=== PATIENT | male | born 1945 | race Caucasian/White ===

== ENCOUNTER 2019-10-19 19:20 | Inpatient (IN) | payer OTHER, MEDICARE, SELFPAY ==
--- NOTE | 2019-10-19 19:27 | ECG_ITS ---
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 Measurements Intervals [place] Rate: 77 P: DE: -1 QRS: -24 QRSD: 101 T: 31 QT: 309 QTc: 352 Interpretive Statements ATRIAL FIBRILLATION WITH ABERRANT CONDUCTION OR VENTRICULAR PREMATURE COMPLEXES BORDERLINE LEFT AXIS DEVIATION [QRS AXIS < -20] NONSPECIFIC ST & T-WAVE ABNORMALITY ABNORMAL RHYTHM ECG Compared to ECG 07/29/2018 02:25:55 T-wave abnormality now present Myocardial infarct finding no longer present Electronically Signed On 10-20-2019 19:16:35 CDT by Mainor Zhu M.D. [id number]
--- NOTE | 2019-10-19 20:13 | XR_ITS ---
WS: [id number] Portable AP upright chest, 10/19/2019 Clinical Data: SOB Comparison: Portable chest, 07/28/2018. Findings: The pulmonary vascularity is increased. No nodules, masses or effusions are seen. The heart is enlarged. The aortic arch and descending aorta show tortuosity. No pneumonia or pneumothorax is p resent. XR/XR chest 1V portable [id number] Impression: 1. Cardiomegaly and pulmonary vascular congestion. 2. Atherosclerosis.
--- NOTE | 2019-10-19 20:20 | ED_ITS ---
HPI - Weakness General: Stated complaint: WEAKNESS Time Seen by Provider: 10/19/19 19:40 History of Present Illness: HPI Narrative: This patient is a 73-year-old male presents today with weakness. He said he is so weak that he can even get up out of a chair. He normally is alert and active. His symptoms started a week ago after he traveled to his sister's house in [place]. He said at about a 600 mile trip and while he was there he was just tired and they did not really do much. After he got home though weakness and fatigue continued and he came in today for evaluation. He denies chest pain. He has had stents placed in the past and did not have chest pain associated with those episodes. He has had a relatively normal appetite. He denies shortness of breath or cough. He denies fevers chills or body aches. He denies urinary symptoms. He denies changes in bowel habits. He has no pain anywhere. He denies muscle aches. He denies headache or confusion. He is a diabetic and said his blood sugars been fairly well controlled around 120 or 130. He has not had episodes like this before. Complaint: generalized weakness Onset (ago): week(s) (1) Duration: constant Location: generalized Associated symptoms: Denies chest pain, chills, easy bruising, fever(s), headache(s), nausea, short of breath or vomiting Review of Systems General: Reports: 10 or more systems reviewed and unremarkable except in HPI and below Const: Reports: fatigue; Denies: fever(s), chills or malaise Eyes: Denies: change in vision ENMT: Denies: odynophagia Card: Denies: chest pain or swelling of feet/ankles Resp: Denies: dyspnea, productive cough or non-productive cough GI: Denies: abdominal pain, nausea or vomiting : Denies: flank pain Musc: Denies: neck pain or back pain Skin/Breast: Denies: rash Neuro: Reports: other (Generalized weakness); Denies: headache(s), numbness in extremities or weakness in extremities Darvin/Lymph: Denies: easy bruising or easy bleeding PFS ED PFSH: Medical History Atrial fibrillation CAD (coronary artery disease) CHF (congestive heart failure) CKD (chronic kidney disease) Diabetes Hyperlipidemia Hypertension Obesity Renal stones Surgical History History of hernia repair Family History Other CAD (coronary artery disease) Cancer Diabetes Social History Smoking and tobacco status: never smoked Alcohol intake: never Substance/Drug Use: never Lives independently: Yes Household members: other Details: child and grandchild. Housing: Other Current occupational status: retired Physical Exam Const: COMMON NORMALS: no acute distress, patient oriented x3, no limitations and alert GENERAL APPEARANCE: cooperative and comfortable HENMT: HEAD & SCALP: normal to inspection FACE & SINUS: normal facial exam Eye: GENERAL EYE: appearance normal, both eyes and all related structures Neck/C-Spine: COMMON NORMALS: supple, no meningeal signs and no JVD Chest: COMMONS NORMALS: normal inspection of the chest Resp: COMMON NORMALS: normal respiratory effort, No use of accessory muscles and clear to auscultation bilaterally AUSCULTATION: clear to auscultation bilaterally Cardio: COMMON NORMALS: no JVD, regular rate, regular rhythm and No murmurs present (Cardio) RATE: regular rate RHYTHM: regular rhythm GI: COMMON NORMALS: Normal to inspection, nondistended, normoactive bowel sounds present, Soft to palpation and non-tender INSPECTION: Yes normal to inspection AUSCULTATION: Yes normoactive bowel sounds PALPATION: Yes Soft to palpation Back/Pelvis: COMMON NORMALS: thoracic and lumbar spine normal to inspection Extremity: COMMON NORMALS: normal to inspection Neuro: COMMON NORMALS: patient oriented x3, moves all extremities, no focal motor deficits and no sensory deficits noted SENSORIUM/ORIENTATION: Yes alert MENINGEAL SIGNS: Yes no meningeal signs Psych: COMMON NORMALS: mental status grossly normal, cooperative and normal affect Skin: COMMON NORMALS: no rashes or lesions noted and turgor normal GENERAL SKIN EXAM: no rashes or lesions noted and turgor normal Course ED course: Patient continues to be awake and alert in the ED. He was comfortable. He complained of being thirsty. He continued to deny dyspnea although was clearly tachypneic and somewhat labored. Sats were in the low 90s on oxygen supplementation. He is agreeable to admission for further work-up. Discussed with Dr. Briones. Vital Signs: Vital signs: Vital Signs Temperature 98.5 F 10/21/19 02:44 Pulse Rate 68 10/21/19 02:44 Respiratory Rate 32 H 10/21/19 02:44 Blood Pressure 106/68 10/21/19 02:44 Pulse Oximetry 93 10/21/19 03:37 MDM - Weakness MDM Narrative: Medical decision making narrative: Generalized weakness with really no other focal symptoms. History of CHF. History of A. fib on amiodarone. History of travel with a 600 mile car trip. No known exposure to COVID but again, he has had recent travel. No fever cough. Requiring oxygen which is not his typical. His sats are 91% on 2 L. Question of CHF versus PE versus COVID. CT angiogram cannot be done due to his chronic renal failure. BNP is not significantly elevated but will treat with some Lasix. Amiodarone induced pulmonary fibrosis is also a concern. Admit for further work-up. Empiric treatment with Lovenox. COVID testing. Lab Data: Labs: Lab Results 10/19/19 10/19/19 10/19/19 Range/Units 19:55 19:55 19:55 WBC 8.5 (4.0-10.0) 10^3/ uL RBC 4.63 (4.1-5.3) 10^6/u L Hgb 14.2 (11.7-16.6) g/dL Hct 44.4 (42.0-52.0) % MCV 95.9 H (80-94) fL MCH 30.7 (28.0-34.0) pg MCHC 32.0 (30.0-36.0) g/dL RDW 12.3 (12.1-15.1) % Plt Count 164 (130-400) 10^3/c mm MPV 11.1 H (7.4-10.4) fL Neut % (Auto) 78.4 % Lymph % (Auto) 13.5 % Titus % (Auto) 7.8 % Eos % (Auto) 0.0 % Baso % (Auto) 0.1 % Neut # (Auto) 6.63 (1.8-7.7) 10^3/u L Lymph # (Auto) 1.1 (0.8-4.8) 10^3/u L Titus # (Auto) 0.7 (0.2-0.9) 10^3/u L Eos # (Auto) 0.0 (0.0-0.8) 10^3/u L Baso # (Auto) 0.0 (0.0-0.1) 10^3/u L Nucleated RBC % (a uto) 0 % Nucleated RBCs # 0.0 /100WBC ESR (0-10) mm/hr D-Dimer (0-0.59) ug/mIFE U Sodium 138 (136-145) mmol/L Potassium 3.8 (3.5-5.1) mmol/L Chloride 96 L (98-107) mmol/L Carbon Dioxide 29 (22-29) mmol/L Anion Gap 16.8 (5-19) BUN 26 H (8-23) mg/dL Creatinine 2.2 H (0.7-1.2) mg/dL Glucose 148 H (65-115) mg/dL Calculated Osmolal ity 286 (285-295) mOsm/k g Lactate (0.5-2.2) mmol/L Calcium 8.7 (8.5-10.5) mg/dL Magnesium 2.4 H (1.7-2.3) mg/dL Total Bilirubin 0.6 (0.15-1.2) mg/dL AST 58 H (0-40) U/L ALT 42 H (0-41) U/L Alkaline Phosphata se 47 (40-130) IU/L Creatine Kinase 478 H* (39-308) U/L Troponin T Baselin e 29 H (0-15) ng/L Troponin T 120 Min chicken ranch (0-15) ng/L Delta Troponin T (0-10) ABS# C-Reactive Protein (0.0-4.9) mg/L NT-Pro-B Natriuret Pep 786 H (0-125) pg/mL Total Protein 7.0 (6.6-8.7) g/dL Albumin 3.2 L (3.5-5.2) g/dL Globulin 3.8 (1.3-4.6) g/dL Procalcitonin (0-0.5) ng/mL TSH 0.80 (0.27-4.20) uIU/ mL Urine Color (Yellow) Urine Appearance (CLEAR) Urine pH (5-7) Ur Specific Gravit y (1.005-1.030) Urine Protein (Negative) Urine Glucose (UA) (Normal) Urine Ketones (Negative) Urine Blood (Negative) Urine Nitrate (Negative) Urine Bilirubin (NEGATIVE) Urine Urobilinogen (Negative) mg/dL Ur Leukocyte Oksana ase (Negative) Urine RBC (0-2) /hpf Urine WBC (0-5) /hpf Ur Squamous Epith Cells (0-5) Urine Bacteria (NONE) Hyaline Casts 10/19/19 10/19/19 10/19/19 Range/Units 19:55 19:55 19:55 WBC (4.0-10.0) 10^3/ uL RBC (4.1-5.3) 10^6/u L Hgb (11.7-16.6) g/dL Hct (42.0-52.0) % MCV (80-94) fL MCH (28.0-34.0) pg MCHC (30.0-36.0) g/dL RDW (12.1-15.1) % Plt Count (130-400) 10^3/c mm MPV (7.4-10.4) fL Neut % (Auto) % Lymph % (Auto) % Titus % (Auto) % Eos % (Auto) % Baso % (Auto) % Neut # (Auto) (1.8-7.7) 10^3/u L Lymph # (Auto) (0.8-4.8) 10^3/u L Titus # (Auto) (0.2-0.9) 10^3/u L Eos # (Auto) (0.0-0.8) 10^3/u L Baso # (Auto) (0.0-0.1) 10^3/u L Nucleated RBC % (a uto) % Nucleated RBCs # /100WBC ESR 80 H (0-10) mm/hr D-Dimer 0.80 H (0-0.59) ug/mIFE U Sodium (136-145) mmol/L Potassium (3.5-5.1) mmol/L Chloride (98-107) mmol/L Carbon Dioxide (22-29) mmol/L Anion Gap (5-19) BUN (8-23) mg/dL Creatinine (0.7-1.2) mg/dL Glucose (65-115) mg/dL Calculated Osmolal ity (285-295) mOsm/k g Lactate 1.5 (0.5-2.2) mmol/L Calcium (8.5-10.5) mg/dL Magnesium (1.7-2.3) mg/dL Total Bilirubin (0.15-1.2) mg/dL AST (0-40) U/L ALT (0-41) U/L Alkaline Phosphata se (40-130) IU/L Creatine Kinase (39-308) U/L Troponin T Baselin e (0-15) ng/L Troponin T 120 Min chicken ranch (0-15) ng/L Delta Troponin T (0-10) ABS# C-Reactive Protein (0.0-4.9) mg/L NT-Pro-B Natriuret Pep (0-125) pg/mL Total Protein (6.6-8.7) g/dL Albumin (3.5-5.2) g/dL Globulin (1.3-4.6) g/dL Procalcitonin (0-0.5) ng/mL TSH (0.27-4.20) uIU/ mL Urine Color (Yellow) Urine Appearance (CLEAR) Urine pH (5-7) Ur Specific Gravit y (1.005-1.030) Urine Protein (Negative) Urine Glucose (UA) (Normal) Urine Ketones (Negative) Urine Blood (Negative) Urine Nitrate (Negative) Urine Bilirubin (NEGATIVE) Urine Urobilinogen (Negative) mg/dL Ur Leukocyte Oksana ase (Negative) Urine RBC (0-2) /hpf Urine WBC (0-5) /hpf Ur Squamous Epith Cells (0-5) Urine Bacteria (NONE) Hyaline Casts 10/19/19 10/19/19 10/19/19 Range/Units 19:55 20:25 21:40 WBC (4.0-10.0) 10^3/ uL RBC (4.1-5.3) 10^6/u L Hgb (11.7-16.6) g/dL Hct (42.0-52.0) % MCV (80-94) fL MCH (28.0-34.0) pg MCHC (30.0-36.0) g/dL RDW (12.1-15.1) % Plt Count (130-400) 10^3/c mm MPV (7.4-10.4) fL Neut % (Auto) % Lymph % (Auto) % Titus % (Auto) % Eos % (Auto) % Baso % (Auto) % Neut # (Auto) (1.8-7.7) 10^3/u L Lymph # (Auto) (0.8-4.8) 10^3/u L Titus # (Auto) (0.2-0.9) 10^3/u L Eos # (Auto) (0.0-0.8) 10^3/u L Baso # (Auto) (0.0-0.1) 10^3/u L Nucleated RBC % (a uto) % Nucleated RBCs # /100WBC ESR (0-10) mm/hr D-Dimer (0-0.59) ug/mIFE U Sodium (136-145) mmol/L Potassium (3.5-5.1) mmol/L Chloride (98-107) mmol/L Carbon Dioxide (22-29) mmol/L Anion Gap (5-19) BUN (8-23) mg/dL Creatinine (0.7-1.2) mg/dL Glucose (65-115) mg/dL Calculated Osmolal ity (285-295) mOsm/k g Lactate (0.5-2.2) mmol/L Calcium (8.5-10.5) mg/dL Magnesium (1.7-2.3) mg/dL Total Bilirubin (0.15-1.2) mg/dL AST (0-40) U/L ALT (0-41) U/L Alkaline Phosphata se (40-130) IU/L Creatine Kinase (39-308) U/L Troponin T Baselin e (0-15) ng/L Troponin T 120 Min chicken ranch 29.51 H (0-15) ng/L Delta Troponin T 0.51 (0-10) ABS# C-Reactive Protein 159.4 H (0.0-4.9) mg/L NT-Pro-B Natriuret Pep (0-125) pg/mL Total Protein (6.6-8.7) g/dL Albumin (3.5-5.2) g/dL Globulin (1.3-4.6) g/dL Procalcitonin 0.29 (0-0.5) ng/mL TSH (0.27-4.20) uIU/ mL Urine Color Yellow (Yellow) Urine Appearance Clear (CLEAR) Urine pH 5 (5-7) Ur Specific Gravit y 1.015 (1.005-1.030) Urine Protein 1+ H (Negative) Urine Glucose (UA) Norm (Normal) Urine Ketones Negative (Negative) Urine Blood 2+ H (Negative) Urine Nitrate Negative (Negative) Urine Bilirubin Neg (NEGATIVE) Urine Urobilinogen Norm (Negative) mg/dL Ur Leukocyte Oksana ase Negative (Negative) Urine RBC 0-4 H (0-2) /hpf Urine WBC None (0-5) /hpf Ur Squamous Epith Cells None (0-5) Urine Bacteria Trace (NONE) Hyaline Casts 5-10 H EKG Data^: EKG 1: EKG interpretation date: 10/19/19 EKG interpretation time: 20:48 Interpretation: A. fib with a rate of 77. QRS duration is 101 ms. Some PVCs noted. T waves are flat with no noted elevation. Discharge Plan Discharge Admit Provider: Jose Eduardo Briones Discharge Date/Time: 10/20/19 01:28 Coding Level of Care Code ED Software Test Automation Engineer for Chg Fwd Exam Comprehensive
[2019-10-19 20:26] LABS: Basophils % 0.1 %; Hematocrit 44.4 % (42.0-52.0); Hemoglobin 14.2 g/dL (11.7-16.6); Lymphocytes # 1.1 10^3/uL (0.8-4.8); Lymphocytes % 13.5 %; Mean Corpuscular Hemoglobin 30.7 pg (28.0-34.0); Mean Corpuscular Volume 95.9 fL (80-94); Mean Platelet Volume 11.1 fL (7.4-10.4); Monocytes # 0.7 10^3/uL (0.2-0.9); Monocytes % 7.8 %; Neutrophils # 6.63 10^3/uL (1.8-7.7); Neutrophils % 78.4 %; Nucleated Red Blood Cells % 0 %; Platelet Count 164 10^3/cmm (130-400); Red Blood Count 4.63 10^6/uL (4.1-5.3); Red Cell Distribution Width 12.3 % (12.1-15.1); White Blood Count 8.5 10^3/uL (4.0-10.0)
[2019-10-19 20:53] LABS: Troponin(5th) Baseline 29 ng/L (0-15)
[2019-10-19 20:55] LABS: Alanine Aminotransferase 42 U/L (0-41); Albumin Level 3.2 g/dL (3.5-5.2); Alkaline Phosphatase 47 IU/L (40-130); Anion Gap 16.8 (5-19); Aspartate Amino Transferase 58 U/L (0-40); Blood Urea Nitrogen 26 mg/dL (8-23); Calcium 8.7 mg/dL (8.5-10.5); Carbon Dioxide 29 mmol/L (22-29); Chloride 96 mmol/L (98-107); Globulin 3.8 g/dL (1.3-4.6); Glucose 148 mg/dL (65-115); Magnesium 2.4 mg/dL (1.7-2.3); NT Pro B Type Natriuretic Pept 786 pg/mL (0-125); Osmolality Calculated 286 mOsm/kg (285-295); Potassium 3.8 mmol/L (3.5-5.1); Sodium 138 mmol/L (136-145); Total Bilirubin 0.6 mg/dL (0.15-1.2)
[2019-10-19 20:58] LABS: Bilirubin Urine Neg (NEGATIVE); Blood Urine 2+ (Negative); Glucose Urine UA Norm (Normal); Ketones Urine Negative (Negative); Leukocyte Esterase Urine Negative (Negative); Nitrate Urine Negative (Negative); Protein Urine 1+ (Negative); Specific Gravity, Urine 1.015 (1.005-1.030); Urine Appearance Clear (CLEAR); Urine Color Yellow (Yellow); Urobilinogen Urine Norm (Negative); pH Urine 5 (5-7)
[2019-10-19 21:02] LABS: RBC Urine 0-4 /hpf (0-2)
[2019-10-19 21:03] LABS: Add Urine Culture? No; Bacteria Urine TRACE
[2019-10-19 21:14] LABS: Creatine Phosphokinase 478 U/L (39-308)
--- NOTE | 2019-10-19 21:27 | ECG_ITS ---
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 Measurements Intervals [place] Rate: 77 P: UT: -1 QRS: -25 QRSD: 96 T: 13 QT: 395 QTc: 448 Interpretive Statements ATRIAL FIBRILLATION WITH ABERRANT CONDUCTION OR VENTRICULAR PREMATURE COMPLEXES BORDERLINE LEFT AXIS DEVIATION [QRS AXIS < -20] NONSPECIFIC ST & T-WAVE ABNORMALITY ABNORMAL RHYTHM ECG Compared to ECG 10/19/2019 19:44:24 No significant changes Electronically Signed On 10-20-2019 19:19:04 CDT by Mainor Zhu M.D. [email or web address]Legal Eggnoxubee general hospitalMovarispremier health mi[facility] [email or web address].VULCUN/store/[id number]
[2019-10-19 21:50] LABS: Lactate (Lactic Acid level) 1.5 mmol/L (0.5-2.2)
[2019-10-19 22:00] LABS: Procalcitonin 0.29 ng/mL (0-0.5)
[2019-10-19] MEDS: FUROsemide 10 mg/mL SDV 4mL 40 MG IVP (22:02)
[2019-10-19] MEDS: enoxaparin 100 mg/mL Syringe SUBCUT (22:03)
[2019-10-19 22:10] LABS: C Reactive Protein 159.4 mg/L (0.0-4.9)
[2019-10-19 22:15] LABS: Troponin 5 2HR 29.51 ng/L (0-15); Troponin 5 2HR Delta 0.51 ABS# (0-10)
[2019-10-19 22:25] LABS: ABG PCO2 38.3 mmHg (35-45); ABG PH Result 7.47 (7.35-7.45); Arterial Blood Gas Hematocrit 44.3 % (42-52); Base Excess ABG 4.3 mmol/L (-2.0-2.0); Blood Gas Allen Test Pos; Blood Gas Sample Site Brachial, right; Blood Gas Sample Type Arterial; HCO3 ABG 28.1 mmol/L (22-26); Oxygen Device NC
[2019-10-19 22:31] LABS: Erythrocyte Sedimentation Rate 80 mm/hr (0-10)
[2019-10-20] VITALS (39 sets, daily range): BP systolic 112–166; BP diastolic 67–93; PULSE 64–100; RESP 14–37; TEMP 36.7–38.3; O2SAT 85–96
--- NOTE | 2019-10-20 01:27 | ECG_ITS ---
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 Measurements Intervals [place] Rate: 79 P: ND: -1 QRS: -30 QRSD: 104 T: 31 QT: 308 QTc: 354 Interpretive Statements ATRIAL FIBRILLATION BORDERLINE LEFT AXIS DEVIATION [QRS AXIS < -20] NONSPECIFIC ST & T-WAVE ABNORMALITY ABNORMAL RHYTHM ECG Compared to ECG 10/19/2019 21:26:24 Ventricular premature complex(es) no longer present Aberrant conduction of supraventricular beat(s) no longer present T-wave abnormality still present Electronically Signed On 10-20-2019 19:19:31 CDT by Mainor Zhu M.D. [email or web address] [email or web address] regional health centerPopJamwilson [email or web address].[email or web address]/store/[id number]
[2019-10-20 02:11] LABS: Troponin 5 6HR 17.12 ng/L (0-15)
--- NOTE | 2019-10-20 02:24 | P.HP_ITS ---
Providers/Chief Complaint Admitting Physician: Jose Eduardo Briones Primary Care Provider: Nahum Mccarthy Chief Complaint: WEAKNESS History of Present Illness Vinh Potts is a pleasant 73 year old gentleman with past medical history of CAD, paroxysmal atrial fibrillation, chronic disease, DM 2, HLD, HTN, obesity reports about a 2-week history of progressive malaise, fatigue/generalized weakness. He reports that his symptoms originally started when he was out with his son-in-law driving to [place] for a visit where he stayed for about a week, with symptoms starting about 2 hours into the outbound trip. He states that he felt unwell through most of his stay in [place], except continued after coming back here about a week ago. He states he has been having fatigue, and some shortness of breath, but otherwise denies any chills, fever, muscle aches, headache, sore throat, runny nose or loss of sensation of smell. Here he was noted with hypoxia, requiring 2 L of nasal cannula oxygen initially, but subsequently up to 6 L. With noted fever 100.9. With noted diffuse infiltrates on chest x-ray, worse on the right. He denies any chest pain or cough. Denies any sputum production or hemoptysis. He takes Eliquis, although is not entirely sure what for, but appears likely for atrial fibrillation. He says he has not missed any doses. Review of Systems Const: Denies: fever(s), chills, body aches or malaise Eyes: Denies: change in vision or eye redness ENMT: Denies: throat pain, oral sores or ear or mastoid pain Card: Denies: chest pain, edema, pre-syncope or dyspnea on exertion Resp: Denies: dyspnea, productive cough, change in phlegm color or hemoptysis GI: Denies: abdominal pain, nausea, vomiting, diarrhea, constipation, hematochezia or melena : Denies: flank pain, difficulty urinating, urinary frequency or hematuria Musc: Denies: back pain, joint swelling or joint redness Skin/Breast: Denies: rash, sores or new lesions Neuro: Denies: headache(s), numbness in extremities, weakness in extremities, dizziness, confusion or seizure-like activity Endo: Denies: polyuria or polydipsia Darvin/Lymph: Denies: easy bleeding or purpura All/Imm: Denies: urticaria, throat swelling or tongue swelling Medications/Allergies Home Medications Medication Instructions Recorded Confirmed Last Taken Type amiodarone 200 mg tablet 200 mg PO DAILY 07/28/19 Unknown History apixaban 5 mg tablet 5 mg PO BID 07/28/19 Unknown History atorvastatin 80 mg tablet 80 mg PO DAILY 07/28/19 Unknown History calcitriol 0.25 mcg capsule 0.25 mcg PO DAILY 07/28/19 Unknown History carvedilol 12.5 mg tablet 12.5 mg PO BID 07/28/19 Unknown History cholecalciferol (vitamin D3) 50 50 mcg PO DAILY 07/28/19 Unknown History mcg (2,000 unit) capsule clopidogrel 75 mg tablet 75 mg PO DAILY 07/28/19 Unknown History doxazosin 4 mg tablet 4 mg PO DAILY 07/28/19 Unknown History furosemide 20 mg tablet 40 mg PO BID tab 07/28/19 Unknown History glipizide 5 mg tablet 2.5 mg PO BID tab 07/28/19 Unknown History insulin aspart U-100 100 unit/mL 18 unit SUBCUT DAILY ml 07/28/19 Unknown History (3 mL) subcutaneous pen insulin glargine 100 unit/mL 100 unit SUBCUT DAILY 07/28/19 Unknown History subcutaneous solution lisinopril 20 mg tablet 20 mg PO DAILY 07/28/19 Unknown History omega-3 fatty acids 1,000 mg 1,000 mg PO BID 07/28/19 Unknown History capsule potassium chloride 20 mEq 10 meq PO DAILY tab 07/28/19 Unknown History tablet,extended release(part/cryst) Allergies Allergy/AdvReac Type Severity Reaction Status Date / Time No Known Allergies Allergy Unverified 07/28/19 12:45 PFSH Acute PFSH: Medical History Atrial fibrillation CAD (coronary artery disease) CHF (congestive heart failure) CKD (chronic kidney disease) Diabetes Hyperlipidemia Hypertension Obesity Renal stones Surgical History History of hernia repair Family History Other CAD (coronary artery disease) Cancer Diabetes Social History Smoking and tobacco status: never smoked Alcohol intake: never Substance/Drug Use: never Lives independently: Yes Household members: other Details: child and grandchild. Housing: Other Current occupational status: retired Vitals/I&O/Wt Last Vital Signs Temp 100.9 F H 10/20/19 02:07 Pulse 96 10/20/19 02:07 Resp 36 H 10/20/19 02:07 BP 166/70 10/20/19 02:07 Pulse Ox 91 10/20/19 02:07 Physical Exam Const: COMMON NORMALS: no acute distress and patient oriented x3 HENMT: COMMON NORMALS: oropharynx normal Neck/C-Spine: COMMON NORMALS: no JVD Resp: COMMON NORMALS: normal respiratory effort AUSCULTATION: diminished lung sounds Cardio: COMMON NORMALS: no JVD, regular rhythm, S1 normal heart sound present, S2 normal heart sound present and No murmurs present (Cardio) RHYTHM: regular rhythm HEART SOUNDS: S1 normal heart sound present and S2 normal heart sound present GI: COMMON NORMALS: Normal to inspection, nondistended, normoactive bowel s ounds present, Soft to palpation and non-tender PALPATION: Yes Soft to palpation Extremity: COMMON NORMALS: no joint enlargement and no pedal edema Neuro: COMMON NORMALS: patient oriented x3 and moves all extremities Skin: COMMON NORMALS: no rashes or lesions noted GENERAL SKIN EXAM: no rashes or lesions noted Data : 10/19/19 19:55 10/19/19 19:55 A&P Assessment and plan (1) Acute respiratory failure with hypoxia: With fatigue/generalized weakness. Has been doing well on 2 L nasal cannula, however, is needing increase up to 6 L, saturating 92%. D-dimer was checked, and is high, initially there was consideration of possible PE given recent travel, however, he is on Eliquis, and states has not missed any doses. Received a dose of Lovenox in ER, however, may continue Eliquis. He has noted history of CHF, however, on review of last echocardiogram, this was done in 2017, with normal ejection fraction, but with pulmonary hypertension. He has no chest pain. Troponin minimally elevated. A. fib rhythm on EKG. Pneumonia, community-acquired, is considered given his fever, hypoxia. He does not have significant cough. There are diffuse opacities, worse on the right. He reportedly subjectively was not considerably short of breath. He does state that he has been social distancing, and wearing a mask while in public. He does live with his child and grandchild at home. Recently his travel to [place], although does state that symptoms were starting already on the way there. Will be assessed for COVID-19, requested also rapid flu. Request for sputum culture, bacterial antigens. For now empirically will cover with Levaquin. However, as discussed with him concern is higher for viral pneumonia. Maintain in isolation at this time. Prescription of goals of care and CODE STATUS with him, he states he would not want CPR in case of cardiopulmonary arrest, and giving it consideration, states would not want even temporary intubation in case of worsening respiratory status. He would be okay with receiving CPAP or BiPAP support if necessary. Status: Acute (2) Community acquired pneumonia: As above. Status: Acute (3) Acute kidney injury superimposed on CKD: Creatinine 2.2. Stage III chronic disease. Baseline creatinine appears around 2. Monitor renal function, urine output. Hold lisinopril for now. Status: Acute (4) Transaminitis: Mild transaminitis. Will hold statin for now. Recheck. Consider that he is also on amiodarone if there is no improvement. Status: Acute (5) Elevated erythrocyte sedimentation rate: Unclear reason obvious elevation at this time. Will request for CRP. Status: Acute (6) Elevated CK: Suspect may be mild rhabdomyolysis secondary to statin. Hold statin for now. Recheck. Monitor renal function. Status: Acute (7) Hypoglycemia: Hold lantus for now. Hold novolog when she takes 24 units of in the morning and afternoon. Blood glucose was as low as 60. Please reassess, resume insulin therapy when appropriate. Status: Acute Additional A&P Information History of CHF: Reported. He takes Lasix at home. Will transition to IV 40 mg twice a day. Avoid fluid overload. HTN HLD CAD Diabetes Other chronic problems Attestations Medical Necessity Statement*: Admission of over 2 midnights is going to needed for assessment of management of acute respiratory failure with hypoxia. 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
--- NOTE | 2019-10-20 02:38 | PC.NURSE ---
Pt arrived to floor from ER via stretcher. States that he is very weak and unable to stand. Pt is also dyspneic at rest and of course, extremely worse with very minimal activity. O2 at 4 L from ER and pulse ox 86-89%. Therefore, O2 increased to 6L. O2 improved to 90-91%. RR 30-40 bpm with accessory muscle use. Mild non productive cough. Denies home O2. Pt slid over with x3 assist to bed. Cleaned of incontinent urine and bowel episode. Repositioned in bed. No complaints of pain. Noted BLE edema +1. Dr. Paulino at bedside assessing patient. Pt instructed how to use call button and oriented to room. No further needs addressed at this time. Respiratory therapy notified of current respiratory status.
[2019-10-20] MEDS: levofloxacin-dextrose 5 % 750 MG/150 ML PREMIX 100 MG IV (04:00)
[2019-10-20] MEDS: sodium chloride 0.9% (100 ml) 100 ML 10 ML (04:30)
--- NOTE | 2019-10-20 04:32 | PC.NURSE ---
Pt resting in bed. Still dyspneic at rest with tachypnea. On high flow nasal cannula at 6L. Desat with minimal talking. No complaints of pain. Snack provided. Denies need to urinate. IV atb infusing per orders, SEE MAR. EKG performed. Labs obtained. No further needs at this time.
[2019-10-20 04:48] LABS: C Reactive Protein 154.1 mg/L (0.0-4.9)
[2019-10-20 05:10] LABS: Influenza A by IFA Negative (Negative); Influenza B by IFA Negative (Negative)
[2019-10-20 06:26] LABS: Glucose Point of Care 229 mg/dL (70-110)
--- NOTE | 2019-10-20 06:44 | PC.NURSE ---
Pt assisted with urinal. Becomes very dyspneic even with assist. O2 increased to 8L Nc due to O2 sat not improving with rest. 200ml urine output. Dr. Paulino notified and ordered davis cath to be placed. Attempted to place davis catheter but stock is out on all units at this time. Storeroom notified and asked to deliver davis catheter TG. Pt assisted to bedside commode with x1 assist. O2 decreased to 80%. Slow to return. Loose, watery, malodorous stool. Will notiy oncoming shift.
[2019-10-20] MEDS: albuterol 8 gm MDI 1 PUFF INHALATION ×3 (07:46→15:38)
--- NOTE | 2019-10-20 08:08 | USCV_ITS ---
Vinh Potts Age: 73 Gender: M : 1945 Exam Date: 10/20/2019 09:40 Ordering Phys: Hermes Tobar MD Technologist: Agnes Lou Exam Location: [facility] [place] Indication: sob BP: 120 / 72 HR: 76 Rhythm: Sinus Technical Quality: Fair MEASUREMENTS (Male / Female) Normal Values 2D ECHO LV Diastolic Diameter PLAX 3.6 cm 4.2 - 5.9 / 3.9 - 5.3 cm LV Systolic Diameter PLAX 2.4 cm IVS Diastolic Thickness 0.8 cm 0.6 - 1.0 / 0.6 - 0.9 cm IVS Systolic Thickness 1.8 cm LVPW Diastolic Thickness 1.0 cm 0.6 - 1.0 / 0.6 - 0.9 cm LVPW Systolic Thickness 1.2 cm LVOT Diameter 2.1 cm LV Ejection Fraction 2D Teich 65.2 % LV Ejection Fraction MOD 2C 56.1 % LV Ejection Fraction 2C AL 56.1 % LA Diameter 4.2 cm LA Width 4.0 cm LA Height 6.8 cm RA Width 3.5 cm RA Height 5.0 cm M-MODE LV Diastolic Diameter MM 3.7 cm 4.2 - 5.9 / 3.9 - 5.3 cm LV Systolic Diameter MM 1.8 cm LV Ejection Fraction MM Teich 83.7 % IVS Diastolic Thickness MM 1.7 cm 0.6 - 1.0 / 0.6 - 0.9 cm IVS Systolic Thickness MM 2.1 cm LVPW Diastolic Thickness MM 1.3 cm 0.6 - 1.0 / 0.6 - 0.9 cm LVPW Systolic Thickness MM 2.0 cm Aortic Annulus Diameter 3.3 cm LA Ao Ratio MM 1.3 MV E Point Septal Separation 0.6 cm DOPPLER AV Peak Velocity 134.0 cm/s LVOT Peak Velocity 80.0 cm/s AV Area Cont Eq vti 2.5 cm squared AV Area Cont Eq pk 2.0 cm squared MV Peak Velocity 115.0 cm/s MV Area PHT 3.1 cm squared Mitral E to A Ratio 4.6 MV E' Velocity 8.0 cm/s Mitral E to MV E' Ratio 11.9 Mitral E to LV E' Lateral Ratio 12.2 Mitral E to LV E' Septal Ratio 11.6 TR Peak Velocity 119.0 cm/s TR Peak Gradient 5.7 mmHg Right Atrial Pressure 3.0 mmHg Pulmonary Artery Systolic Pressu 8.7 mmHg PV Peak Velocity 90.0 cm/s RV Acceleration Time 0.1 s FINDINGS Left Ventricle Normal left ventricular size and systolic function with no regional wall motion abnormalities. Left ventricular ejection fraction is estimated at 63 %. Right Ventricle Normal right ventricular size and systolic function, RVSP 8.7 mmHg. Right Atrium Right atrium not well visualized. Normal right atrial size. Left Atrium Left atrium not well visualized. Mitral Valve Mitral valve not well visualized. Aortic Valve Structurally normal trileaflet aortic valve. No aortic valve stenosis. Tricuspid Valve Structurally normal tricuspid valve. Trace tricuspid valve regurgitation. Pulmonic Valve Pulmonic valve not well visualized. No pulmonary valve stenosis. Pericardium No pericardial effusion. Aorta Aorta not well visualized. CONCLUSIONS 1. This is a technically difficult study. 2. Normal left ventricular size and systolic function with no diagnostic regional wall motion abnormalities. Left ventricular ejection fraction is estimated at 63 %. 3. Normal right ventricular size and systolic function. 4. Normal pulmonary artery pressure. 5. No significant valvular abnormality. 6. When compared to previous echocardiogram dated 10/30/2016, there may not have been any significant change. Angélica Eden MD (Electronically Signed) Final Date: 20 October 2019 18:08 S
--- NOTE | 2019-10-20 08:08 | CT_ITS ---
WS: [id number] CT CHEST TECHNIQUE: Noncontrast CT of the chest with coronal and sagittal reformatted images. CLINICAL INFORMATION: sob COMPARISON: None. DLP: 645.[address] scans at [facility] use at least one of these dose optimization techniques: automat ed exposure control; mA and/or kV adjustment per patient size (includes targeted exams where dose is matched to clinical indication); or iterative reconstruction. FINDINGS: Moderate chronic emphysematous changes. Diffuse hazy groundglass infiltrates throughout both lungs. N o focal consolidation. Coronary calcification. No mediastinal or hilar lymphadenopathy. No axillary l ymphadenopathy. Partially visualized large gallstone. No significant pleural fluid. No pericardial fluid. Small cyst noted in the liver measuring 2.3 cm. Normal GE junction. Fatty atrophy of the pancreas. Adrenal gland s are normal. Hypertrophic changes thoracic spine. Notified Hermes Tobar MD at 10/20/2019 1:[address]/CT chest wo con [id number] IMPRESSION: 1. Diffuse hazy groundglass infiltrates throughout both lungs. Findings are no nspecific but can be seen with atypical pneumonia or viral pneumonias including Covid-19. 2. No significant pleural fluid. No focal consolidation. 3. No mediastinal or hilar lymphadenopathy. 4. Coronary calcification. 5. Prominent gallstone in the gallbladder. Gallbladder appears contracted. No visualized wall thickening or fluid.
[2019-10-20 08:47] LABS: NT Pro B Type Natriuretic Pept 650 pg/mL (0-125); Procalcitonin 0.31 ng/mL (0-0.5); Thyroid Stimulating Hormone 0.34 uIU/mL (0.27-4.20)
[2019-10-20] MEDS: apixaban 5 mg Tablet PO ×2 (08:51→18:22)
[2019-10-20] MEDS: carvedilol 6.25 mg Tablet PO ×2 (08:51→18:22)
[2019-10-20] MEDS: clopidogrel 75 mg Tablet PO (08:51)
[2019-10-20] MEDS: azithromycin 500 MG in sodium chloride 0.9% 250 ML 250 MG IV (08:51)
[2019-10-20] MEDS: amiodarone 200 mg Tablet PO (08:51)
[2019-10-20 10:45] LABS: Cortisol Random 24.14 ug/mL (2.47-19.5)
[2019-10-20] MEDS: piperacillin-tazobactam 3.375 GM in sodium chloride 0.9% (plus) 50 ML IV ×2 (10:59→19:03)
[2019-10-20] MEDS: FUROsemide 10 mg/mL SDV 4mL 40 MG IVP ×2 (11:00→19:02)
[2019-10-20 11:20] LABS: Glucose Point of Care 308 mg/dL (70-110)
--- NOTE | 2019-10-20 11:22 | PC.CHAP ---
Pastoral Care Encounter/Spiritual Assessment Type of Contact [] Declined head machine feeder visit [] Patient/Family/Request visit [] Outpatient visit [] Follow-up visit [] Physician referral [] Code/Alert [] Routine visit [] Staff referral [] Actively dying [] Patient sleeping [] Family support [] [] Out of room [] Palliative care [] [] Receiving care in room [] Pre-surgical visit [] Trauma [] Long length of stay [] ICU visit [x] Other: Covid 19 testing Relational/Emotional Strength [] Patient feels connected with others/family/visitors/staff [] Distress [] Loneliness/isolation [] Abandonment Spirituality of Patient [] Person of Tiff [] Attends Episcopal of their Tiff [] Believes in Prayer [] Reads Bible or Roman Catholic materials [] There are Spiritual issues to be addressed Screener And Blender Interventions [] Prayer [] Active listening [] Non-anxious presence [] Spiritual/emotional support [] Crisis/trauma care [] Spiritual counseling [] Bereavement support [] Provided bereavement packet [] Provided Bible/devotional materials [] Provided toy/stuffed animal, coloring book to patient or family member [] Provided Communion [] Anointing/Fleming [] Salvation [] Completed spiritual assessment [] Other: Impact on Illness or Injury [] Angry [] Fearful [] Anxious [] Often cries [] Exhaustion [] Unable to work [] Unable to attend judaism [] Unable to walk/stand [] Unable to read [] Unable to drive [] Unable to eat/drink [] Unable to sleep [] Unable to be with family [] Patient intubated [] Other: Summary Other: Covid 19 testing Time spent with patient 5 mins
--- NOTE | 2019-10-20 14:00 | PC.NURSE ---
Order to transfer patient to ICU on hold per Dr. Tobar pending the covid test results. Dr. Tobar states the CT results are highly suggestive of positive covid results and if davin swab comes back positive patient will transfer to VICU instead.
--- NOTE | 2019-10-20 14:10 | PM.PN ---
Subjective Subjective: Interval history: This morning patient had evidence of acute respiratory distress, acute hypoxic respiratory failure requiring up to 7 L nasal cannula, I saw patient in the room this morning, mild nasal flaring, mild retractions, minimal wheezing, decreased breath sounds bilaterally, alert oriented x3, answering all questions appropriate, patient is adamant that he wants to remain DNR/DNI, okay with ICU admission, does not want heroic interventions -Patient states that he was down in [place] to see his sister, was pretty isolated with his sister, did do a couple stops on the way there on the way back, has been Ary, around his son, no sick contacts, -Continues to have shortness of breath fatigue, malaise, subjective fevers -I spoke to patient's daughter, advised her of his critical status, states that she has a daughter at home, and she is worried about exposure, she only, if it is absolutely necessary, she would like to be there for him but she is worried about her familys exposure Vitals/I&O/Wt Last Vital Signs Temp 98.5 F 10/20/19 10:42 Pulse 92 10/20/19 11:45 Resp 24 H 10/20/19 11:45 BP 131/79 10/20/19 10:42 Pulse Ox 94 10/20/19 11:45 10/19/19 10/20/19 10/20/19 22:59 06:59 14:59 Intake Total 600 / 600 Output Total 200 / 200 450 / 450 Balance -200 / -200 150 / 150 Weight last 48 hrs Weight 107.048 kg Weight 107.048 kg Physical Exam Const: COMMON NORMALS: no acute distress and patient oriented x3 GENERAL APPEARANCE: cooperative and ill appearing HENMT: COMMON NORMALS: normocephalic HEAD & SCALP: normocephalic Neck/C-Spine: COMMON NORMALS: no JVD OTHER: Large neck circumference Lymph: LYMPHATIC: no lymphadenopathy noted Chest: OTHER: Obese abdomen Resp: COMMON NORMALS: normal respiratory effort EFFORT & INSPECTION: Yes able to speak in complete sentences, Yes tachypneic and Yes retractions AUSCULTATION: wheezes and breath sounds absent Cardio: COMMON NORMALS: no JVD, regular rate, regular rhythm, S1 normal heart sound present and S2 normal heart sound present RATE: regular rate RHYTHM: regular rhythm HEART SOUNDS: S1 normal heart sound present and S2 normal heart sound present GI: COMMON NORMALS: Normal to inspection, nondistended, normoactive bowel sounds present, Soft to palpation, non-tender, No hepatosplenomegaly present, no masses and no bruits PALPATION: Yes Soft to palpation and Yes No hepatosplenomegaly present Extremity: COMMON NORMALS: capillary refill normal, no clubbing, cyanosis or edema, no calf tenderness and no pedal edema Neuro: COMMON NORMALS: patient oriented x3 Psych: COMMON NORMALS: mental status grossly normal Urinary Catheter Management^: Blandon: Cath Placed During This Visit: yes Reason for Continuing Indwelling Catheter: Accurate Measurement of Urinary Output in Critically Ill Patients Urinary Catheter Date of Insertion: 10/20/19 Urinary Catheter Time of Insertion: 10:45 Data : 10/19/19 19:55 10/19/19 19:55 Micro: Microbiology 10/20/19 06:15 Legionella Urinary Antigen - Final Urine,Voided A&P Assessment and plan (1) Acute respiratory failure with hypoxia: -Likely secondary to COVID-19 and or bilateral pneumonias and/or acute respiratory distress syndrome -Patient is DNR/DNI, does not want heroic interventions -I am waiting on COVID-19 testing, will be back later on today, even if negative will do repeat testing -His CT of the chest does show diffuse hazy groundglass infiltrates throughout both lungs, elevated d-dimer, elevated CRP, liver function, elevated ESR -Has risk factors of CAD, CHF, CKD -Has exposure history -Patient deteriorated this morning requiring up to 7 L, intermittent episodes of shortness of breath and respiratory distress -At that point I decided to place patient on broad-spectrum antibiotics vancomycin Zosyn, azithromycin for concerns for bilateral pneumonia and acute respiratory distress syndrome -Lasix 40 mg twice daily, although no signs of overt fluid overload, will try to keep the patient as dry as possible -Blandon catheter in place -[address] -Once COVID testing comes back we will place patient by ICU, will consider consulting pulmonary -Start Decadron 6 mg once daily - hold off on remdesvir until test comes back -Okay with BiPAP as needed -Continue low-dose sliding scale With fatigue/generalized weakness. Has been doing well on 2 L nasal cannula, however, is needing increase up to 6 L, saturating 92%. D-dimer was checked, and is high, initially there was consideration of possible PE given recent travel, however, he is on Eliquis, and states has not missed any doses. Received a dose of Lovenox in ER, however, may continue Eliquis. He has noted history of CHF, however, on review of last echocardiogram, this was done in 2017, with normal ejection fraction, but with pulmonary hypertension. He has no chest pain. Troponin minimally elevated. A. fib rhythm on EKG. Pneumonia, community-acquired, is considered given his fever, hypoxia. He does not have significant cough. There are diffuse opacities, worse on the right. He reportedly subjectively was not considerably short of breath. He does state that he has been social distancing, and wearing a mask while in public. He does live with his child and grandchild at home. Recently his travel to [place], although does state that symptoms were starting already on the way there. Will be assessed for COVID-19, requested also rapid flu. Request for sputum culture, bacterial antigens. For now empirically will cover with Levaquin. However, as discussed with him concern is higher for viral pneumonia. Maintain in isolation at this time. Prescription of goals of care and CODE STATUS with him, he states he would not want CPR in case of cardiopulmonary arrest, and giving it consideration, states would not want even temporary intubation in case of worsening respiratory status. He would be okay with receiving CPAP or BiPAP support if necessary. Status: Acute (2) Community acquired pneumonia: As above. Status: Acute (3) Acute kidney injury superimposed on CKD: Creatinine 2.2. Stage III chronic disease. Baseline creatinine appears around 2. Monitor renal function, urine output. Hold lisinopril for now. Status: Acute (4) Transaminitis: Mild transaminitis. Will hold statin for now. Recheck. Consider that he is also on amiodarone if there is no improvement. Status: Acute (5) Elevated erythrocyte sedimentation rate: Unclear reason obvious elevation at this time. Will request for CRP. Status: Acute (6) Elevated CK: Suspect may be mild rhabdomyolysis secondary to statin. Hold statin for now. Recheck. Monitor renal function. Status: Acute (7) Hypoglycemia: Hold lantus for now. Hold novolog when she takes 24 units of in the morning and afternoon. Blood glucose was as low as 60. Please reassess, resume insulin therapy when appropriate. Status: Acute Additional A&P Information History of CHF: Reported. He takes Lasix at home. Will transition to IV 40 mg twice a day. Avoid fluid overload. HTN HLD CAD Diabetes Other chronic problems Attestations Medical Necessity Statement*: Patient requires continued hospitalization due to acute respiratory failure with hypoxia, secondary to COVID-19, bilateral pneumonias, acute respiratory distress Coding Level of Care Code Acute General Internist for [facility] Fwd Diagnoses Acute respiratory failure with hypoxia J96.01 Community acquired pneumonia J18.9 Acute kidney injury superimposed on CKD N17.9; N18.9 Transaminitis R74.0 Elevated erythrocyte sedimentation rate R70.0 Elevated CK R74.8 Hypoglycemia E16.2
[2019-10-20] MEDS: dexamethasone 4 mg/mL INJ 6 MG IVP (15:33)
[2019-10-20] MEDS: acetaminophen 325 mg Tablet 650 MG PO (15:33)
[2019-10-20] MEDS: albuterol 8 gm MDI 4 PUFF INHALATION (15:39)
[2019-10-20 16:08] LABS: Glucose Point of Care 119 mg/dL (70-110)
[2019-10-20] MEDS: potassium chloride ER 10 mEq Tablet 40 MEQ PO (19:02)
--- NOTE | 2019-10-20 21:35 | PC.NURSE ---
Pt transferred from CSU to VICU after receiving positive COVID19 test. Transferred to new room via bed. Mask and gowns in place. Placed in negative pressure room. Pt remains on 10L O2, tachypnea present but improving. Lungs diminshed and tight, expiraotry wheezes present in right upper lobe, and fine crackles heard in lower bases. Afib present on the monitor with controlled rate. No fever at this time. Pt has a slight cough, but not productive. Blandon catheter in place. Denies any pain at this time. Per pt's request notified daughter of patient needing a kitchenwhere maker and some other items he wishes to have from home. Also updated on current status and different room number. All questions answered. Dtr to bring POA paperwork tomorrow along with belongings for patient. Notified from pharmacy that medications due at will be brought as soon as possible, but due to other circumstances the medications will not be brought to the unit for awhile. Verbalized understanding and will administer once received.
[2019-10-20] MEDS: atorvastatin 40 mg Tablet 80 MG PO (22:13)
[2019-10-20] MEDS: pantoprazole 40 mg SDV IVP (22:13)
[2019-10-21] VITALS (50 sets, daily range): BP systolic 94–133; BP diastolic 52–81; PULSE 60–81; RESP 17–32; TEMP 36.6–37.4; O2SAT 89–96
--- NOTE | 2019-10-21 02:45 | PC.NURSE ---
spoke with Dr. Briones via telephone regarding pt. Stated to place pt in prone position and to place on high flow at 40 L 60% per Pulomonogy recommendations. No changes in patient's condition during this shift. Placing on high flow just because of recommendations. At 0200, RT at bedside and patient assisted into prone position with minimal assist. Pt tolerated well. Lung sounds with fine crackles with better aeration to BLL. No wheezes heard at this time time on posterior chest. Pulse ox remained 89-94% on 12L nasal cannula. Pt assisted back to semi fowlers. No complaints of pain. RR increased with activity. Pt with dry cough. Room change at this time due to lack of O2 equipment for high flow. RT placing patient on 40L 60% at this time per physician orders. pulse ox at 96%. No further needs at this time.
[2019-10-21] MEDS: FUROsemide 10 mg/mL SDV 4mL 40 MG IVP (03:37)
[2019-10-21 06:36] LABS: Hematocrit 42.9 % (42.0-52.0); Hemoglobin 13.6 g/dL (11.7-16.6); Lymphocytes # 0.8 10^3/uL (0.8-4.8); Lymphocytes % 8.7 %; Mean Corpuscular HGB Conc 31.7 g/dL (30.0-36.0); Mean Corpuscular Hemoglobin 30.1 pg (28.0-34.0); Mean Corpuscular Volume 94.9 fL (80-94); Mean Platelet Volume 10.6 fL (7.4-10.4); Monocytes # 0.5 10^3/uL (0.2-0.9); Monocytes % 5.2 %; Neutrophils # 7.37 10^3/uL (1.8-7.7); Neutrophils % 85.6 %; Nucleated Red Blood Cells % 0 %; Platelet Count 172 10^3/cmm (130-400); Red Blood Count 4.52 10^6/uL (4.1-5.3); Red Cell Distribution Width 12.5 % (12.1-15.1); White Blood Count 8.6 10^3/uL (4.0-10.0)
[2019-10-21 06:48] LABS: INR 1.87 (0.8-1.2)
[2019-10-21 06:49] LABS: Fibrinogen 832 mg/dL (184-529)
[2019-10-21 06:51] LABS: D Dimer 0.62 ug/mIFEU (0-0.59)
[2019-10-21 06:57] LABS: C Reactive Protein 180.4 mg/L (0.0-4.9); Magnesium 2.3 mg/dL (1.7-2.3); Phosphorus 3.5 mg/dL (2.5-4.5)
[2019-10-21 06:58] LABS: Lactic Sepsis W/Reflex 2.2 mmol/L (0.5-2.2)
[2019-10-21 06:59] LABS: Alanine Aminotransferase 35 U/L (0-41); Albumin Level 2.7 g/dL (3.5-5.2); Alkaline Phosphatase 48 IU/L (40-130); Anion Gap 16.5 (5-19); Aspartate Amino Transferase 55 U/L (0-40); Blood Urea Nitrogen 36 mg/dL (8-23); Calcium 8.3 mg/dL (8.5-10.5); Carbon Dioxide 26 mmol/L (22-29); Chloride 99 mmol/L (98-107); Globulin 3.3 g/dL (1.3-4.6); Glucose 366 mg/dL (65-115); Osmolality Calculated 296 mOsm/kg (285-295); Potassium 4.5 mmol/L (3.5-5.1); Sodium 137 mmol/L (136-145); Total Bilirubin 0.7 mg/dL (0.15-1.2)
[2019-10-21 07:00] LABS: Troponin T (5th) Once 24 ng/L (0-15)
--- NOTE | 2019-10-21 07:00 | XRR_ITS ---
PROCEDURE INFORMATION: Exam: XR Chest, 1 View Exam date and time: 10/21/2019 7:44 AM Age: 73 years old Clinical indication: Shortness of breath; Additional info: SOB, covid-19 TECHNIQUE: Imaging protocol: XR of the chest Views: 1 view. COMPARISON: CR XR chest 1V portable [id number] 10/19/2019 8:15 PM FINDINGS: Lungs: Patchy interstitial and alveolar airspace disease most pronounced within the right upper lobe and right mid lung and to a lesser degree on the left. Findings consistent with an infectious process and consistent with the given history. Pleural space: Unremarkable. No pleural effusion. No pneumothorax. Heart/Mediastinum: Unremarkable. No cardiomegaly. Bones/joints: Unremarkable. XR/XR chest 1V portable [id number] IMPRESSION: Patchy interstitial and alveolar airspace disease most pronounced within the right upper lobe and right mid lung and to a lesser degree on the left. Findings consistent with an infectious process and consistent with the given history.
[2019-10-21 07:08] LABS: NT Pro B Type Natriuretic Pept 743 pg/mL (0-125); Procalcitonin 0.32 ng/mL (0-0.5)
[2019-10-21 07:19] LABS: Lactate Dehydrogenase 467 U/L (135-225)
[2019-10-21 07:21] LABS: Creatine Phosphokinase 712 U/L (39-308)
[2019-10-21 07:43] LABS: Ferritin 1280 ng/mL (30-400)
[2019-10-21 08:15] LABS: Reflex Lactate Order REFLEX LACTIC ORDERD
[2019-10-21] MEDS: apixaban 5 mg Tablet PO ×2 (09:23→17:35)
[2019-10-21] MEDS: amiodarone 200 mg Tablet PO (09:23)
[2019-10-21] MEDS: azithromycin 500 MG in sodium chloride 0.9% 250 ML 250 MG IV (09:24)
[2019-10-21] MEDS: carvedilol 6.25 mg Tablet PO (09:24)
[2019-10-21] MEDS: atorvastatin 40 mg Tablet 80 MG PO (09:24)
[2019-10-21] MEDS: dexamethasone 4 mg/mL INJ 6 MG IVP (09:24)
[2019-10-21] MEDS: potassium chloride ER 10 mEq Tablet 40 MEQ PO (09:24)
[2019-10-21] MEDS: pantoprazole 40 mg SDV IVP (09:24)
[2019-10-21] MEDS: lisinopril 20 mg Tablet PO (09:24)
[2019-10-21] MEDS: clopidogrel 75 mg Tablet PO (10:07)
[2019-10-21 10:25] LABS: ABG PH Result 7.42 (7.35-7.45); Alveolar-Arterial Oxygen Gradi 301.2 mmHg (5-10); Arterial Blood Gas Hematocrit 42.3 % (42-52); Base Excess ABG 0.2 mmol/L (-2.0-2.0); Blood Gas Allen Test Pos; Blood Gas Operator Identificat glc; Blood Gas Sample Site Radial, left; Blood Gas Sample Type Arterial; Carboxyhemoglobin 0.5 %THgb (0.4-20.1); HCO3 ABG 24.6 mmol/L (22-26); HGB O2 Sat 93.3 % (95-100); Ionized Calcium Level - ABG 1.1 mmol/L (1.1-1.4); Methemoglobin 0.9 % (0.4-1.5); Oxygen Device VENTURI; Oxygen Saturation ABG 94.5; PO2 ABG 70.1 mmHg (80.0-100.0); Potassium Level - ABG 4.2 mmol/L (3.5-5.0); Total Hemoglobin 13.8 g/dL (14-18)
[2019-10-21 12:04] LABS: Lactic Acid level (Lactate) 2.6 mmol/L (0.5-2.2)
[2019-10-21] MEDS: piperacillin-tazobactam 3.375 GM in sodium chloride 0.9% (plus) 50 ML IV ×2 (12:27→18:14)
[2019-10-21] MEDS: insulin glargine 100 units/1 mL 40 UNIT SUBCUT ×2 (12:28→17:36)
--- NOTE | 2019-10-21 14:21 | P.PN_ITS ---
Subjective Subjective: Interval history: No acute events overnight. In last 24 hours patient was moved to the MICU after COVID-19 came back positive. Patient was seen multiple times today both through tele-visit and personally. 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 He sat in chair for around 1 hour after which he became tired and he desaturated to around 86% and his FiO2 had to be bumped up to 70%. Patient spoke to me for around 5 minutes in full sentence without getting out of breath, with occasional cough. Denies of having any chest pain, nausea, vomiting, headache, dizziness, palpitations. He has had around 3-4 episodes of diarrhea which have been nonbloody as per the RN taking care of the patient. Given his severity of COVID-19 possible treatment plans were discussed with the patient including Remdesevir and convalescent plasma. It is also told to the patient for now we have 1 day dose of Remedesevir and we are trying to get more. Potential transfer was discussed with the patient to a higher center in view of unavailability of the medications. Patient stated he would not want to be transferred. Given discussed that without medication he might . Patient states he would want to think about it. Patient remains a DNR/DNI. Patient's plan of care and condition was updated to the patient's D POA his daughter Ms. Lance. All the questions were answered. As per her patient and family including Ms. Lance her daughter and were last in close contact on October 17 when they were traveling back from [place] in the same car. For now the family is doing fine. I have advised them that as per the CDC guidelines this should self quarantine themselves and avoid any large gatherings and to be tested if they have any fevers. I also explained to them that somebody from health department should be getting in touch with them soon. Vitals/I&O/Wt Last Vital Signs Temp 99.3 F 10/21/19 13:01 Pulse 68 10/21/19 13:00 Resp 23 H 10/21/19 13:00 BP 104/52 10/21/19 13:00 Pulse Ox 96 10/21/19 13:00 10/20/19 10/21/19 10/21/19 22:59 06:59 14:59 Intake Total 150 / 1300 390 / 1690 840 / 840 Output Total 1180 / 1630 1400 / 3030 750 / 750 Balance -1030 / -330 -1010 / -1340 90 / 90 Weight last 48 hrs Weight 104.598 kg Weight 107.048 kg Weight 107.048 kg Physical Exam Narrative: EXAM NARRATIVE: General: No acute distress, AO x3, mildly tachypneic, looking tired HEENT: PERRLA, pupils bilaterally equal and reactive Chest: Bronchial breath sounds on most of the lung castro anterior more than posterior, coarse crackles present in right upper and middle zone, equal air entry bilaterally, poor inspiration effort. CVS: S1-S2 regular, no murmurs, tachycardia, no gallops, no rubs Abdomen: Soft, nontender, no organomegaly, bowel sounds present Neuro: No focal deficits, no facial deformity, AO x3, power 5/5 in all limbs Urinary Catheter Management^: Blandon: Cath Placed During This Visit: yes Reason for Continuing Indwelling Catheter: Accurate Measurement of Urinary Output in Critically Ill Patients Urinary Catheter Date of Insertion: 10/20/19 Urinary Catheter Time of Insertion: 10:45 Data : 10/21/19 06:15 10/21/19 06:15 Micro: Microbiology 10/21/19 12:45 Blood Culture - Preliminary Blood SPECIMEN COLLECTED 10/21/19 12:30 Blood Culture - Preliminary Blood SPECIMEN COLLECTED A&P Assessment and plan (1) COVID-19: Status: Acute (2) ARDS (adult respiratory distress syndrome): Status: Acute (3) Acute respiratory failure with hypoxia: Status: Acute (4) Pulmonary hypertension: Status: Acute (5) Community acquired pneumonia: As above. Status: Acute (6) Atrial fibrillation: Status: Acute Qualifiers: Atrial fibrillation type: longstanding persistent Qualified Code(s): I48.11 - Longstanding persistent atrial fibrillation (7) Acute kidney injury superimposed on CKD: Stage III chronic disease. Baseline creatinine appears around 2. Monitor renal function, urine output. Hold lisinopril for now. 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 transplanted heart: [place] heart Qualified Code(s): I25.10 - Atherosclerotic heart disease of [place] coronary artery without angina pectoris (10) Hypertension: Status: Acute Qualifiers: Hypertension type: essential hypertension Qualified Code(s): I10 - Essential (primary) hypertension (11) Hyperlipidemia: Status: Acute Qualifiers: Hyperlipidemia type: mixed hyperlipidemia Qualified Code(s): E78.2 - Mixed hyperlipidemia (12) CHF (congestive heart failure): Status: Acute Qualifiers: Heart failure chronicity: chronic Heart failure type: diastolic Qualified Code(s): I50.32 - Chronic diastolic (congestive) heart failure (13) Elevated erythrocyte sedimentation rate: Unclear reason obvious elevation at this time. Will request for CRP. Status: Acute (14) Elevated CK: Suspect may be mild rhabdomyolysis secondary to statin. Hold statin for now. Recheck. Monitor renal function. Status: Acute (15) Transaminitis: Mild transaminitis. Will hold statin for now. Recheck. Consider that he is also on amiodarone if there is no improvement. Status: Acute Additional A&P Information ARDS: COVID-19: Acute hypoxic respiratory failure: Continue with contact and droplet precautions. Patient got first dose of Remdesevir yesterday. Day 2 of dose today. Will most likely try to continue for 5 to 7 days. We will confirm with pharmacy if more medication could be made available. Continue to follow inflammatory markers including ESR, CRP, ferritin, LDH, d- dimer daily. Daily ABGs to monitor for ARDS along with daily chest x-rays. Spiriva, Advair. Tessalon Perles as needed. Continue with guidelines guided Decadron 6 mg IV daily. For possible superimposed bacterial infection we will continue with vancomycin and Zosyn. Check MRSA swab, sputum culture, bacterial antigen. Day 3/7 of treatment. Patient is DNR/DNI. Discussed as above regarding potential transfer to higher center if patient have denied at present. Will discuss again if not able to get the medication. Hypertension: Patient is on lisinopril, Coreg, amlodipine-. Goal blood pressure less than 140/90 mmHg. Keep mean arterial pressure over 65 mmHg. For now we will hold off on lisinopril. We will switch Coreg to IV Lopressor as needed to avoid hypotension. Continue amlodipine at current dose. History of CAD: No chest pain at present. Continue with home dose of Plavix and statin. Atrial fibrillation: Rate controlled at present. Continue with Eliquis at current dose. It would also help with potential thromboembolic/thrombophilic response of COVID-19. Change Coreg to Lopressor as discussed above. History of CHF: Repeat echocardiogram results appreciated. Normal EF with mild grade 1 diastolic dysfunction and no pulmonary hypertension. At home patient takes Lasix 40 mg twice daily. Currently patient is on 40 mg IV twice daily. Stop IV Lasix at present and switch over to oral Lasix. Diabetes mellitus: Difficult to control blood sugars at present because of IV Decadron. Blood work not consistent with DKA. At home patient takes Levemir 72 units at bedtime. Switch to 40 units twice daily. Switch to high-dose protocol. Start patient on consistent cardiac diet. Eliquis will help with DVT prophylaxis as well. 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 transplanted heart: [place] heart Hypertension I10 Hypertension type: essential hypertension Hyperlipidemia E78.2 Hyperlipidemia type: mixed hyperlipidemia CHF (congestive heart failure) I50.32 Heart failure chronicity: chronic Heart failure type: diastolic Elevated erythrocyte sedimentation rate R70.0 Elevated CK R74.8 Transaminitis R74.0
[2019-10-21] MEDS: FUROsemide 40 mg Tablet PO (17:35)
[2019-10-21 19:40] LABS: Glucose Point of Care 380 mg/dL (70-110)
[2019-10-21 19:40] LABS: Glucose Point of Care 453 mg/dL (70-110)
[2019-10-21 19:40] LABS: Glucose Point of Care 536 mg/dL (70-110)
[2019-10-21 19:40] LABS: Glucose Point of Care 148 mg/dL (70-110)
[2019-10-22] VITALS (28 sets, daily range): BP systolic 103–132; BP diastolic 59–87; PULSE 57–85; RESP 15–35; TEMP 36.4–36.7; O2SAT 89–96; BMI 34.0
[2019-10-22] MEDS: piperacillin-tazobactam 3.375 GM in sodium chloride 0.9% (plus) 50 ML IV ×3 (01:59→16:55)
[2019-10-22 05:18] LABS: Basophils % 0.1 %; Hemoglobin 13.3 g/dL (11.7-16.6); Lymphocytes # 0.8 10^3/uL (0.8-4.8); Lymphocytes % 6.3 %; Mean Corpuscular HGB Conc 32.4 g/dL (30.0-36.0); Mean Corpuscular Hemoglobin 30.6 pg (28.0-34.0); Mean Corpuscular Volume 94.3 fL (80-94); Mean Platelet Volume 10.9 fL (7.4-10.4); Monocytes # 0.7 10^3/uL (0.2-0.9); Monocytes % 5.9 %; Neutrophils # 10.72 10^3/uL (1.8-7.7); Neutrophils % 87.1 %; Nucleated Red Blood Cells % 0 %; Platelet Count 201 10^3/cmm (130-400); Red Blood Count 4.35 10^6/uL (4.1-5.3); Red Cell Distribution Width 12.6 % (12.1-15.1); White Blood Count 12.3 10^3/uL (4.0-10.0)
[2019-10-22 05:40] LABS: C Reactive Protein 124.6 mg/L (0.0-4.9)
[2019-10-22 05:41] LABS: Alanine Aminotransferase 38 U/L (0-41); Albumin Level 2.6 g/dL (3.5-5.2); Alkaline Phosphatase 50 IU/L (40-130); Anion Gap 15.2 (5-19); Aspartate Amino Transferase 52 U/L (0-40); Blood Urea Nitrogen 40 mg/dL (8-23); Calcium 8.2 mg/dL (8.5-10.5); Carbon Dioxide 26 mmol/L (22-29); Chloride 100 mmol/L (98-107); Globulin 3.5 g/dL (1.3-4.6); Glucose 384 mg/dL (65-115); Osmolality Calculated 298 mOsm/kg (285-295); Potassium 4.2 mmol/L (3.5-5.1); Sodium 137 mmol/L (136-145); Total Bilirubin 0.6 mg/dL (0.15-1.2); Total Protein 6.1 g/dL (6.6-8.7)
[2019-10-22 05:44] LABS: NT Pro B Type Natriuretic Pept 468 pg/mL (0-125); Procalcitonin 0.29 ng/mL (0-0.5)
[2019-10-22 05:47] LABS: ABG PCO2 41.2 mmHg (35-45); ABG PH Result 7.43 (7.35-7.45); Arterial Blood Gas Hematocrit 42.8 % (42-52); Base Excess ABG 2.4 mmol/L (-2.0-2.0); Blood Gas Allen Test Pos; Blood Gas Sample Site Radial, right; Blood Gas Sample Type Arterial; Fractionated Inspired Oxygen 0.7 %; Oxygen Device HAG
[2019-10-22 05:55] LABS: Lactate Dehydrogenase 457 U/L (135-225)
--- NOTE | 2019-10-22 06:00 | XR_ITS ---
WS: [id number] CHEST XRAY TECHNIQUE: Portable chest. CLINICAL INFORMATION: covid 19 COMPARISON: None. FINDINGS: Heart: Normal cardiac silhouette. Lungs: Bilateral patchy pulmonary infiltrates improved since October 21, 20192017. No focal pneumonia. No consolidation. Bones: Normal visualized bony structures. XR/XR chest 1V portable [id number] IMPRESSION: Bilateral patchy diffuse pulmonary infiltrates improved since October 21, 2019
[2019-10-22 06:07] LABS: D Dimer 0.51 ug/mIFEU (0-0.59)
[2019-10-22 06:30] LABS: Ferritin 1475 ng/mL (30-400)
[2019-10-22 07:37] LABS: Magnesium 2.6 mg/dL (1.7-2.3); Phosphorus 3.1 mg/dL (2.5-4.5)
[2019-10-22 07:39] LABS: Creatine Phosphokinase 711 U/L (39-308)
[2019-10-22 07:46] LABS: Glucose Point of Care 501 mg/dL (70-110)
[2019-10-22 08:13] LABS: Glucose Point of Care 398 mg/dL (70-110)
[2019-10-22] MEDS: FUROsemide 40 mg Tablet PO ×2 (08:27→16:26)
[2019-10-22] MEDS: amiodarone 200 mg Tablet PO (08:28)
[2019-10-22] MEDS: apixaban 5 mg Tablet PO ×2 (08:28→16:27)
[2019-10-22] MEDS: atorvastatin 40 mg Tablet 80 MG PO (08:29)
[2019-10-22] MEDS: carvedilol 6.25 mg Tablet PO ×2 (08:29→16:27)
[2019-10-22] MEDS: dexamethasone 4 mg/mL INJ 6 MG IVP (08:30)
[2019-10-22] MEDS: clopidogrel 75 mg Tablet PO (08:30)
[2019-10-22] MEDS: pantoprazole 40 mg SDV IVP (08:31)
[2019-10-22] MEDS: insulin glargine 100 units/1 mL 40 UNIT SUBCUT (08:31)
[2019-10-22] MEDS: azithromycin 500 MG in sodium chloride 0.9% 250 ML 250 MG IV (09:00)
--- NOTE | 2019-10-22 09:19 | P.PN_ITS ---
Subjective Subjective: Interval history: No acute events overnight. Patient was seen multiple times in the day both through tele-visit and in person. During the day patient was weaned down from high flow lower to 42% 35 L while he was saturating up to 90%. He sat for around 3 to 4 hours in chair today. Patient states he feels more strength in his legs when he standing up. By the end of sitting for so long he got tired and at that time we had to bump up his oxygen supplementation to 60% 40 L. Patient states he is feeling a lot more energetic. Denies of having any nausea, vomiting, headache, dizziness, palpitations. He has had overall 3 episodes of loose bowel movements during the day. Vitals and labs noted. Ins and out noted. Vitals/I&O/Wt Last Vital Signs Temp 98.0 F 10/21/19 15:00 Pulse 64 10/22/19 04:00 Resp 21 H 10/22/19 04:00 BP 120/72 10/22/19 04:00 Pulse Ox 92 10/22/19 04:00 10/21/19 10/22/19 10/22/19 22:59 06:59 14:59 Intake Total 920 / 2260 50 / 2310 Output Total 1600 / 2350 800 / 3150 Balance -680 / -90 -750 / -840 Weight last 48 hrs Weight 104.598 kg Weight 104.598 kg Physical Exam Narrative: EXAM NARRATIVE: General: No acute distress, AO x3, mildly tachypneic, looking tired but better than yesterday. HEENT: PERRLA, pupils bilaterally equal and reactive Chest: Bronchial breath sounds on most of the lung castro anterior more than posterior, coarse crackles present in right upper and middle zone, equal air entry bilaterally, poor inspiration effort. CVS: S1-S2 regular, no murmurs, tachycardia, no gallops, no rubs Abdomen: Soft, nontender, no organomegaly, bowel sounds present Neuro: No focal deficits, no facial deformity, AO x3, power 5/5 in all limbs Urinary Catheter Management^: Blandon: Cath Placed During This Visit: yes Reason for Continuing Indwelling Catheter: Accurate Measurement of Urinary Output in Critically Ill Patients Urinary Catheter Date of Insertion: 10/20/19 Urinary Catheter Time of Insertion: 10:45 Data : 10/22/19 05:01 10/22/19 05:01 Micro: Microbiology 10/21/19 12:35 Bacterial Antigens - Final Urine Suprapubic 10/21/19 12:45 Blood Culture - Preliminary Blood SPECIMEN COLLECTED 10/21/19 12:30 Blood Culture - Preliminary Blood SPECIMEN COLLECTED A&P Assessment and plan (1) COVID-19: Status: Acute (2) ARDS (adult respiratory distress syndrome): Status: Acute (3) Acute respiratory failure with hypoxia: Status: Acute (4) Pulmonary hypertension: Status: Acute (5) Community acquired pneumonia: As above. Status: Acute (6) Atrial fibrillation: Status: Acute Qualifiers: Atrial fibrillation type: longstanding persistent Qualified Code(s): I48.11 - Longstanding persistent atrial fibrillation (7) Acute kidney injury superimposed on CKD: Stage III chronic disease. Baseline creatinine appears around 2. Monitor renal function, urine output. Hold lisinopril for now. 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 transplanted heart: [place] heart Associated angina: without angina Qualified Code(s): I25.10 - Atherosclerotic heart disease of [place] coronary artery without angina pectoris (10) Hypertension: Status: Acute Qualifiers: Hypertension type: essential hypertension Qualified Code(s): I10 - Essential (primary) hypertension (11) Hyperlipidemia: Status: Acute Qualifiers: Hyperlipidemia type: mixed hyperlipidemia Qualified Code(s): E78.2 - Mixed hyperlipidemia (12) CHF (congestive heart failure): Status: Acute Qualifiers: Heart failure type: diastolic Heart failure chronicity: chronic Qualified Code(s): I50.32 - Chronic diastolic (congestive) heart failure (13) Elevated erythrocyte sedimentation rate: Unclear reason obvious elevation at this time. Will request for CRP. Status: Acute (14) Elevated CK: Suspect may be mild rhabdomyolysis secondary to statin. Hold statin for now. Recheck. Monitor renal function. Status: Acute (15) Transaminitis: Mild transaminitis. Will hold statin for now. Recheck. Consider that he is also on amiodarone if there is no improvement. Status: Acute Additional A&P Information ARDS: COVID-19: Acute hypoxic respiratory failure: Continue with contact and droplet precautions. Patient got first dose of Remdesevir yesterday. Day 3 of dose today. Will most likely try to continue for 5 to 7 days. We will confirm with pharmacy if more medication could be made available. Continue to follow inflammatory markers including ESR, CRP, ferritin, LDH, d- dimer daily. D-dimer is down to normal today, LDH is stable and ferritin is mildly elevated to 1475. Daily ABGs to monitor for ARDS along with daily chest x-rays. Spiriva, Advair. Tessalon Perles as needed. Continue with guidelines guided Decadron 6 mg IV daily. For possible superimposed bacterial infection we will continue with vancomycin and Zosyn. Check MRSA swab, sputum culture, bacterial antigen. Day 4/7 of treatment. Patient is DNR/DNI. Discussed as above regarding potential transfer to higher center if patient have denied at present. Will discuss again if not able to get the medication. Hypertension: Patient is on lisinopril, Coreg, amlodipine. Goal blood pressure less than 140/90 mmHg. Keep mean arterial pressure over 65 mmHg. Blood pressures better today. We will continue to hold off on amlodipine and lisinopril. Continue with home dose of Coreg. History of CAD: No chest pain at present. Continue with home dose of Plavix and statin. CKD: Baseline creatinine around 2. Creatinine better today. 1.9 today. Electrolytes stable. No sign of metabolic acidosis. Atrial fibrillation: Rate controlled at present. Continue with Eliquis at current dose. It would also help with potential thromboembolic/thrombophilic response of COVID-19. Continue with home dose of Coreg. History of CHF: Repeat echocardiogram results appreciated. Normal EF with mild grade 1 diastolic dysfunction and no pulmonary hypertension. Continue with home dose of Lasix 40 mg twice daily. Patient is overall 2 L negative. Diabetes mellitus: Difficult to control blood sugars at present because of IV Decadron. Blood work not consistent with DKA. At home patient takes Levemir 72 units at bedtime. Blood sugar still little elevated. Increase Levemir to 60 units twice daily. Continue with insulin sliding scale at high-dose protocol. Continue with carb consistent cardiac diet. Eliquis will help with DVT prophylaxis as well. DNR/DNI Attestations Medical Necessity Statement*: ARDS, COVID-19 Critical Care Time: ARDS, management of high flow, insulin. 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 Diagnoses COVID-19 U07.1 ARDS (adult respiratory distress syndrome) J80 Acute respiratory failure with hypoxia J96.01 Pulmonary hypertension I27.20 Community acquired pneumonia J18.9 Atrial fibrillation I48.11 Atrial fibrillation type: longstanding persistent Acute kidney injury superimposed on CKD N17.9; N18.9 Diabetes E11.65; Z79.4 Diabetes mellitus type: type 2 Diabetes mellitus hims clerk insulin use: with group home use Diabetes mellitus complication status: with hyperglycemia CAD (coronary artery disease) I25.10 Coronary Disease-Associated Artery/Lesion type: [place] artery [place] vs. transplanted heart: [place] heart Associated angina: without angina Hypertension I10 Hypertension type: essential hypertension Hyperlipidemia E78.2 Hyperlipidemia type: mixed hyperlipidemia CHF (congestive heart failure) I50.32 Heart failure type: diastolic Heart failure chronicity: chronic Elevated erythrocyte sedimentation rate R70.0 Elevated CK R74.8 Transaminitis R74.0
--- NOTE | 2019-10-22 09:35 | PC.SOCIAL ---
Pg 2 IMM Explained to pt Pg 2 IMM, via phone. Pt verbally understands. No questions voiced. Copy provided to nurse to give to pt. Signed, dated & timed a copy to be placed in chart.
[2019-10-22 11:35] LABS: Glucose Point of Care 472 mg/dL (70-110)
[2019-10-22] MEDS: benzonatate 100 mg Capsule PO (11:57)
--- NOTE | 2019-10-22 13:50 | PC.NURSE ---
PATIENT IS ALERT AND ORIENTATED, SLIGHT KNIK. AUDIBLE WHEEZES CAN BE HEARD FROM BEDSIDE. BLOOD SUGARS ARE HIGH AND HAVE REQUIRED HIGH DOSES, DR MASSEY ADJUSTED HIS LANTUS. HE WAS ABLE TO PRODUCE A SPUTUM SAMPLE. HE HAS HAD 3 LOOSE STOOLS SINCE 0700. HE EATS OVER 50 % OF HIS MEALS. HE HAS BEEN UP IN THE CHAIR SINCE 0830 AND USING HIS IS. SPIRIVA AND ADVAIR ARE IN THE ROOM AND WERE ADMINISTERED BUT I SEE NO PLACE FOR THEM ON THE MAR TO CHART AGAINST. DR MASSEY SPECIFICALLY WANTED THEM DOSED SO I WILL MAKE SURE THEY ARE ON THE MAR. PATIENT SHAVED A BIT AND BRUSHED HIS TEETH . HIS LEFT IV SITE WAS LEAKING A LITTE BLOOD AT THE INSERTION POINT SO A NEW SITE WAS PLACED IN THE RIGHT AC.
[2019-10-22 16:24] LABS: Glucose Point of Care 395 mg/dL (70-110)
[2019-10-22] MEDS: insulin glargine 100 units/1 mL 60 UNIT SUBCUT (16:30)
[2019-10-22] MEDS: insulin glargine 100 units/1 mL 20 UNIT SUBCUT (16:40)
--- NOTE | 2019-10-22 22:02 | P.CONIM_ITS ---
Providers/Reason For Consult Consulting Physican/Specialty*: Cachorro Mcgill MD/Critical Care consult Reason for Consult*: Acute respiratory failure secondary to COVID Pneumonia Attending Physician: George Dobson MD Primary Care Provider: Nahum Mccarthy History of Present Illness History of Present Illness Vinh Potts is a 73 year old gentleman with past medical history of CAD, paroxysmal atrial fibrillation, chronic disease, DM 2, HLD, HTN, obesity reports about a 2-week history of progressive malaise, fatigue/generalized weakness being managed in VICU for acute hypoxemic respiratory failure secondary to COVID Pneumonia. Review of Systems Narrative: Normal except as mentioned in HPI Const: Denies: fever(s), body aches or malaise Eyes: Denies: change in vision or eye redness ENMT: Denies: throat pain, oral sores or ear or mastoid pain Card: Denies: chest pain, edema, pre-syncope or dyspnea on exertion Resp: Denies: dyspnea, productive cough, change in phlegm color or hemoptysis GI: Denies: abdominal pain, nausea, vomiting, diarrhea, constipation, hematochezia or melena : Denies: flank pain, difficulty urinating, urinary frequency or hematuria Musc: Denies: back pain, joint swelling or joint redness Skin/Breast: Denies: rash, sores or new lesions Neuro: Denies: headache(s), numbness in extremities, weakness in extremities, dizziness, confusion or seizure-like activity Endo: Denies: polyuria or polydipsia Darvin/Lymph: Denies: easy bleeding or purpura All/Imm: Denies: urticaria, throat swelling or tongue swelling Meds/Allergies Home Medications and Allergies Home Medications Medication Instructions Recorded Confirmed Last Taken Type amiodarone 200 mg tablet 200 mg PO DAILY 07/28/19 10/20/19 10/19/19 History apixaban 5 mg tablet 5 mg PO BID 07/28/19 10/20/19 10/19/19 History atorvastatin 80 mg tablet 80 mg PO DAILY 07/28/19 10/20/19 10/19/19 History calcitriol 0.25 mcg capsule 0.25 mcg PO DAILY 07/28/19 10/20/19 10/19/19 History carvedilol 12.5 mg tablet 12.5 mg PO BID 04/10/20/19 10/19/19 History cholecalciferol (vitamin D3) 50 50 mcg PO DAILY 07/28/19 10/20/19 10/19/19 History mcg (2,000 unit) capsule clopidogrel 75 mg tablet 75 mg PO DAILY 07/28/19 10/20/19 10/19/19 History doxazosin 4 mg tablet 4 mg PO DAILY 07/28/19 10/20/19 10/19/19 History furosemide 20 mg tablet 40 mg PO BID tab 07/28/19 10/20/19 10/19/19 History glipizide 5 mg tablet 2.5 mg PO BID tab 07/28/19 10/20/19 10/19/19 History insulin aspart U-100 100 unit/mL 24 unit SUBCUT DAILY ml 07/28/19 10/20/19 10/19/19 History (3 mL) subcutaneous pen insulin glargine 100 unit/mL 72 unit SUBCUT DAILY 07/28/19 10/20/19 10/19/19 History subcutaneous solution lisinopril 20 mg tablet 20 mg PO DAILY 07/28/19 10/20/19 10/19/19 History omega-3 fatty acids 1,000 mg 1,000 mg PO BID 07/28/19 10/20/19 10/19/19 History capsule potassium chloride 20 mEq 10 meq PO DAILY tab 07/28/19 10/20/19 10/19/19 History tablet,extended release(part/cryst) Allergies Allergy/AdvReac Type Severity Reaction Status Date / Time No Known Allergies Allergy Unverified 07/28/19 12:45 Current Medications Current Medications Generic Name Dose Route Start Last Admin Trade Name Freq PRN Reason Stop Dose Admin Acetaminophen 650 mg 10/20/19 02:52 10/20/19 15:33 Tylenol PO 650 mg Q6H PRN Administration Mild/Mod Pain Or Temp >/= 101 Albuterol Sulfate 4 puff 10/20/19 02:36 10/20/19 15:39 Ventolin INHALATION 4 puff Q4H.RESPIRATORY PRN Administration SHORTNESS OF BREATH Amiodarone HCl 200 mg 10/20/19 09:00 10/22/19 08:28 Cordarone PO 200 mg DAILY DELILAH Administration Apixaban 5 mg 10/20/19 09:00 10/22/19 16:27 Eliquis PO 5 mg BID DELILAH Administration Atorvastatin Calcium 80 mg 10/20/19 20:18 10/22/19 08:29 Lipitor PO 80 mg DAILY DELILAH Administration Benzonatate 100 mg 10/21/19 11:34 10/22/19 11:57 Tessalon Pearls PO 100 mg TID PRN Administration COUGH Carvedilol 6.25 mg 10/20/19 09:00 10/22/19 16:27 Coreg PO 6.25 mg BID DELILAH Administration Clopidogrel Bisulfate 75 mg 10/20/19 09:00 10/22/19 08:30 Plavix PO 75 mg DAILY DELILAH Administration Dexamethasone 6 mg 10/20/19 14:30 10/22/19 08:30 Decadron IVP 6 mg DAILY DELILAH Administration Furosemide 40 mg 10/21/19 16:00 10/22/19 16:26 Lasix PO 40 mg BID@08,16 DELILAH Administration Azithromycin 500 mg/ Sodium 250 mls @ 250 mls/hr 10/20/19 09:00 10/22/19 10:10 Chloride IV Infused Q24H DELILAH Infusion Protocol Vancomycin HCl 1,250 mg/ 250 mls @ 166.667 mls/hr 10/20/19 10:00 10/22/19 12:35 Sodium Chloride IV Infused Q24H DELILAH Infusion Protocol Piperacillin Sod/Tazobactam 50 mls @ 12.5 mls/hr 10/20/19 11:30 10/22/19 16:55 Sod 3.375 gm/ Sodium Chloride IV 12.5 mls/hr Q8H DELILAH Administration Protocol remdesivir (EUA) 100 mg/ 100 mls @ 100 mls/hr 10/21/19 20:30 10/22/19 21:26 Sodium Chloride IV 10/24/19 21:29 100 mls/hr Q24H DELILAH Administration Insulin Aspart 0 unit 10/20/19 08:00 10/22/19 16:28 Novolog SUBCUT 16 unit TIDWM DELILAH Administration Protocol Insulin Glargine 60 unit 10/22/19 18:00 10/22/19 16:30 Lantus SUBCUT 60 unit BID DELILAH Administration Lisinopril 20 mg 10/21/19 09:00 10/21/19 09:24 Prinivil PO 20 mg DAILY DELILAH Administration Pantoprazole Sodium 40 mg 10/20/19 20:18 10/22/19 08:31 Protonix IVP 40 mg DAILY DELILAH Administration PFSH Acute PFSH: Medical History (Updated 10/21/19 @ 14:24 by George Dobson MD) Atrial fibrillation CAD (coronary artery disease) CHF (congestive heart failure) With preserved ejection fraction- 60% on ECHO 10/2019 CKD (chronic kidney disease) Diabetes Hyperlipidemia Hypertension Obesity Renal stones Surgical History History of hernia repair Family History Other CAD (coronary artery disease) Cancer Diabetes Social History Smoking and tobacco status: never smoked Alcohol intake: never Substance/Drug Use: never Lives independently: Yes Household members: other Details: child and grandchild. Housing: Other Current occupational status: retired Vitals/I&O/Wt Last Vital Signs Temp 97.6 F 10/22/19 20:00 Pulse 65 10/22/19 20:00 Resp 20 H 10/22/19 20:00 BP 121/68 10/22/19 20:00 Pulse Ox 93 10/22/19 20:00 10/22/19 10/22/19 10/22/19 06:59 14:59 22:59 Intake Total 50 / 2310 1190 / 1190 500 / 1690 Output Total 800 / 3150 1750 / 1750 Balance -750 / -840 1190 / 1190 -1250 / -60 Weight last 48 hrs Weight 230 lb 9.6 oz Weight 230 lb 9.6 oz Physical Exam Narrative: EXAM NARRATIVE: General: No acute distress, AO x3, mildly tachypneic, HEENT: PERRLA, pupils bilaterally equal and reactive Chest: coarse crackles R>L CVS: S1-S2 regular, no murmurs, tachycardia, no gallops, no rubs Abdomen: Soft, nontender, no organomegaly, bowel sounds present Neuro: No focal deficits, no facial deformity, AO x3, power 5/5 in all limbs Urinary Catheter Management^: Blandon: Cath Placed During This Visit: yes Reason for Continuing Indwelling Catheter: Accurate Measurement of Urinary Output in Critically Ill Patients Urinary Catheter Date of Insertion: 10/20/19 Urinary Catheter Time of Insertion: 10:45 Data Labs: Other Labs: Laboratory Results WBC 12.3 10^3/uL (4.0 -10.0) H 10/22/19 05:01 RBC 4.35 10^6/uL (4.1 -5.3) 10/22/19 05:01 Hgb 13.3 g/dL (11.7-1 6.6) 10/22/19 05:01 Hct 41.0 % (42.0-52.0 ) L 10/22/19 05:01 MCV 94.3 fL (80-94) H 10/22/19 05:01 MCH 30.6 pg (28.0-34. 0) 10/22/19 05:01 MCHC 32.4 g/dL (30.0-3 6.0) 10/22/19 05:01 RDW 12.6 % (12.1-15.1 ) 10/22/19 05:01 Plt Count 201 10^3/cmm (130 -400) 10/22/19 05:01 MPV 10.9 fL (7.4-10.4 ) H 10/22/19 05:01 Neut % (Auto) 87.1 % 10/22/19 05:01 Lymph % (Auto) 6.3 % 10/22/19 05:01 Hardin % (Auto) 5.9 % 10/22/19 05:01 Eos % (Auto) 0.0 % 10/22/19 05:01 Baso % (Auto) 0.1 % 10/22/19 05:01 Neut # (Auto) 10.72 10^3/uL (1. 8-7.7) H 10/22/19 05:01 Lymph # (Auto) 0.8 10^3/uL (0.8- 4.8) 10/22/19 05:01 Hardin # (Auto) 0.7 10^3/uL (0.2- 0.9) 10/22/19 05:01 Eos # (Auto) 0.0 10^3/uL (0.0- 0.8) 10/22/19 05:01 Baso # (Auto) 0.0 10^3/uL (0.0- 0.1) 10/22/19 05:01 Nucleated RBC % (a uto) 0 % 10/22/19 05:01 Nucleated RBCs # 0.0 /100WBC 10/22/19 05:01 ESR 80 mm/hr (0-10) H 10/19/19 19:55 PT 22.20 SECONDS (10 .5-13.3) H 10/21/19 06:15 INR 1.87 (0.8-1.2) H 10/21/19 06:15 Fibrinogen 832 mg/dL (184-52 9) H 10/21/19 06:15 D-Dimer 0.51 ug/mIFEU (0- 0.59) 10/22/19 05:01 Specimen Type Arterial 10/22/19 05:35 Sample Site Radial, right 10/22/19 05:35 ABG pH 7.43 (7.35-7.45) 10/22/19 05:35 ABG pCO2 41.2 mmHg (35-45) 10/22/19 05:35 ABG pO2 62.0 mmHg (80.0-1 00.0) L 10/22/19 05:35 ABG HCO3 27.0 mmol/L (22-2 6) H 10/22/19 05:35 ABG O2 Saturation 94.5 10/21/19 10:15 ABG Base Excess 2.4 mmol/L (-2.0- 2.0) H 10/22/19 05:35 Scooter Test Pos 10/22/19 05:35 A-a O2 Gradient 301.2 mmHg (5-10) H 10/21/19 10:15 Hematocrit 42.8 % (42-52) 10/22/19 05:35 Hgb O2 Saturation 93.3 % (95-100) L 10/21/19 10:15 Carboxyhemoglobin 0.5 %THgb (0.4-20 .1) 10/21/19 10:15 Methemoglobin 0.9 % (0.4-1.5) 10/21/19 10:15 Total Hemoglobin 13.8 g/dL (14-18) L 10/21/19 10:15 Sodium 135.0 mmol/L (131 -143) 10/21/19 10:15 Potassium 4.2 mmol/L (3.5-5 .0) 10/21/19 10:15 Glucose 452.0 mg/dL (70-1 15) H 10/21/19 10:15 Ionized Calcium 1.1 mmol/L (1.1-1 .4) 10/21/19 10:15 O2 Delivery Device Hag 10/22/19 05:35 O2 Liters/Min 35.0 % 10/22/19 05:35 FiO2 0.7 % 10/22/19 05:35 Distribution Associate ID [email or web address] 10/22/19 05:35 Sodium 137 mmol/L (136-1 45) 10/22/19 05:01 Potassium 4.2 mmol/L (3.5-5 .1) 10/22/19 05:01 Chloride 100 mmol/L (98-10 7) 10/22/19 05:01 Carbon Dioxide 26 mmol/L (22-29) 10/22/19 05:01 Anion Gap 15.2 (5-19) 10/22/19 05:01 BUN 40 mg/dL (8-23) H 10/22/19 05:01 Creatinine 1.9 mg/dL (0.7-1. 2) H 10/22/19 05:01 Glucose 384 mg/dL (65-115 ) H 10/22/19 05:01 POC Glucose 395 mg/dL (70-110 ) 10/22/19 16:16 Calculated Osmolal ity 298 mOsm/kg (285- 295) H 10/22/19 05:01 Lactic Acid 2.2 mmol/L (0.5-2 .2) 10/21/19 06:15 Lactic Acid (Sepsi s) 2.6 mmol/L (0.5-2 .2) H 10/21/19 11:25 Lactate 1.5 mmol/L (0.5-2 .2) 10/19/19 19:55 Calcium 8.2 mg/dL (8.5-10 .5) L 10/22/19 05:01 Phosphorus 3.1 mg/dL (2.5-4. 5) 10/22/19 05:01 Magnesium 2.6 mg/dL (1.7-2. 3) H 10/22/19 05:01 Ferritin 1475 ng/mL (30-40 0) H 10/22/19 05:01 Total Bilirubin 0.6 mg/dL (0.15-1 .2) 10/22/19 05:01 AST 52 U/L (0-40) H 10/22/19 05:01 ALT 38 U/L (0-41) 10/22/19 05:01 Alkaline Phosphata se 50 IU/L (40-130) 10/22/19 05:01 Lactate Dehydrogen ase 457 U/L (135-225) H 10/22/19 05:01 Creatine Kinase 711 U/L (39-308) H* 10/22/19 05:01 Troponin T Gen 5 n g/L 24 ng/L (0-15) H 10/21/19 06:15 Troponin T Baselin e 29 ng/L (0-15) H 10/19/19 19:55 Troponin T 120 Min maxwell 29.51 ng/L (0-15) H 10/19/19 21:40 Delta Troponin T 0.51 ABS# (0-10) 10/19/19 21:40 Troponin T Hi Sens 6Hr 17.12 ng/L (0-15) H 10/20/19 01:28 Troponin T Hi Sens 6Hr Delta -11.88 ng/L (0-12 ) L 10/20/19 01:28 C-Reactive Protein 124.6 mg/L (0.0-4 .9) H 10/22/19 05:01 NT-Pro-B Natriuret Pep 468 pg/mL (0-125) H 10/22/19 05:01 Total Protein 6.1 g/dL (6.6-8.7 ) L 10/22/19 05:01 Albumin 2.6 g/dL (3.5-5.2 ) L 10/22/19 05:01 Globulin 3.5 g/dL (1.3-4.6 ) 10/22/19 05:01 Procalcitonin 0.29 ng/mL (0-0.5 ) 10/22/19 05:01 TSH 0.34 uIU/mL (0.27 -4.20) 10/20/19 04:12 Random Cortisol 24.14 ug/mL (2.47 -19.5) H 10/20/19 09:15 Urine Color Yellow (Yellow) 10/19/19 20:25 Urine Appearance Clear (CLEAR) 10/19/19 20:25 Urine pH 5 (5-7) 10/19/19 20:25 Ur Specific Gravit y 1.015 (1.005-1.0 30) 10/19/19 20:25 Urine Protein 1+ (Negative) H 10/19/19 20:25 Urine Glucose (UA) Norm (Normal) 10/19/19 20:25 Urine Ketones Negative (Negati ve) 10/19/19 20:25 Urine Blood 2+ (Negative) H 10/19/19 20:25 Urine Nitrate Negative (Negati ve) 10/19/19 20:25 Urine Bilirubin Neg (NEGATIVE) 10/19/19 20:25 Urine Urobilinogen Norm mg/dL (Negat farzana) 10/19/19 20:25 Ur Leukocyte Oksana ase Negative (Negati ve) 10/19/19 20:25 Urine RBC 0-4 /hpf (0-2) H 10/19/19 20:25 Urine WBC None /hpf (0-5) 10/19/19 20:25 Ur Squamous Epith Cells None (0-5) 10/19/19 20:25 Urine Bacteria Trace (NONE) 10/19/19 20:25 Hyaline Casts 5-10 H 10/19/19 20:25 Nasal/Oral COVID-1 9 PCR Positive see repo rt H 10/19/19 23:02 Influenza Type A A g Negative (Negati ve) 10/20/19 04:30 Influenza Type B A g Negative (Negati ve) 10/20/19 04:[address] 10/20/19 08:08 IMPRESSION: 1. Diffuse hazy groundglass infiltrates throughout both lungs. Findings are nonspecific but can be seen with atypical pneumonia or viral pneumonias including Covid-19. 2. No significant pleural fluid. No focal consolidation. 3. No mediastinal or hilar lymphadenopathy. 4. Coronary calcification. 5. Prominent gallstone in the gallbladder. Gallbladder appears contracted. No visualized wall thickening or fluid. Chest X-Ray 10/22/19 06:00 IMPRESSION: Bilateral patchy diffuse pulmonary infiltrates improved since October 21, 2019 10/19/19 10/21/19 10/22/19 22:20 10:15 05:35 ABG pH 7.47 H 7.42 7.43 ABG pCO2 38.3 38.0 41.2 ABG pO2 58.0 L 70.1 L 62.0 L ABG HCO3 28.1 H 24.6 27.0 H ABG O2 Saturation 94.5 ABG Base Excess 4.3 H 0.2 2.4 H Micro: Micro: Microbiology 10/22/19 11:00 Gram Stain - Final Sputum - Expector ated Sputum 10/21/19 12:45 Blood Culture - Pr eliminary Blood NEGATIVE TO MARY E 10/21/19 12:30 Blood Culture - Pr eliminary Blood NEGATIVE TO MARY E 10/21/19 12:35 MRSA Culture - Fin al Nose A&P Assessment and plan (1) ARDS (adult respiratory distress syndrome): Status: Acute (2) COVID-19: Status: Acute (3) Acute kidney injury superimposed on CKD: Status: Acute (4) CHF (congestive heart failure): Status: Acute Qualifiers: Heart failure type: diastolic Heart failure chronicity: chronic Qualified Code(s): I50.32 - Chronic diastolic (congestive) heart failure (5) Atrial fibrillation: Status: Acute Qualifiers: Atrial fibrillation type: longstanding persistent Qualified Code(s): I48.11 - Longstanding persistent atrial fibrillation (6) Diabetes: Status: Acute Qualifiers: Diabetes mellitus type: type 2 Diabetes mellitus fci insulin use: with fci use Diabetes mellitus complication status: with hyperglycemia Qualified Code(s): E11.65 - Type 2 diabetes mellitus with hyperglycemia; Z79.4 - alf (current) use of insulin (7) Hypertension: Status: Acute Qualifiers: Hypertension type: essential hypertension Qualified Code(s): I10 - Essential (primary) hypertension (8) Hyperlipidemia: Status: Acute Qualifiers: Hyperlipidemia type: mixed hyperlipidemia Qualified Code(s): E78.2 - Mixed hyperlipidemia (9) Elevated CK: Status: Acute 73 year old gentleman with past medical history of CAD, paroxysmal atrial fibrillation, chronic disease, DM 2, HLD, HTN, obesity reports about a 2-week history of progressive malaise, fatigue/generalized weakness being managed in VICU for acute hypoxemic respiratory failure secondary to COVID Pneumonia. PRE BILLING SPECIALIST: No acute issues Pulm: Acute hypoxemic respiratory failure/ARDS - Secondary to COVID pneumonIA/CAP - Currently on 40L 60% Saturating 94% on RA breathing comfortably - MRSA Nares negative; Flu negative, Urine Legionella negative - Recommended to discontinue vancomycin and continue rest of the antibx until final culture results and - Currently on Dexamethasone & remdesivir - Continue nebs as pt is airborne isolation - Low threshold for intubation but currently pt. is DNI - daily ABG and monitor saturation - CXR every other day or as needed/if clinically warrants to minimize exposure. - Monitor CRP, D-Dimer, LDH, Ferritin - every other day CVS: A fib - rate controlled - Hemodynmically stable - Carvedilol, Amiodarone, eliquis 5 mg po bid - Renal: Acute kidney injury superimposed on CKD: Monitor renal function, urine output. Hold lisinopril for now. monitor input/output - keep negative/even monitor electrolytes and supplement Lasix 40 mg PO BID GI: Mild transaminitis & Elevated CK: hold statin for now. Monitor LFTS; DC Amiodarone if worsens. Nutrition: Diabetic diet regular Endo: Diabetes - sugars uncontrolled - likely due to dexamethasone - Currently on Lantus 60 BID - Monitor sugars and adjust insulin accordingly recommended insulin gtt for better control Heme: No acute issues DVT ppx: currently on Eliquis for afib ID: refer to pulm section Plan discussed & conveyed to Dr. Dobson (Primary attending) Plan of care and management discussed with the Patient and he verbalized understanding and agreed with the plan. Consult Attestations Medical Necessity Statement: COVID 19 PNEUMONIA - ACUTE HYPOXEMIC RESPIRATORY FAILURE Time Spent in Patient Care: Greater than 35 minutes Critical Care Time: Critical Care Time (min): 45 Coding Level of Care Code New Pt Acute Animal Cruelty Investigation Supervisor for Chg Fwd Patient Type New History Detailed Exam Comprehensive Medical Decision Making High Complexity Diagnoses ARDS (adult respiratory distress syndrome) J80 COVID-19 U07.1 Acute kidney injury superimposed on CKD N17.9; N18.9 CHF (congestive heart failure) I50.32 Heart failure type: diastolic Heart failure chronicity: chronic Atrial fibrillation I48.11 Atrial fibrillation type: longstanding persistent Diabetes E11.65; Z79.4 Diabetes mellitus type: type 2 Diabetes mellitus fci insulin use: with moth exterminator use Diabetes mellitus complication status: with hyperglycemia Hypertension I10 Hypertension type: essential hypertension Hyperlipidemia E78.2 Hyperlipidemia type: mixed hyperlipidemia Elevated CK R74.8
[2019-10-23] VITALS (25 sets, daily range): BP systolic 107–162; BP diastolic 66–98; PULSE 55–82; RESP 12–31; TEMP 36.5–36.7; O2SAT 82–97; BMI 34.0
[2019-10-23] MEDS: piperacillin-tazobactam 3.375 GM in sodium chloride 0.9% (plus) 50 ML IV ×3 (02:07→17:44)
[2019-10-23 05:55] LABS: Basophils % 0.1 %; Hematocrit 40.3 % (42.0-52.0); Hemoglobin 13.2 g/dL (11.7-16.6); Lymphocytes # 0.8 10^3/uL (0.8-4.8); Lymphocytes % 6.7 %; Mean Corpuscular HGB Conc 32.8 g/dL (30.0-36.0); Mean Corpuscular Hemoglobin 30.8 pg (28.0-34.0); Mean Corpuscular Volume 94.2 fL (80-94); Mean Platelet Volume 11.1 fL (7.4-10.4); Monocytes # 0.9 10^3/uL (0.2-0.9); Monocytes % 7.5 %; Neutrophils # 10.64 10^3/uL (1.8-7.7); Nucleated Red Blood Cells % 0 %; Platelet Count 212 10^3/cmm (130-400); Red Blood Count 4.28 10^6/uL (4.1-5.3); Red Cell Distribution Width 12.6 % (12.1-15.1); White Blood Count 12.5 10^3/uL (4.0-10.0)
--- NOTE | 2019-10-23 06:00 | XRR_ITS ---
PROCEDURE INFORMATION: Exam: XR Chest, 1 View Exam date and time: 10/23/2019 7:19 AM Age: 73 years old Clinical indication: Pain; Other: Malaise, weakness; Patient HX: Acute respiratory failure secondary to covid pneumonia. Malaise, fatigue/generalized weakness; Additional info: Covid 19 TECHNIQUE: Imaging protocol: XR of the chest Views: 1 view. COMPARISON: CR XR chest 1V portable [id number] 10/22/2019 6:57 AM FINDINGS: Lungs: There is bilateral airspace disease with a peripheral prominence compatible with the history of COVID-19 pneumonia. This has worsened in the interval. Pleural space: No pleural effusion or pneumothorax. Heart/Mediastinum: The cardiac silhouette is not enlarged. The mediastinal contours are normal. Bones/joints: There are multilevel bridging osteophytes in the spine. XR/XR chest 1V portable [id number] IMPRESSION: Worsening of bilateral pneumonia.
[2019-10-23 06:23] LABS: ABG PCO2 39.1 mmHg (35-45); ABG PH Result 7.46 (7.35-7.45); Arterial Blood Gas Hematocrit 43.2 % (42-52); Base Excess ABG 3.7 mmol/L (-2.0-2.0); Blood Gas Allen Test Pos; Blood Gas Sample Site Radial, right; Blood Gas Sample Type Arterial; HCO3 ABG 27.7 mmol/L (22-26); Oxygen Device HAG; PO2 ABG 61.5 mmHg (80.0-100.0)
[2019-10-23 07:09] LABS: Fibrinogen 632 mg/dL (184-529)
[2019-10-23 07:18] LABS: C Reactive Protein 69.3 mg/L (0.0-4.9); Magnesium 2.6 mg/dL (1.7-2.3); Phosphorus 3.4 mg/dL (2.5-4.5)
[2019-10-23 07:19] LABS: Alanine Aminotransferase 44 U/L (0-41); Albumin Level 2.6 g/dL (3.5-5.2); Alkaline Phosphatase 54 IU/L (40-130); Anion Gap 15.2 (5-19); Aspartate Amino Transferase 61 U/L (0-40); Blood Urea Nitrogen 43 mg/dL (8-23); Calcium 8.3 mg/dL (8.5-10.5); Carbon Dioxide 26 mmol/L (22-29); Chloride 102 mmol/L (98-107); Globulin 3.5 g/dL (1.3-4.6); Glucose 314 mg/dL (65-115); Osmolality Calculated 298 mOsm/kg (285-295); Potassium 4.2 mmol/L (3.5-5.1); Sodium 139 mmol/L (136-145); Total Bilirubin 0.5 mg/dL (0.15-1.2); Total Protein 6.1 g/dL (6.6-8.7)
[2019-10-23] MEDS: FUROsemide 40 mg Tablet PO (07:23)
[2019-10-23 07:45] LABS: Glucose Point of Care 311 mg/dL (70-110)
[2019-10-23 07:50] LABS: Slide Review Slide Review Perform
[2019-10-23 08:02] LABS: Erythrocyte Sedimentation Rate 54 mm/hr (0-10)
[2019-10-23] MEDS: apixaban 5 mg Tablet PO ×2 (08:41→17:20)
[2019-10-23] MEDS: amiodarone 200 mg Tablet PO (08:41)
[2019-10-23] MEDS: ascorbic acid 500 mg Tablet PO (08:41)
[2019-10-23] MEDS: dexamethasone 4 mg/mL INJ 6 MG IVP (08:42)
[2019-10-23] MEDS: carvedilol 6.25 mg Tablet PO ×2 (08:42→17:20)
[2019-10-23] MEDS: clopidogrel 75 mg Tablet PO (08:42)
[2019-10-23] MEDS: thiamine 100 mg Tablet PO ×2 (08:43→17:20)
[2019-10-23] MEDS: pantoprazole 40 mg SDV IVP (08:43)
[2019-10-23] MEDS: insulin glargine 100 units/1 mL 60 UNIT SUBCUT ×2 (08:43→17:43)
[2019-10-23 09:18] LABS: Ferritin 929 ng/mL (30-400); Lactate Dehydrogenase 479 U/L (135-225); NT Pro B Type Natriuretic Pept 543 pg/mL (0-125)
[2019-10-23 09:22] LABS: Creatine Phosphokinase 868 U/L (39-308)
[2019-10-23 09:45] LABS: CKMB 5.5 ng/mL (0-10.4)
--- NOTE | 2019-10-23 10:16 | PM.PN ---
Subjective Subjective: Interval history: No acute events overnight. Patient was seen multiple times in the day both through tele-visit and in person. During the day patient was not able to be weaned down to 30 L 40% maintaining around 90% both on rest and exertion. Patient sat in chair for around 4 to 5 hours. He states he is feeling a lot more cheerful and has more strength today. During talking to me patient is able to talk in complete sentences, does not have any cough but does feel and look at her tachypneic after on 5 minutes. Patient has her own 2 episodes of bowel movement since today morning both well formed. Hemodynamics, labs and vitals have been noted. Vitals/I&O/Wt Last Vital Signs Temp 97.6 F 10/22/19 20:00 Pulse 62 10/23/19 04:00 Resp 23 H 10/23/19 04:00 BP 135/84 10/23/19 04:00 Pulse Ox 93 10/23/19 04:00 10/22/19 10/23/19 10/23/19 22:59 06:59 14:59 Intake Total 550 / 1740 500 / 500 Output Total 1750 / 1750 600 / 2350 Balance -1200 / -10 -600 / -610 500 / 500 Weight last 48 hrs Weight 104.598 kg Weight 104.598 kg Physical Exam Narrative: EXAM NARRATIVE: General: No acute distress, AO x3, mildly tachypneic, looking tired but better than yesterday. HEENT: PERRLA, pupils bilaterally equal and reactive Chest: Bronchial breath sounds on most of the lung castro anterior more than posterior, coarse crackles present in right upper and middle zone, equal air entry bilaterally, poor inspiration effort. CVS: S1-S2 regular, no murmurs, tachycardia, no gallops, no rubs Abdomen: Soft, nontender, no organomegaly, bowel sounds present Neuro: No focal deficits, no facial deformity, AO x3, power 5/5 in all limbs Urinary Catheter Management^: Blandon: Cath Placed During This Visit: yes Reason for Continuing Indwelling Catheter: Accurate Measurement of Urinary Output in Critically Ill Patients Urinary Catheter Date of Insertion: 10/20/19 Urinary Catheter Time of Insertion: 10:45 Data : 10/23/19 04:45 10/23/19 04:45 Micro: Microbiology 10/22/19 11:00 Gram Stain - Final Sputum - Expectorated Sputum 10/21/19 12:45 Blood Culture - Preliminary Blood NEGATIVE TO DATE 10/21/19 12:30 Blood Culture - Preliminary Blood NEGATIVE TO DATE 10/21/19 12:35 MRSA Culture - Final Nose A&P Assessment and plan (1) COVID-19: Status: Acute (2) ARDS (adult respiratory distress syndrome): Status: Acute (3) Acute respiratory failure with hypoxia: Status: Acute (4) Pulmonary hypertension: Status: Acute (5) Community acquired pneumonia: As above. Status: Acute (6) Atrial fibrillation: Status: Acute Qualifiers: Atrial fibrillation type: longstanding persistent Qualified Code(s): I48.11 - Longstanding persistent atrial fibrillation (7) Acute kidney injury superimposed on CKD: Stage III chronic disease. Baseline creatinine appears around 2. Monitor renal function, urine output. Hold lisinopril for now. 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 transplanted heart: [place] heart Qualified Code(s): I25.10 - Atherosclerotic heart disease of [place] coronary artery without angina pectoris (10) Hypertension: Status: Acute Qualifiers: Hypertension type: essential hypertension Qualified Code(s): I10 - Essential (primary) hypertension (11) Hyperlipidemia: Status: Acute Qualifiers: Hyperlipidemia type: mixed hyperlipidemia Qualified Code(s): E78.2 - Mixed hyperlipidemia (12) CHF (congestive heart failure): Status: Acute Qualifiers: Heart failure chronicity: chronic Heart failure type: diastolic Qualified Code(s): I50.32 - Chronic diastolic (congestive) heart failure (13) Elevated erythrocyte sedimentation rate: Unclear reason obvious elevation at this time. Will request for CRP. Status: Acute (14) Elevated CK: Suspect may be mild rhabdomyolysis secondary to statin. Hold statin for now. Recheck. Monitor renal function. Status: Acute (15) Transaminitis: Mild transaminitis. Will hold statin for now. Recheck. Consider that he is also on amiodarone if there is no improvement. Status: Acute Additional A&P Information ARDS: COVID-19: Acute hypoxic respiratory failure: Continue with contact and droplet precautions. Patient got first dose of Remdesevir yesterday. Day 4 of dose today. Will most likely try to continue for 5 to 7 days. We will confirm with pharmacy if more medication could be made available. Continue to follow inflammatory markers including ESR, CRP, ferritin, LDH, d-dimer every other day. Spiriva, Advair. Incentive spirometry. Tessalon Perles as needed. Continue with guidelines guided Decadron 6 mg IV daily. We will start patient on thiamine 100 mg oral twice daily, ascorbic acid 500 mg daily because of poor renal functions, zinc daily. For possible superimposed bacterial infection we will continue with vancomycin and Zosyn. Check MRSA swab, sputum culture, bacterial antigen. Day 5/7 of treatment. Patient is DNR/DNI. Discussed as above regarding potential transfer to higher center if patient have denied at present. Will discuss again if not able to get the medication. Hypertension: Patient is on lisinopril, Coreg, amlodipine. Goal blood pressure less than 140/90 mmHg. Keep mean arterial pressure over 65 mmHg. Blood pressures better today. We will continue to hold off on amlodipine and lisinopril. Continue with home dose of Coreg. Rhabdomyolysis: Most likely because of increased work of breathing. We will have to keep her manager testing because of ARDS. We will decrease the dose of Lasix from twice daily to daily. History of CAD: No chest pain at present. Continue with home dose of Plavix and statin. CKD: Baseline creatinine around 2. Creatinine better today. Electrolytes stable. No sign of metabolic acidosis. Atrial fibrillation: Rate controlled at present. Continue with Eliquis at current dose. It would also help with potential thromboembolic/thrombophilic response of COVID-19. Continue with home dose of Coreg. History of CHF: Repeat echocardiogram results appreciated. Normal EF with mild grade 1 diastolic dysfunction and no pulmonary hypertension. Continue with home dose of Lasix 40 mg daily. Patient is overall 2.6 L negative. Diabetes mellitus: Difficult to control blood sugars at present because of IV Decadron. Blood work not consistent with DKA. At home patient takes Levemir 72 units at bedtime. Admitted to Levemir 18 units twice daily. Blood sugars to be checked every 4 hours. If sugars continue to remain high will most likely have to transition him over to insulin drip tomorrow morning. Continue with carb consistent cardiac diet. Konrad will help with DVT prophylaxis as well. DNR/DNI Severely Gaurded prognosis Attestations Medical Necessity Statement*: ARDS because of COVID-19 pneumonia, severely uncontrolled diabetes mellitus. 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 [facility] Diagnoses COVID-19 U07.1 ARDS (adult respiratory distress syndrome) J80 Acute respiratory failure with hypoxia J96.01 Pulmonary hypertension I27.20 Community acquired pneumonia J18.9 Atrial fibrillation I48.11 Atrial fibrillation type: longstanding persistent Acute kidney injury superimposed on CKD N17.9; N18.9 Diabetes E11.65; Z79.4 Diabetes mellitus complication status: with hyperglycemia Diabetes mellitus residential insulin use: with residential use Diabetes mellitus type: type 2 CAD (coronary artery disease) I25.10 Associated angina: without angina Coronary Disease-Associated Artery/Lesion type: [place] artery [place] vs. transplanted heart: [place] heart Hypertension I10 Hypertension type: essential hypertension Hyperlipidemia E78.2 Hyperlipidemia type: mixed hyperlipidemia CHF (congestive heart failure) I50.32 Heart failure chronicity: chronic Heart failure type: diastolic Elevated erythrocyte sedimentation rate R70.0 Elevated CK R74.8 Transaminitis R74.0
[2019-10-23 11:05] LABS: Vancomycin Trough 12.7 ug/mL (10-15)
[2019-10-23 13:42] LABS: Glucose Point of Care 297 mg/dL (70-110)
[2019-10-23 14:32] LABS: Glucose Point of Care 350 mg/dL (70-110)
[2019-10-23] MEDS: insulin glargine 100 units/1 mL 20 UNIT SUBCUT (18:21)
[2019-10-23 18:37] LABS: Glucose Point of Care 317 mg/dL (70-110)
[2019-10-23 22:14] LABS: Glucose Point of Care 257 mg/dL (70-110)
[2019-10-24] VITALS (24 sets, daily range): BP systolic 133–164; BP diastolic 66–99; PULSE 47–81; RESP 14–39; TEMP 36.5; O2SAT 88–96; BMI 34.0
[2019-10-24] MEDS: piperacillin-tazobactam 3.375 GM in sodium chloride 0.9% (plus) 50 ML IV ×3 (03:53→16:55)
[2019-10-24 04:03] LABS: Glucose Point of Care 131 mg/dL (70-110)
[2019-10-24 06:27] LABS: Glucose Point of Care 111 mg/dL (70-110)
[2019-10-24 06:53] LABS: Ferritin 453 ng/mL (30-400)
[2019-10-24 06:56] LABS: D Dimer 0.64 ug/mIFEU (0-0.59)
[2019-10-24] MEDS: apixaban 5 mg Tablet PO ×2 (08:13→16:51)
[2019-10-24] MEDS: amiodarone 200 mg Tablet PO (08:13)
[2019-10-24] MEDS: ascorbic acid 500 mg Tablet PO (08:14)
[2019-10-24] MEDS: clopidogrel 75 mg Tablet PO (08:14)
[2019-10-24] MEDS: carvedilol 6.25 mg Tablet PO ×2 (08:14→16:53)
[2019-10-24] MEDS: dexamethasone 4 mg/mL INJ 6 MG IVP (08:14)
[2019-10-24] MEDS: insulin glargine 100 units/1 mL 80 UNIT SUBCUT ×2 (08:14→22:22)
[2019-10-24] MEDS: thiamine 100 mg Tablet PO ×2 (08:15→16:56)
[2019-10-24] MEDS: pantoprazole 40 mg SDV IVP (08:15)
[2019-10-24] MEDS: benzonatate 100 mg Capsule PO (08:18)
--- NOTE | 2019-10-24 09:33 | PC.NURSE ---
PATIENT HAS BEEN BATHED AND SHAVED. ORAL CARE PERFORMED AND RESPITORY MEDICATIONS TAKEN IE SPIRIVA AND ADVAIR. DURING THE BATH HIS MIX HAD TO BE 40/60 ON THE OXIMIZER TO KEEP HIS SATS ABOVE 90. ONCE THE ACTIVITY WAS OVER I ATTEMPTED TO WEAN HIM. UNFORTUNATELY AT A SETTING OF 30/50 HE DROPPED TO 72 WHEN HE DRIFTED TO SLEEP, AWAKE HE WAS 88% SO HIS CURRENT WEAN IS 35/55 TO KEEP HIM AT 90 OR BETTER. HIS NOSE LIP AREA IS GETTING SORE SO WE STARTED ALOE VESTA BARRIER CREAM. HE ATE WELL OVER 80% OF HIS MEAL. BLOOD SUGARS ARE IMPROVING. HE IS A DEAR MAN.
[2019-10-24 10:02] LABS: Glucose Point of Care 189 mg/dL (70-110)
--- NOTE | 2019-10-24 10:06 | P.PN_ITS ---
Subjective Subjective: Interval history: Patient doing a lot better. No acute events. Seen multiple multiple times today both via telehealth and and personally. During the whole day patient has been on 40 L 40% FiO2 saturating around 90-93. Patient had a bath today and after which he desaturated for some time. He sat in the bed for some time. He is cheerful. States his energy levels are good. Denies of having any chest pain, nausea, vomiting, headache, dizziness. Vitals/I&O/Wt Last Vital Signs Temp 97.7 F 10/24/19 08:00 Pulse 78 10/24/19 08:00 Resp 18 10/24/19 08:00 BP 138/70 10/24/19 08:00 Pulse Ox 90 10/24/19 08:00 10/23/19 10/24/19 10/24/19 22:59 06:59 14:59 Intake Total 550 / 1350 590 / 590 Output Total 1250 / 2050 575 / 2625 Balance -700 / -700 -575 / -1275 590 / 590 Weight last 48 hrs Weight 104.598 kg Weight 104.598 kg Physical Exam Narrative: EXAM NARRATIVE: General: No acute distress, AO x3, mildly tachypneic, looking tired but better than yesterday. HEENT: PERRLA, pupils bilaterally equal and reactive Chest: Bronchial breath sounds on most of the lung castro anterior more than posterior, coarse crackles present in right upper and middle zone, equal air entry bilaterally, poor inspiration effort. CVS: S1-S2 regular, no murmurs, tachycardia, no gallops, no rubs Abdomen: Soft, nontender, no organomegaly, bowel sounds present Neuro: No focal deficits, no facial deformity, AO x3, power 5/5 in all limbs Urinary Catheter Management^: Blandon: Cath Placed During This Visit: yes Reason for Continuing Indwelling Catheter: Accurate Measurement of Urinary Output in Critically Ill Patients Urinary Catheter Date of Insertion: 10/20/19 Urinary Catheter Time of Insertion: 10:45 Data : 10/24/19 10:35 10/24/19 10:35 Micro: Microbiology 10/22/19 03:00 Stool Lactoferrin - Final Stool Enteric Pathogens (PCR) - Final Parasite Antigen Panel - Final C.difficile Toxin B Gene (PCR) - Final Occult Blood (FIT) - Final 10/22/19 11:00 Gram Stain - Final Sputum - Expectorated Sputum Sputum Culture - Preliminary A&P Assessment and plan (1) COVID-19: Status: Acute (2) ARDS (adult respiratory distress syndrome): Status: Acute (3) Acute respiratory failure with hypoxia: Status: Acute (4) Pulmonary hypertension: Status: Acute (5) Community acquired pneumonia: As above. Status: Acute (6) Atrial fibrillation: Status: Acute Qualifiers: Atrial fibrillation type: longstanding persistent Qualified Code(s): I48.11 - Longstanding persistent atrial fibrillation (7) Acute kidney injury superimposed on CKD: Stage III chronic disease. Baseline creatinine appears around 2. Monitor renal function, urine output. Hold lisinopril for now. 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 transplanted heart: [place] heart Qualified Code(s): I25.10 - Atherosclerotic heart disease of [place] coronary artery without angina pectoris (10) Hypertension: Status: Acute Qualifiers: Hypertension type: essential hypertension Qualified Code(s): I10 - Essential (primary) hypertension (11) Hyperlipidemia: Status: Acute Qualifiers: Hyperlipidemia type: mixed hyperlipidemia Qualified Code(s): E78.2 - Mixed hyperlipidemia (12) CHF (congestive heart failure): Status: Acute Qualifiers: Heart failure chronicity: chronic Heart failure type: diastolic Qualified Code(s): I50.32 - Chronic diastolic (congestive) heart failure (13) Elevated erythrocyte sedimentation rate: Unclear reason obvious elevation at this time. Will request for CRP. Status: Acute (14) Elevated CK: Suspect may be mild rhabdomyolysis secondary to statin. Hold statin for now. Recheck. Monitor renal function. Status: Acute (15) Transaminitis: Mild transaminitis. Will hold statin for now. Recheck. Consider that he is also on amiodarone if there is no improvement. Status: Acute Additional A&P Information ARDS: COVID-19: Acute hypoxic respiratory failure: Continue with contact and droplet precautions. Patient got first dose of Remdesevir yesterday. Day 5 of dose today. Will most likely try to continue for 7 days. We will confirm with pharmacy if more medication could be made available. Continue to follow inflammatory markers including ESR, CRP, ferritin, LDH, d- dimer every other day. Labs will be checked tomorrow. Spiriva, Advair. Incentive spirometry. Tessalon Perles as needed. Continue with guidelines guided Decadron 6 mg IV daily. Will decrease to 3 mg IV from tomorrow as patient is on fifth day of Decadron today. We will start patient on thiamine 100 mg oral twice daily, ascorbic acid 500 mg daily because of poor renal functions, zinc daily. For possible superimposed bacterial infection we will continue with vancomycin and Zosyn. Check MRSA swab, sputum culture, bacterial antigen. Day 6/7 of treatment. If patient continues to do well can plan to discontinue antibiotics tomorrow and monitor. Patient is DNR/DNI. Discussed as above regarding potential transfer to higher center if patient have denied at present. Will discuss again if not able to get the medication. Hypertension: Patient is on lisinopril, Coreg, amlodipine. Goal blood pressure less than 140/90 mmHg. Keep mean arterial pressure over 65 mmHg. Blood pressures getting better now. We will continue to hold off on amlodipine and lisinopril. Continue with home dose of Coreg. Rhabdomyolysis: Most likely because of increased work of breathing. We will have to keep her stretcher and drier because of ARDS. We will decrease the dose of Lasix from twice daily to daily. History of CAD: No chest pain at present. Continue with home dose of Plavix and statin. CKD: Baseline creatinine around 2. Creatinine better today. Electrolytes stable. No sign of metabolic acidosis. Atrial fibrillation: Rate controlled at present. Continue with Eliquis at current dose. It would also help with potential thromboembolic/thrombophilic response of COVID-19. Continue with home dose of Coreg. History of CHF: Repeat echocardiogram results appreciated. Normal EF with mild grade 1 diastolic dysfunction and no pulmonary hypertension. Continue with home dose of Lasix 40 mg daily. Patient is overall 2.6 L negative. Diabetes mellitus: Difficult to control blood sugars at present because of IV Decadron. Blood work not consistent with DKA.At home patient takes Levemir 72 units at bedtime. Sugars better today Continue Levemir 80 units twice daily along with insulin at high-dose protocol every 4 hours. Continue with carb consistent cardiac diet. Eliquis will help with DVT prophylaxis as well. DNR/DNI Severely Gaurded prognosis Attestations Medical Necessity Statement*: COVID-19 pneumonia, ARDS, uncontrolled blood sugars Time Spent in Patient Care: Greater than 35 minutes (>than 50% of time spent in counselling and/or direct pt care on unit) . Coding Level of Care Code Acute Rate Inserter for g Fwd Diagnoses COVID-19 U07.1 ARDS (adult respiratory distress syndrome) J80 Acute respiratory failure with hypoxia J96.01 Pulmonary hypertension I27.20 Community acquired pneumonia J18.9 Atrial fibrillation I48.11 Atrial fibrillation type: longstanding persistent Acute kidney injury superimposed on CKD N17.9; N18.9 Diabetes E11.65; Z79.4 Diabetes mellitus complication status: with hyperglycemia Diabetes mellitus exterminator termite insulin use: with fci use Diabetes mellitus type: type 2 CAD (coronary artery disease) I25.10 Associated angina: without angina Coronary Disease-Associated Artery/Lesion type: [place] artery [place] vs. transplanted heart: [place] heart Hypertension I10 Hypertension type: essential hypertension Hyperlipidemia E78.2 Hyperlipidemia type: mixed hyperlipidemia CHF (congestive heart failure) I50.32 Heart failure chronicity: chronic Heart failure type: diastolic Elevated erythrocyte sedimentation rate R70.0 Elevated CK R74.8 Transaminitis R74.0
[2019-10-24 10:17] LABS: Creatine Phosphokinase 553 U/L (39-308)
[2019-10-24 11:27] LABS: Basophils % 0.1 %; Eosinophils % 0.1 %; Hematocrit 41.6 % (42.0-52.0); Hemoglobin 13.5 g/dL (11.7-16.6); Lymphocytes # 0.7 10^3/uL (0.8-4.8); Lymphocytes % 5.3 %; Mean Corpuscular HGB Conc 32.5 g/dL (30.0-36.0); Mean Corpuscular Hemoglobin 30.8 pg (28.0-34.0); Mean Corpuscular Volume 94.8 fL (80-94); Mean Platelet Volume 10.8 fL (7.4-10.4); Monocytes # 0.8 10^3/uL (0.2-0.9); Monocytes % 6.1 %; Neutrophils # 11.87 10^3/uL (1.8-7.7); Neutrophils % 87.7 %; Nucleated Red Blood Cells % 0 %; Platelet Count 248 10^3/cmm (130-400); Red Blood Count 4.39 10^6/uL (4.1-5.3); Red Cell Distribution Width 12.4 % (12.1-15.1); White Blood Count 13.5 10^3/uL (4.0-10.0)
[2019-10-24 11:44] LABS: Alanine Aminotransferase 55 U/L (0-41); Albumin Level 2.4 g/dL (3.5-5.2); Alkaline Phosphatase 57 IU/L (40-130); Aspartate Amino Transferase 78 U/L (0-40); Blood Urea Nitrogen 46 mg/dL (8-23); Calcium 8.7 mg/dL (8.5-10.5); Carbon Dioxide 25 mmol/L (22-29); Chloride 105 mmol/L (98-107); Globulin 3.9 g/dL (1.3-4.6); Glucose 193 mg/dL (65-115); Osmolality Calculated 293 mOsm/kg (285-295); Sodium 140 mmol/L (136-145); Total Bilirubin 0.7 mg/dL (0.15-1.2); Total Protein 6.3 g/dL (6.6-8.7)
--- NOTE | 2019-10-24 12:29 | PC.SOCIAL ---
IMM* Patient received a copy, original initialled in the chart.
[2019-10-24 13:47] LABS: Glucose Point of Care 186 mg/dL (70-110)
[2019-10-24 17:13] LABS: Glucose Point of Care 200 mg/dL (70-110)
[2019-10-24 21:57] LABS: Glucose Point of Care 256 mg/dL (70-110)
[2019-10-24 22:02] LABS: Coronavirus Lab Test PTC SEE COMMENTS
[2019-10-25] VITALS (30 sets, daily range): BP systolic 125–175; BP diastolic 65–98; PULSE 51–81; RESP 5–35; TEMP 36.6–36.8; O2SAT 74–95
[2019-10-25] MEDS: piperacillin-tazobactam 3.375 GM in sodium chloride 0.9% (plus) 50 ML IV ×3 (02:13→17:08)
[2019-10-25 02:15] LABS: Glucose Point of Care 189 mg/dL (70-110)
--- NOTE | 2019-10-25 06:00 | XRR_ITS ---
PROCEDURE INFORMATION: Exam: XR Chest, 1 View Exam date and time: 10/24/2019 11:59 PM Age: 73 years old Clinical indication: Dyspnea; Additional info: [place] TECHNIQUE: Imaging protocol: XR of the chest Views: 1 view. COMPARISON: CR XR chest 1V portable [id number] 10/23/2019 7:16 AM FINDINGS: Lungs: There is bilateral airspace disease with a peripheral predominance. This has worsened in the interval. Prior history included COVID-19 pneumonia and this pattern would be consistent with this. Pleural space: No pleural effusion or pneumothorax. Heart/Mediastinum: The cardiac silhouette is not enlarged. The mediastinal contours are normal. Bones/joints: No acute osseous abnormality. XR/XR chest 1V portable [id number] IMPRESSION: Worsening pneumonia.
[2019-10-25 06:01] LABS: Glucose Point of Care 103 mg/dL (70-110)
[2019-10-25 06:50] LABS: Basophils % 0.1 %; Eosinophils % 0.1 %; Hematocrit 40.1 % (42.0-52.0); Hemoglobin 13.2 g/dL (11.7-16.6); Lymphocytes # 0.8 10^3/uL (0.8-4.8); Lymphocytes % 6.1 %; Mean Corpuscular HGB Conc 32.9 g/dL (30.0-36.0); Mean Corpuscular Volume 94.1 fL (80-94); Mean Platelet Volume 10.8 fL (7.4-10.4); Monocytes # 0.9 10^3/uL (0.2-0.9); Monocytes % 7.3 %; Neutrophils # 10.58 10^3/uL (1.8-7.7); Neutrophils % 85.6 %; Nucleated Red Blood Cells % 0 %; Platelet Count 238 10^3/cmm (130-400); Red Blood Count 4.26 10^6/uL (4.1-5.3); Red Cell Distribution Width 12.5 % (12.1-15.1); White Blood Count 12.4 10^3/uL (4.0-10.0)
[2019-10-25 06:52] LABS: Fibrinogen 673 mg/dL (184-529)
[2019-10-25 07:00] LABS: Creatine Phosphokinase 217 U/L (39-308); Lactate Dehydrogenase 483 U/L (135-225)
[2019-10-25 07:01] LABS: Alanine Aminotransferase 45 U/L (0-41); Albumin Level 2.5 g/dL (3.5-5.2); Alkaline Phosphatase 53 IU/L (40-130); Aspartate Amino Transferase 51 U/L (0-40); Blood Urea Nitrogen 41 mg/dL (8-23); Calcium 8.8 mg/dL (8.5-10.5); Carbon Dioxide 27 mmol/L (22-29); Chloride 110 mmol/L (98-107); Globulin 3.1 g/dL (1.3-4.6); Glucose 112 mg/dL (65-115); Osmolality Calculated 296 mOsm/kg (285-295); Sodium 144 mmol/L (136-145); Total Bilirubin 0.5 mg/dL (0.15-1.2); Total Protein 5.6 g/dL (6.6-8.7)
[2019-10-25 07:38] LABS: Erythrocyte Sedimentation Rate 48 mm/hr (0-10)
[2019-10-25] MEDS: dexamethasone 4 mg/mL INJ 3 MG IVP (07:54)
[2019-10-25] MEDS: pantoprazole 40 mg SDV IVP (07:55)
[2019-10-25] MEDS: clopidogrel 75 mg Tablet PO (08:18)
[2019-10-25] MEDS: carvedilol 6.25 mg Tablet PO (08:18)
[2019-10-25] MEDS: insulin glargine 100 units/1 mL 80 UNIT SUBCUT ×2 (08:18→20:43)
[2019-10-25] MEDS: apixaban 5 mg Tablet PO ×2 (08:18→17:07)
[2019-10-25] MEDS: amiodarone 200 mg Tablet PO (08:18)
[2019-10-25] MEDS: ascorbic acid 500 mg Tablet PO (08:18)
[2019-10-25] MEDS: thiamine 100 mg Tablet PO ×2 (08:19→17:08)
[2019-10-25] MEDS: benzonatate 100 mg Capsule PO (08:45)
[2019-10-25] MEDS: albuterol 8 gm MDI 4 PUFF INHALATION ×2 (09:32→20:11)
--- NOTE | 2019-10-25 09:36 | ECG_ITS ---
[facility] ED Test Date: 2019-10-25 Pat Name: Vinh Potts Department: Room: ICU19 Gender: Male Internal Sales: : 1945 Requested By: George Dobson Order Number: [id number] Mekhi MD: Mainor Zhu M.D. Measurements Intervals Reserve Rate: 62 P: OK: -1 QRS: -24 QRSD: 93 T: 14 QT: 380 QTc: 387 Interpretive Statements ATRIAL FIBRILLATION LOW QRS VOLTAGE IN PRECORDIAL LEADS [QRS DEFLECTION < 1.0 mV IN CHEST LEADS] Compared to ECG 10/20/2019 04:09:28 Low QRS voltage now present T-wave abnormality no longer present Electronically Signed On 10-25-2019 22:03:20 CDT by Mainor Zhu M.D. [id number] yecenia
[2019-10-25 10:23] LABS: ABG PCO2 35.1 mmHg (35-45); ABG PH Result 7.46 (7.35-7.45); Base Excess ABG 1.7 mmol/L (-2.0-2.0); Blood Gas Allen Test Pos; Blood Gas Sample Site Radial, right; Blood Gas Sample Type Arterial; Carboxyhemoglobin 0.3 %THgb (0.4-20.1); HCO3 ABG 25.1 mmol/L (22-26); HGB O2 Sat 91.7 % (95-100); Ionized Calcium Level - ABG 1.2 mmol/L (1.1-1.4); Methemoglobin 0.4 % (0.4-1.5); Oxygen Saturation ABG 92.4; PO2 ABG 59.9 mmHg (80.0-100.0); Potassium Level - ABG 3.8 mmol/L (3.5-5.0); Total Hemoglobin 14.7 g/dL (14-18)
[2019-10-25 10:35] LABS: Glucose Point of Care 79 mg/dL (70-110)
[2019-10-25 16:51] LABS: Glucose Point of Care 234 mg/dL (70-110)
--- NOTE | 2019-10-25 18:34 | PC.NURSE ---
Today pt has done well, he has sat up in the chair from breakfast to dinner, he has had two BM marisabel loose. He has gotten up to the BSC with very little assistance, his output was 1,000. His pulse has dropped down to the upper 40's a few times today, Dr Hinds was notified, the rest of his VS have all been WNL. his oxygen has been 90-94 on 30L at 47.5%
--- NOTE | 2019-10-25 19:15 | P.PN_ITS ---
Subjective Subjective: Interval history: Seen multiple times today both [facility] and personally. Patient doing better. No acute events overnight other than few episodes of bradycardia when his heart rate went down into the low 50s. Patient was asymptomatic. Today patient is on 30 L 50% FiO2 for most of the day. He is been saturating more than 92%. He is comfortable. He states his energy levels are good. Denies having nausea, vomiting, headache, dizziness. His cough is getting bet ter as well. Vitals/I&O/Wt Last Vital Signs Temp 98.2 F 10/25/19 16:00 Pulse 59 L 10/25/19 16:00 Resp 18 10/25/19 16:00 BP 167/89 10/25/19 16:00 Pulse Ox 92 10/25/19 16:00 10/25/19 10/25/19 10/25/19 06:59 14:59 22:59 Intake Total 50 / 1390 770 / 770 300 / 1070 Output Total 300 / 1300 1000 / 1000 Balance -250 / 90 770 / 770 -700 / 70 Weight last 48 hrs Weight 104.598 kg Physical Exam Narrative: EXAM NARRATIVE: General: No acute distress, AO x3, mildly tachypneic, looking tired but better than yesterday. HEENT: PERRLA, pupils bilaterally equal and reactive Chest: Bronchial breath sounds on most of the lung castro anterior more than posterior, coarse crackles present in right upper and middle zone, equal air entry bilaterally, poor inspiration effort. CVS: S1-S2 regular, no murmurs, tachycardia, no gallops, no rubs Abdomen: Soft, nontender, no organomegaly, bowel sounds present Neuro: No focal deficits, no facial deformity, AO x3, power 5/5 in all limbs Urinary Catheter Management^: Blandon: Cath Placed During This Visit: yes Reason for Continuing Indwelling Catheter: Accurate Measurement of Urinary Output in Critically Ill Patients Urinary Catheter Date of Insertion: 10/20/19 Urinary Catheter Time of Insertion: 10:45 Data : 10/25/19 05:42 10/25/19 05:42 A&P Assessment and plan (1) COVID-19: Status: Acute (2) ARDS (adult respiratory distress syndrome): Status: Acute (3) Acute respiratory failure with hypoxia: Status: Acute (4) Pulmonary hypertension: Status: Acute (5) Community acquired pneumonia: As above. Status: Acute (6) Atrial fibrillation: Status: Acute Qualifiers: Atrial fibrillation type: longstanding persistent Qualified Code(s): I48.11 - Longstanding persistent atrial fibrillation (7) Acute kidney injury superimposed on CKD: Stage III chronic disease. Baseline creatinine appears around 2. Monitor renal function, urine output. Hold lisinopril for now. Status: Acute (8) Diabetes: Status: Acute Qualifiers: Diabetes mellitus type: type 2 Diabetes mellitus care home insulin use: with termite renewal inspector use Diabetes mellitus complication status: with hyperglycemia Qualified Code(s): E11.65 - Type 2 diabetes mellitus with hyperglycemia; Z79.4 - care home (current) use of insulin (9) CAD (coronary artery disease): Status: Acute Qualifiers: Coronary Disease-Associated Artery/Lesion type: [place] artery [place] s. transplanted heart: [place] heart Associated angina: without angina Qualified Code(s): I25.10 - Atherosclerotic heart disease of [place] coronary artery without angina pectoris (10) Hypertension: Status: Acute Qualifiers: Hypertension type: essential hypertension Qualified Code(s): I10 - Essential (primary) hypertension (11) Hyperlipidemia: Status: Acute Qualifiers: Hyperlipidemia type: mixed hyperlipidemia Qualified Code(s): E78.2 - Mixed hyperlipidemia (12) CHF (congestive heart failure): Status: Acute Qualifiers: Heart failure type: diastolic Heart failure chronicity: chronic Qualified Code(s): I50.32 - Chronic diastolic (congestive) heart failure (13) Elevated erythrocyte sedimentation rate: Unclear reason obvious elevation at this time. Will request for CRP. Status: Acute (14) Elevated CK: Suspect may be mild rhabdomyolysis secondary to statin. Hold statin for now. Recheck. Monitor renal function. Status: Acute (15) Transaminitis: Mild transaminitis. Will hold statin for now. Recheck. Consider that he is also on amiodarone if there is no improvement. Status: Acute Additional A&P Information ARDS: COVID-19: Acute hypoxic respiratory failure: Continue with contact and droplet precautions. Patient got first dose of Remdesevir yesterday. Day 5 of dose today. Will most likely try to continue for 7 days. We will confirm with pharmacy if more medication could be made available. Continue to follow inflammatory markers including ESR, CRP, ferritin, LDH, d- dimer every other day. ESR trending down, fibrinogen stable, ferritin trending down, CPK normalized, LDH stable. Spiriva, Advair. Incentive spirometry. Tessalon Perles as needed. Patient has finished 5 days of Decadron. Decrease Decadron to 3 mg IV daily. If patient's oxygen requirement increasing can increase the dose to 6 mg again. We will start patient on thiamine 100 mg oral twice daily, ascorbic acid 500 mg daily because of poor renal functions, zinc daily. We will start patient on chest vest, incentive spirometry, Acapella. Given ARDS would like to keep patient on negative side. Patient is overall 4 L negative since admission. For possible superimposed bacterial infection we will continue with vancomycin and Zosyn. Check MRSA swab, sputum culture, bacterial antigen. Day 6/7 of treatment. If patient continues to do well can plan to discontinue antibiotics tomorrow and monitor. Patient is DNR/DNI. Discussed as above regarding potential transfer to higher center if patient have denied at present. Will discuss again if not able to get the medication. Hypertension: Patient is on lisinopril, Coreg, amlodipine. Goal blood pressure less than 140/90 mmHg. Keep mean arterial pressure over 65 mmHg. Blood pressures on the higher side now. We will start patient on home dose of amlodipine. We will continue to hold her lisinopril. Decreasing dose of Coreg because of episodes of bradycardia. Rhabdomyolysis: Resolved. Most likely because of increased work of breathing. We will have to keep her flat drier because of ARDS. Continue lower dose of Lasix. History of CAD: No chest pain at present. Continue with home dose of Plavix and statin. CKD: Baseline creatinine around 2. Creatinine better today. Electrolytes stable. No sign of metabolic acidosis. Atrial fibrillation: Rate controlled at present. Continue with Eliquis at current dose. It would also help with potential thromboembolic/thrombophilic response of COVID-19. Coreg dose to be decreased 3.125 mg BID. History of CHF: Repeat echocardiogram results appreciated. Normal EF with mild grade 1 diastolic dysfunction and no pulmonary hypertension. Continue with home dose of Lasix 40 mg daily. Patient is overall 4 L negative. Diabetes mellitus: Difficult to control blood sugars at present because of IV Decadron. Blood work not consistent with DKA.At home patient takes Levemir 72 units at bedtime. Sugars better today with decreased dose of Decadron Continue Levemir 80 units twice daily along with insulin at high-dose before meals and at bedtime. Continue with carb consistent cardiac diet. Eliquis will help with DVT prophylaxis as well. DNR/DNI Severely Gaurded prognosis Attestations Medical Necessity Statement*: ARDS, COVID-19 pneumonia Time Spent in Patient Care: Greater than 35 minutes (>than 50% of time spent in counselling and/or direct pt care on unit) . Coding Level of Care Code Acute Basket Patcher for [facility] Diagnoses COVID-19 U07.1 ARDS (adult respiratory distress syndrome) J80 Acute respiratory failure with hypoxia J96.01 Pulmonary hypertension I27.20 Community acquired pneumonia J18.9 Atrial fibrillation I48.11 Atrial fibrillation type: longstanding persistent Acute kidney injury superimposed on CKD N17.9; N18.9 Diabetes E11.65; Z79.4 Diabetes mellitus type: type 2 Diabetes mellitus termite renewal inspector insulin use: with termite renewal inspector use Diabetes mellitus complication status: with hyperglycemia CAD (coronary artery disease) I25.10 Coronary Disease-Associated Artery/Lesion type: [place] artery [place] vs. transplanted heart: [place] heart Associated angina: without angina Hypertension I10 Hypertension type: essential hypertension Hyperlipidemia E78.2 Hyperlipidemia type: mixed hyperlipidemia CHF (congestive heart failure) I50.32 Heart failure type: diastolic Heart failure chronicity: chronic Elevated erythrocyte sedimentation rate R70.0 Elevated CK R74.8 Transaminitis R74.0
[2019-10-25 20:03] LABS: C Reactive Protein 33.9 mg/L (0.0-4.9)
[2019-10-25 20:25] LABS: Glucose Point of Care 227 mg/dL (70-110)
[2019-10-26] VITALS (25 sets, daily range): BP systolic 133–199; BP diastolic 63–115; PULSE 54–91; RESP 14–32; TEMP 36.5–36.6; O2SAT 81–95
[2019-10-26] MEDS: piperacillin-tazobactam 3.375 GM in sodium chloride 0.9% (plus) 50 ML IV ×3 (01:08→16:02)
[2019-10-26 05:43] LABS: Basophils % 0.1 %; Eosinophils % 0.1 %; Hematocrit 40.6 % (42.0-52.0); Hemoglobin 13.2 g/dL (11.7-16.6); Lymphocytes # 0.7 10^3/uL (0.8-4.8); Lymphocytes % 5.9 %; Mean Corpuscular HGB Conc 32.5 g/dL (30.0-36.0); Mean Corpuscular Hemoglobin 30.4 pg (28.0-34.0); Mean Corpuscular Volume 93.5 fL (80-94); Mean Platelet Volume 10.9 fL (7.4-10.4); Monocytes # 0.8 10^3/uL (0.2-0.9); Monocytes % 6.6 %; Neutrophils # 10.46 10^3/uL (1.8-7.7); Neutrophils % 86.2 %; Nucleated Red Blood Cells % 0 %; Platelet Count 267 10^3/cmm (130-400); Red Blood Count 4.34 10^6/uL (4.1-5.3); Red Cell Distribution Width 12.3 % (12.1-15.1); White Blood Count 12.1 10^3/uL (4.0-10.0)
[2019-10-26 05:53] LABS: D Dimer 1.18 ug/mIFEU (0-0.59)
[2019-10-26 06:09] LABS: Alanine Aminotransferase 42 U/L (0-41); Albumin Level 2.4 g/dL (3.5-5.2); Alkaline Phosphatase 59 IU/L (40-130); Anion Gap 11.1 (5-19); Aspartate Amino Transferase 41 U/L (0-40); Blood Urea Nitrogen 36 mg/dL (8-23); Calcium 8.5 mg/dL (8.5-10.5); Carbon Dioxide 25 mmol/L (22-29); Chloride 110 mmol/L (98-107); Globulin 3.3 g/dL (1.3-4.6); Glucose 90 mg/dL (65-115); Osmolality Calculated 291 mOsm/kg (285-295); Potassium 4.1 mmol/L (3.5-5.1); Sodium 142 mmol/L (136-145); Total Bilirubin 0.6 mg/dL (0.15-1.2); Total Protein 5.7 g/dL (6.6-8.7)
[2019-10-26] MEDS: albuterol 8 gm MDI 4 PUFF INHALATION (07:47)
[2019-10-26 08:28] LABS: Glucose Point of Care 72 mg/dL (70-110)
[2019-10-26] MEDS: ascorbic acid 500 mg Tablet PO (08:44)
[2019-10-26] MEDS: carvedilol 3.125 mg Tablet PO ×2 (08:45→16:02)
[2019-10-26] MEDS: amlodipine 10 mg Tablet PO (08:46)
[2019-10-26] MEDS: pantoprazole 40 mg SDV IVP (08:48)
[2019-10-26] MEDS: thiamine 100 mg Tablet PO ×2 (08:48→16:03)
[2019-10-26] MEDS: insulin glargine 100 units/1 mL 80 UNIT SUBCUT (08:49)
[2019-10-26] MEDS: dexamethasone 4 mg/mL INJ 3 MG IVP (08:50)
[2019-10-26] MEDS: benzonatate 100 mg Capsule PO ×2 (09:07→16:03)
[2019-10-26] MEDS: amiodarone 200 mg Tablet PO (10:32)
[2019-10-26] MEDS: apixaban 5 mg Tablet PO ×2 (10:32→16:01)
[2019-10-26] MEDS: clopidogrel 75 mg Tablet PO (10:33)
[2019-10-26 11:22] LABS: Glucose Point of Care 207 mg/dL (70-110)
--- NOTE | 2019-10-26 12:39 | PC.SOCIAL ---
IMM Updated Attempted to reach patient's family by phone to explain IMM, but had to leave a voicemail. Called [facility] and spoke with Rhonda, who states she will initial the page 2 IMM in the chart and make patient a copy. Explained to Rhonda what IMM is so that she can relay this information to the patient.
[2019-10-26 13:09] LABS: Oxygen Device HHF
[2019-10-26 16:40] LABS: Glucose Point of Care 174 mg/dL (70-110)
--- NOTE | 2019-10-26 17:34 | PC.NURSE ---
PATIENT IS CURRENTLY AT 25/ 40 ON THE HEATED HIGH FLOW. SATS AROUND 90 %. HE BRUSHED HIS TEETH AND SHAVED TODAY.
--- NOTE | 2019-10-26 18:01 | P.PN_ITS ---
Subjective Subjective: Interval history: Vinh reports that he is doing okay. He feels better and stronger than yesterday. He was able to stand for a while. Medications: Reviewed: Yes Vitals/I&O/Wt Last Vital Signs Temp 97.9 F 10/26/19 08:00 Pulse 57 L 10/26/19 17:00 Resp 28 H 10/26/19 17:00 BP 160/82 10/26/19 17:00 Pulse Ox 92 10/26/19 17:00 10/26/19 10/26/19 10/26/19 06:59 14:59 22:59 Intake Total 50 / 1420 1320 / 1320 600 / 1920 Output Total 900 / 1900 900 / 900 Balance -850 / -480 1320 / 1320 -300 / 1020 Physical Exam Narrative: EXAM NARRATIVE: General exam no apparent distress Cardiovascular regular rate and rhythm without murmur Lungs a few crackles Abdomen is soft with positive bowel sounds Extremities no cyanosis or clubbing Urinary Catheter Management^: Blandon: Cath Placed During This Visit: yes Reason for Continuing Indwelling Catheter: Accurate Measurement of Urinary Output in Critically Ill Patients Urinary Catheter Date of Insertion: 10/20/19 Urinary Catheter Time of Insertion: 10:45 Data : 10/26/19 04:40 10/26/19 04:40 Micro: Microbiology 10/21/19 12:30 Blood Culture - Final Blood NO GROWTH AFTER 5 DAYS 10/21/19 12:45 Blood Culture - Final Blood NO GROWTH AFTER 5 DAYS A&P Assessment and plan (1) COVID-19: Continues to slowly wean from oxygen He has completed his Remdisovir and dexamethasone Status: Acute (2) ARDS (adult respiratory distress syndrome): Slow improvement Status: Acute (3) Acute respiratory failure with hypoxia: Status: Acute (4) Pulmonary hypertension: Status: Acute (5) Community acquired pneumonia: Currently on vancomycin and Zosyn Consider discontinuing antibiotics after today's dosages Status: Acute (6) Atrial fibrillation: Rate controlled Continue amiodarone Carvedilol dose was reduced secondary to bradycardia Status: Acute Qualifiers: Atrial fibrillation type: longstanding persistent Qualified Code(s): I48.11 - Longstanding persistent atrial fibrillation (7) Acute kidney injury superimposed on CKD: Renal function stable Lisinopril discontinued secondary to concerns of worsening renal function while in the hospital. Status: Acute (8) Diabetes: Continue sliding scale insulin Status: Acute Qualifiers: Diabetes mellitus type: type 2 Diabetes mellitus commissioning manager insulin use: with prison use Diabetes mellitus complication status: with hyperglycemia Qualified Code(s): E11.65 - Type 2 diabetes mellitus with hyperglycemia; Z79.4 - pill packer (current) use of insulin (9) CAD (coronary artery disease): Asymptomatic Status: Acute Qualifiers: Coronary Disease-Associated Artery/Lesion type: [place] artery [place] vs. transplanted heart: [place] heart Associated angina: without angina Qualified Code(s): I25.10 - Atherosclerotic heart disease of [place] coronary artery without angina pectoris (10) Hypertension: Fair control Status: Acute Qualifiers: Hypertension type: essential hypertension Qualified Code(s): I10 - Essential (primary) hypertension (11) Hyperlipidemia: Status: Acute Qualifiers: Hyperlipidemia type: mixed hyperlipidemia Qualified Code(s): E78.2 - Mixed hyperlipidemia (12) CHF (congestive heart failure): Compensated currently Status: Acute Qualifiers: Heart failure type: diastolic Heart failure chronicity: chronic Qualified Code(s): I50.32 - Chronic diastolic (congestive) heart failure (13) Elevated CK: Statin held secondary to mild rhabdo on admission Status: Acute (14) Transaminitis: Likely secondary to COVID Status: Acute Additional A&P Information Allow natural Eliquis will suffice for DVT prophylaxis Consideration of discontinuing Blandon after bladder training Attestations Medical Necessity Statement*: Needs continued hospitalization secondary to high FiO2 requirements with COVID infection. Coding Level of Care Code [facility] COVID-19 U07.1 ARDS (adult respiratory distress syndrome) J80 Acute respiratory failure with hypoxia J96.01 Pulmonary hypertension I27.20 Community acquired pneumonia J18.9 Atrial fibrillation I48.11 Atrial fibrillation type: longstanding persistent Acute kidney injury superimposed on CKD N17.9; N18.9 Diabetes E11.65; Z79.4 Diabetes mellitus type: type 2 Diabetes mellitus prison insulin use: with commissioning manager use Diabetes mellitus complication status: with hyperglycemia CAD (coronary artery disease) I25.10 Coronary Disease-Associated Artery/Lesion type: [place] artery [place] vs. transplanted heart: [place] heart Associated angina: without angina Hypertension I10 Hypertension type: essential hypertension Hyperlipidemia E78.2 Hyperlipidemia type: mixed hyperlipidemia CHF (congestive heart failure) I50.32 Heart failure type: diastolic Heart failure chronicity: chronic Elevated CK R74.8 Transaminitis R74.0
[2019-10-26 20:27] LABS: Glucose Point of Care 100 mg/dL (70-110)
[2019-10-26] MEDS: insulin glargine 100 units/1 mL 40 UNIT SUBCUT (20:45)
[2019-10-27] VITALS (22 sets, daily range): BP systolic 110–168; BP diastolic 69–112; PULSE 58–90; RESP 4–31; TEMP 36.6–36.8; O2SAT 86–95
[2019-10-27] MEDS: piperacillin-tazobactam 3.375 GM in sodium chloride 0.9% (plus) 50 ML IV ×2 (01:02→10:34)
[2019-10-27 01:05] LABS: Glucose Point of Care 80 mg/dL (70-110)
[2019-10-27 05:32] LABS: Basophils % 0.2 %; Eosinophils # 0.1 10^3/uL (0.0-0.8); Eosinophils % 0.3 %; Hematocrit 41.4 % (42.0-52.0); Hemoglobin 13.5 g/dL (11.7-16.6); Lymphocytes # 1.1 10^3/uL (0.8-4.8); Lymphocytes % 7.5 %; Mean Corpuscular HGB Conc 32.6 g/dL (30.0-36.0); Mean Corpuscular Hemoglobin 30.8 pg (28.0-34.0); Mean Corpuscular Volume 94.5 fL (80-94); Mean Platelet Volume 10.5 fL (7.4-10.4); Monocytes % 6.8 %; Neutrophils # 11.94 10^3/uL (1.8-7.7); Neutrophils % 83.5 %; Nucleated Red Blood Cells % 0 %; Platelet Count 315 10^3/cmm (130-400); Red Blood Count 4.38 10^6/uL (4.1-5.3); Red Cell Distribution Width 12.5 % (12.1-15.1); White Blood Count 14.3 10^3/uL (4.0-10.0)
[2019-10-27 05:46] LABS: Fibrinogen 585 mg/dL (184-529)
[2019-10-27 06:11] LABS: Lactate Dehydrogenase 491 U/L (135-225)
[2019-10-27 06:14] LABS: Alanine Aminotransferase 38 U/L (0-41); Albumin Level 2.4 g/dL (3.5-5.2); Alkaline Phosphatase 54 IU/L (40-130); Anion Gap 11.2 (5-19); Aspartate Amino Transferase 38 U/L (0-40); Blood Urea Nitrogen 33 mg/dL (8-23); Calcium 8.5 mg/dL (8.5-10.5); Carbon Dioxide 24 mmol/L (22-29); Chloride 110 mmol/L (98-107); Globulin 3.4 g/dL (1.3-4.6); Glucose 53 mg/dL (65-115); Osmolality Calculated 287 mOsm/kg (285-295); Potassium 4.2 mmol/L (3.5-5.1); Sodium 141 mmol/L (136-145); Total Bilirubin 0.6 mg/dL (0.15-1.2); Total Protein 5.8 g/dL (6.6-8.7)
[2019-10-27] MEDS: albuterol 8 gm MDI 4 PUFF INHALATION ×2 (07:25→20:26)
[2019-10-27 07:30] LABS: Erythrocyte Sedimentation Rate 45 mm/hr (0-10)
--- NOTE | 2019-10-27 07:44 | PC.NURSE ---
BSG 48 Patient aaox3, drowsy, tired, weak. Patient given tray of food along with sugar packet and orange juice. Will recheck glucose in 30 minutes. Insulin not given. Notified.
[2019-10-27 07:46] LABS: Glucose Point of Care 47 mg/dL (70-110)
[2019-10-27] MEDS: amiodarone 200 mg Tablet PO (09:04)
[2019-10-27] MEDS: amlodipine 10 mg Tablet PO (09:05)
[2019-10-27] MEDS: carvedilol 3.125 mg Tablet PO ×2 (09:05→17:35)
[2019-10-27] MEDS: apixaban 5 mg Tablet PO ×2 (09:05→17:35)
[2019-10-27] MEDS: ascorbic acid 500 mg Tablet PO (09:05)
[2019-10-27] MEDS: pantoprazole 40 mg SDV IVP (09:06)
[2019-10-27] MEDS: thiamine 100 mg Tablet PO ×2 (09:06→17:36)
[2019-10-27] MEDS: clopidogrel 75 mg Tablet PO (09:06)
[2019-10-27] MEDS: insulin glargine 100 units/1 mL 10 UNIT SUBCUT (09:58)
[2019-10-27 10:35] LABS: Glucose Point of Care 107 mg/dL (70-110)
[2019-10-27 10:41] LABS: Vancomycin Trough 10.9 ug/mL (10-15)
[2019-10-27 12:43] LABS: Glucose Point of Care 202 mg/dL (70-110)
--- NOTE | 2019-10-27 12:57 | PC.NURSE ---
Addendum entered by Kenneth Dsouza RN 10/27/19 18:02: NO PLAVIX Taken off of plavix by Dr. Charlton. Original Note: NO PLAVIX Patient reports he doesn't take plavix, that Dr. Zhu took him off of this and put him on Eliquis. Patient refused medication. Will notify
--- NOTE | 2019-10-27 17:03 | P.PN_ITS ---
Subjective Subjective: Interval history: States he feels about the same. Medications: Reviewed: Yes Vitals/I&O/Wt Last Vital Signs Temp 98.2 F 10/27/19 14:00 Pulse 68 10/27/19 14:00 Resp 25 H 10/27/19 14:00 BP 149/84 10/27/19 14:00 Pulse Ox 93 10/27/19 14:00 10/27/19 10/27/19 10/27/19 06:59 14:59 22:59 Intake Total 110 / 2140 680 / 680 Output Total 950 / 1850 Balance -840 / 290 680 / 680 Physical Exam Narrative: EXAM NARRATIVE: General exam no apparent distress Cardiovascular regular rate and rhythm without murmur Lungs a few crackles Abdomen is soft with positive bowel sounds Extremities no cyanosis or clubbing Urinary Catheter Management^: Blandon: Cath Placed During This Visit: yes Reason for Continuing Indwelling Catheter: Accurate Measurement of Urinary Output in Critically Ill Patients Urinary Catheter Date of Insertion: 10/20/19 Urinary Catheter Time of Insertion: 10:45 Data : 10/27/19 03:40 10/27/19 03:40 Micro: Microbiology 10/21/19 12:30 Blood Culture - Final Blood NO GROWTH AFTER 5 DAYS 10/21/19 12:45 Blood Culture - Final Blood NO GROWTH AFTER 5 DAYS A&P Assessment and plan (1) COVID-19: Continues to slowly wean from oxygen Still on 45% FiO2 by high flow currently He has completed his Remdisovir and dexamethasone Fibrinogen level is decreasing. LDH essentially unchanged Lab holiday tomorrow. Status: Acute (2) ARDS (adult respiratory distress syndrome): Slow improvement Status: Acute (3) Acute respiratory failure with hypoxia: It appears he may be slowly improving. Status: Acute (4) Pulmonary hypertension: Status: Acute (5) Community acquired pneumonia: He is completed 7 days of vancomycin and Zosyn. Note that his MRSA PCR was negative of his nares. Discontinue IV antibiotics today. Status: Acute (6) Atrial fibrillation: Rate controlled Continue amiodarone Carvedilol dose was reduced secondary to bradycardia Status: Acute Qualifiers: Atrial fibrillation type: longstanding persistent Qualified Code(s): I48.11 - Longstanding persistent atrial fibrillation (7) Acute kidney injury superimposed on CKD: Renal function stable Lisinopril discontinued secondary to concerns of worsening renal function while in the hospital. Status: Acute (8) Diabetes: Continue sliding scale insulin He had hypoglycemia this morning. Blood sugar drastically reduced secondary to discontinuation of steroids. Change to mild sliding scale insulin Reduce Lantus to 10 units Continue to follow sugars closely Status: Acute Qualifiers: Diabetes mellitus type: type 2 Diabetes mellitus [facility] insulin use: with tank terminal gauger use Diabetes mellitus complication status: with hyperglycemia Qualified Code(s): E11.65 - Type 2 diabetes mellitus with hyperglycemia; Z79.4 - termination clerk (current) use of insulin (9) CAD (coronary artery disease): Asymptomatic Status: Acute Qualifiers: Coronary Disease-Associated Artery/Lesion type: [place] artery [place] vs. transplanted heart: [place] heart Associated angina: without angina Q ualified Code(s): I25.10 - Atherosclerotic heart disease of [place] coronary artery without angina pectoris (10) Hypertension: Fair control Status: Acute Qualifiers: Hypertension type: essential hypertension Qualified Code(s): I10 - Essential (primary) hypertension (11) Hyperlipidemia: Status: Acute Qualifiers: Hyperlipidemia type: mixed hyperlipidemia Qualified Code(s): E78.2 - Mixed hyperlipidemia (12) CHF (congestive heart failure): Compensated currently Status: Acute Qualifiers: Heart failure type: diastolic Heart failure chronicity: chronic Qualified Code(s): I50.32 - Chronic diastolic (congestive) heart failure (13) Elevated CK: Statin held secondary to mild rhabdo on admission Status: Acute (14) Transaminitis: Likely secondary to COVID Status: Acute Additional A&P Information Allow natural Eliquis will suffice for DVT prophylaxis Discontinue Blandon today. If cannot urinate may need to replace. No need for laboratory tomorrow Attestations Medical Necessity Statement*: Needs continued hospitalization secondary to high FiO2 requirement with Covid 19 infection. Coding Level of Care Code Acute Hotel Or Motel Room Service Supervisor for [facility] Diagnoses COVID-19 U07.1 ARDS (adult respiratory distress syndrome) J80 Acute respiratory failure with hypoxia J96.01 Pulmonary hypertension I27.20 Community acquired pneumonia J18.9 Atrial fibrillation I48.11 Atrial fibrillation type: longstanding persistent Acute kidney injury superimposed on CKD N17.9; N18.9 Diabetes E11.65; Z79.4 Diabetes mellitus type: type 2 Diabetes mellitus [facility] insulin use: with tank terminal gauger use Diabetes mellitus complication status: with hyperglycemia CAD (coronary artery disease) I25.10 Coronary Disease-Associated Artery/Lesion type: [place] artery [place] vs. transplanted heart: [place] heart Associated angina: without angina Hypertension I10 Hypertension type: essential hypertension Hyperlipidemia E78.2 Hyperlipidemia type: mixed hyperlipidemia CHF (congestive heart failure) I50.32 Heart failure type: diastolic Heart failure chronicity: chronic Elevated CK R74.8 Transaminitis R74.0
[2019-10-27 17:35] LABS: Glucose Point of Care 103 mg/dL (70-110)
--- NOTE | 2019-10-27 17:46 | PC.NURSE ---
Blandon Out Blandon removed. Patient educated on reporting urge to urinate, using urinal, and that nurse will assess bladder function throughout night to assess for need of another catheter. Patient gives verbal understanding.
[2019-10-27 20:59] LABS: Glucose Point of Care 80 mg/dL (70-110)
[2019-10-28] VITALS (38 sets, daily range): BP systolic 133–164; BP diastolic 64–100; PULSE 67–88; RESP 5–40; TEMP 36.3–36.8; O2SAT 85–95; BMI 37.3
[2019-10-28] MEDS: thiamine 100 mg Tablet PO ×2 (07:27→15:57)
[2019-10-28] MEDS: amlodipine 10 mg Tablet PO (07:28)
[2019-10-28] MEDS: amiodarone 200 mg Tablet PO (07:29)
[2019-10-28] MEDS: carvedilol 3.125 mg Tablet PO ×2 (07:29→15:56)
[2019-10-28] MEDS: pantoprazole DR 40 mg Tablet PO (07:31)
[2019-10-28] MEDS: clopidogrel 75 mg Tablet PO (07:32)
[2019-10-28] MEDS: ascorbic acid 500 mg Tablet PO (07:32)
[2019-10-28] MEDS: apixaban 5 mg Tablet PO ×2 (07:35→15:58)
[2019-10-28] MEDS: albuterol 8 gm MDI 4 PUFF INHALATION (08:10)
[2019-10-28] MEDS: insulin glargine 100 units/1 mL 10 UNIT SUBCUT (09:41)
[2019-10-28] MEDS: benzonatate 100 mg Capsule PO ×2 (09:43→15:55)
[2019-10-28] MEDS: FUROsemide 10 mg/mL SDV 2mL 20 MG IVP (10:52)
[2019-10-28 10:57] LABS: Glucose Point of Care 85 mg/dL (70-110)
[2019-10-28 11:08] LABS: Glucose Point of Care 126 mg/dL (70-110)
[2019-10-28] MEDS: loperamide 2 mg Capsule PO (13:28)
--- NOTE | 2019-10-28 13:57 | PC.NURSE ---
NOTABLE STAMINA INCREASE, ALTHOUGH HE CANT MAINTAIN A SAT OVER 90, HIS DROP IS ONLY TO 87 OR 88 AND HE RECOVERS IN A SHORTER TIME THAN ON SATURDAY. EATING WELL. VOIDING FREQUENTLY WITH THE LASIX. HIS STOOLS WERE LOOSE AND MUCOUS LIKE. AND HE HAD 7 SINCE 0700. STOOL WAS NEG THE OTHER DAY FOR ISSUES SO LOMOTIL ORDER WAS TAKEN. NO ORDER YET FOR NEW COVID SWAB. SWOLLEN FACE AND FEET WITH COARSE AND WHEEZING BREATH SOUNDS REPORTED TO DR THAO, LASIX GIVEN, BREATHING EXERCISES ENCOURAGED AND PERFORMED. IS UP TO 600 REACHED. WE BRUSHED TEETH, I WASHED HIS BACK AND HE DID HIS FACE AND SHAVED. ALOEVESTA BARRIER CREAM TO JUST OUTSIDE HIS NOSE, SKIN IS TENDER.
[2019-10-28 16:14] LABS: Glucose Point of Care 280 mg/dL (70-110)
--- NOTE | 2019-10-28 17:06 | DCPLANNER ---
Pt still in Covid Unit. We will discuss the IM with him when we can.
--- NOTE | 2019-10-28 18:02 | P.PN_ITS ---
Subjective Subjective: Interval history: No specific complaints. Feels about the same as yesterday. Still occasional cough. Was given a small dose of Lasix this morning as he appeared to have a slight amount of fluid overload. Medications: Reviewed: Yes Vitals/I&O/Wt Last Vital Signs Temp 98.2 F 10/28/19 17:00 Pulse 76 10/28/19 17:00 Resp 29 H 10/28/19 17:00 BP 154/100 10/28/19 17:00 Pulse Ox 89 L 10/28/19 17:00 10/28/19 10/28/19 10/28/19 06:59 14:59 22:59 Intake Total 450 / 1370 780 / 780 600 / 1380 Output Total 600 / 1350 325 / 325 550 / 875 Balance -150 / 20 455 / 455 50 / 505 Weight last 48 hrs Weight 114.787 kg Physical Exam Narrative: EXAM NARRATIVE: General exam no apparent distress Cardiovascular regular rate and rhythm without murmur Lungs a few crackles Abdomen is soft with positive bowel sounds Extremities no cyanosis or clubbing Urinary Catheter Management^: Blandon: Cath Placed During This Visit: yes, but has since been removed by the nurse Reason for Continuing Indwelling Catheter: Decision to DC Catheter Urinary Catheter Date of Insertion: 10/20/19 Urinary Catheter Time of Insertion: 10:45 Date Urinary Catheter Removed: 10/27/19 Time Urinary Catheter Discontinued: 08:00 Data : 10/27/19 03:40 10/27/19 03:40 A&P Assessment and plan (1) COVID-19: Continues to slowly wean from oxygen Now on 43 % FiO2 by high flow currently He has completed his Remdisovir and dexamethasone Repeat laboratory tomorrow I suspect it will be quite some time before he weans completely from oxygen. Consider repeat Covid 19 test end of this week Status: Acute (2) ARDS (adult respiratory distress syndrome): Slow improvement Status: Acute (3) Acute respiratory failure with hypoxia: It appears he may be slowly improving. Status: Acute (4) Pulmonary hypertension: Status: Acute (5) Community acquired pneumonia: He is completed 7 days of vancomycin and Zosyn. Note that his MRSA PCR was negative of his nares. IV antibiotics were discontinued on October 26 Status: Acute (6) Atrial fibrillation: Rate controlled Continue amiodarone Carvedilol dose was reduced secondary to bradycardia Status: Acute Qualifiers: Atrial fibrillation type: longstanding persistent Qualified Code(s): I48.11 - Longstanding persistent atrial fibrillation (7) Acute kidney injury superimposed on CKD: Renal function stable Lisinopril discontinued secondary to concerns of worsening renal function while in the hospital. Status: Acute (8) Diabetes: Continue sliding scale insulin He had hypoglycemia this morning. Blood sugar drastically reduced secondary to discontinuation of steroids. Change to mild sliding scale insulin Reduce Lantus to 10 units Continue to follow sugars closely Status: Acute Qualifiers: Diabetes mellitus type: type 2 Diabetes mellitus termite control representative insulin use: with residential use Diabetes mellitus complication status: with hyperglycemia Qualified Code(s): E11.65 - Type 2 diabetes mellitus with hyperglycemia; Z79.4 - lobsterman (current) use of insulin (9) CAD (coronary artery disease): Asymptomatic Status: Acute Qualifiers: Coronary Disease-Associated Artery/Lesion type: [place] artery [place] vs. transplanted heart: [place] heart Associated angina: without angina Qualified Code(s): I25.10 - Atherosclerotic heart disease of [place] coronary artery without angina pectoris (10) Hypertension: Fair control Status: Acute Qualifiers: Hypertension type: essential hypertension Qualified Code(s): I10 - Essential (primary) hypertension (11) Hyperlipidemia: Status: Acute Qualifiers: Hyperlipidemia type: mixed hyperlipidemia Qualified Code(s): E78.2 - Mixed hyperlipidemia (12) CHF (congestive heart failure): Compensated currently Status: Acute Qualifiers: Heart failure type: diastolic Heart failure chronicity: chronic Qualified Code(s): I50.32 - Chronic diastolic (congestive) heart failure (13) Elevated CK: Statin held secondary to mild rhabdo on admission Status: Acute (14) Transaminitis: Likely secondary to COVID Status: Acute Additional A&P Information Allow natural Eliquis will suffice for DVT prophylaxis Repeat laboratory tomorrow. Attestations Medical Necessity Statement*: Needs continued hospitalization for Covid 19 infection requiring high flow FiO2. Coding Level of Care Code Acute Supervisor Coal Handling for [facility] Diagnoses COVID-19 U07.1 ARDS (adult respiratory distress syndrome) J80 Acute respiratory failure with hypoxia J96.01 Pulmonary hypertension I27.20 Community acquired pneumonia J18.9 Atrial fibrillation I48.11 Atrial fibrillation type: longstanding persistent Acute kidney injury superimposed on CKD N17.9; N18.9 Diabetes E11.65; Z79.4 Diabetes mellitus type: type 2 Diabetes mellitus termite control representative insulin use: with termite control representative use Diabetes mellitus complication status: with hyperglycemia CAD (coronary artery disease) I25.10 Coronary Disease-Associated Artery/Lesion type: [place] artery [place] vs. transplanted heart: [place] heart Associated angina: without angina Hypertension I10 Hypertension type: essential hypertension Hyperlipidemia E78.2 Hyperlipidemia type: mixed hyperlipidemia CHF (congestive heart failure) I50.32 Heart failure type: diastolic Heart failure chronicity: chronic Elevated CK R74.8 Transaminitis R74.0
[2019-10-28 20:58] LABS: Glucose Point of Care 128 mg/dL (70-110)
[2019-10-29] VITALS (39 sets, daily range): BP systolic 120–165; BP diastolic 52–80; PULSE 66–90; RESP 0–41; TEMP 36.8–37.1; O2SAT 86–95; BMI 37.5
--- NOTE | 2019-10-29 01:11 | PC.NURSE ---
notified Dr. Stack no UOP this shift unable to void. orders received
[2019-10-29 05:59] LABS: C Reactive Protein 121.3 mg/L (0.0-4.9); Ferritin 306 ng/mL (30-400); Lactate Dehydrogenase 417 U/L (135-225)
[2019-10-29 06:00] LABS: Alanine Aminotransferase 33 U/L (0-41); Albumin Level 2.3 g/dL (3.5-5.2); Alkaline Phosphatase 53 IU/L (40-130); Anion Gap 10.4 (5-19); Aspartate Amino Transferase 34 U/L (0-40); Blood Urea Nitrogen 23 mg/dL (8-23); Carbon Dioxide 25 mmol/L (22-29); Chloride 108 mmol/L (98-107); Globulin 3.4 g/dL (1.3-4.6); Glucose 56 mg/dL (65-115); Osmolality Calculated 282 mOsm/kg (285-295); Potassium 4.4 mmol/L (3.5-5.1); Sodium 139 mmol/L (136-145); Total Bilirubin 0.7 mg/dL (0.15-1.2); Total Protein 5.7 g/dL (6.6-8.7)
[2019-10-29 06:02] LABS: Basophils % 0.1 %; D Dimer 1.57 ug/mIFEU (0-0.59); Eosinophils # 0.3 10^3/uL (0.0-0.8); Eosinophils % 2.6 %; Hematocrit 39.9 % (42.0-52.0); Hemoglobin 12.9 g/dL (11.7-16.6); Lymphocytes # 1.3 10^3/uL (0.8-4.8); Lymphocytes % 12.1 %; Mean Corpuscular HGB Conc 32.3 g/dL (30.0-36.0); Mean Corpuscular Hemoglobin 30.6 pg (28.0-34.0); Mean Corpuscular Volume 94.8 fL (80-94); Mean Platelet Volume 10.2 fL (7.4-10.4); Monocytes % 8.8 %; Neutrophils # 8.22 10^3/uL (1.8-7.7); Neutrophils % 74.9 %; Nucleated Red Blood Cells % 0 %; Platelet Count 263 10^3/cmm (130-400); Red Blood Count 4.21 10^6/uL (4.1-5.3)
--- NOTE | 2019-10-29 06:59 | XR_ITS ---
WS: [id number] Portable AP upright chest, 10/29/2019 Clinical Data: follow up pneumonia Comparison: Portable chest, 10/25/2019. Findings: The diffuse bilateral airway opacities have not changed. The bulk of the opacity is periph eral. The heart is slightly enlarged. The pulmonary vascularity is not increased. No effusions are se en. No nodules or masses are noted. The aortic arch is tortuous. Monitor leads are on the chest wall. XR/XR chest 1V portable [id number] Impression: No change in diffuse bilateral pneumonia.
[2019-10-29 07:50] LABS: Glucose Point of Care 132 mg/dL (70-110)
[2019-10-29] MEDS: carvedilol 3.125 mg Tablet PO ×2 (08:23→17:04)
[2019-10-29] MEDS: ascorbic acid 500 mg Tablet PO (08:23)
[2019-10-29] MEDS: amiodarone 200 mg Tablet PO (08:23)
[2019-10-29] MEDS: amlodipine 10 mg Tablet PO (08:23)
[2019-10-29] MEDS: apixaban 5 mg Tablet PO ×2 (08:23→17:04)
[2019-10-29] MEDS: thiamine 100 mg Tablet PO ×2 (08:24→17:04)
[2019-10-29] MEDS: benzonatate 100 mg Capsule PO (08:24)
[2019-10-29] MEDS: clopidogrel 75 mg Tablet PO (08:24)
[2019-10-29] MEDS: pantoprazole DR 40 mg Tablet PO (08:24)
[2019-10-29 11:06] LABS: Glucose Point of Care 200 mg/dL (70-110)
[2019-10-29 16:46] LABS: Glucose Point of Care 377 mg/dL (70-110)
--- NOTE | 2019-10-29 17:19 | P.PN_ITS ---
Subjective Subjective: Interval history: Vinh reports he feels better today. He has more energy. No other particular concerns. No productivity to his occasional cough. Medications: Reviewed: Yes Vitals/I&O/Wt Last Vital Signs Temp 98.2 F 10/29/19 11:30 Pulse 74 10/29/19 16:43 Resp 16 10/29/19 16:43 BP 140/64 10/29/19 11:30 Pulse Ox 91 10/29/19 16:43 10/29/19 10/29/19 10/29/19 06:59 14:59 22:59 Intake Total 300 / 300 Output Total 350 / 1325 Balance -350 / 175 300 / 300 Weight last 48 hrs Weight 115.298 kg Weight 114.787 kg Physical Exam Narrative: EXAM NARRATIVE: General exam no apparent distress Cardiovascular regular rate and rhythm without murmur Lungs a few crackles Abdomen is soft with positive bowel sounds Extremities no cyanosis or clubbing Urinary Catheter Management^: Blandon: Cath Placed During This Visit: yes, but has since been removed by the nurse Reason for Continuing Indwelling Catheter: Decision to DC Catheter Urinary Catheter Date of Insertion: 10/20/19 Urinary Catheter Time of Insertion: 10:45 Date Urinary Catheter Removed: 10/27/19 Time Urinary Catheter Discontinued: 17:46 Data : 10/29/19 04:30 10/29/19 04:30 A&P Assessment and plan (1) COVID-19: Continues to slowly wean from oxygen Now on 35 % FiO2 by high flow currently He has completed his Remdisovir and dexamethasone I suspect it will be quite some time before he weans completely from oxygen. Repeat COVID test Status: Acute (2) ARDS (adult respiratory distress syndrome): Slow improvement Status: Acute (3) Acute respiratory failure with hypoxia: It appears he may be slowly improving. Status: Acute (4) Pulmonary hypertension: Status: Acute (5) Community acquired pneumonia: He is completed 7 days of vancomycin and Zosyn. Note that his MRSA PCR was negative of his nares. IV antibiotics were discontinued on October 26 Status: Acute (6) Atrial fibrillation: Rate controlled Continue amiodarone Carvedilol dose was reduced secondary to bradycardia Status: Acute Qualifiers: Atrial fibrillation type: longstanding persistent Qualified Code(s): I48.11 - Longstanding persistent atrial fibrillation (7) Acute kidney injury superimposed on CKD: Renal function stable Lisinopril discontinued secondary to concerns of worsening renal function while in the hospital. Status: Acute (8) Diabetes: Continue sliding scale insulin He had hypoglycemia this morning. Blood sugar drastically reduced secondary to discontinuation of steroids. Change to mild sliding scale insulin Reduce Lantus to 10 units Continue to follow sugars closely Status: Acute Qualifiers: Diabetes mellitus type: type 2 Diabetes mellitus custodial insulin use: with handstitching machine collar feller use Diabetes mellitus complication status: with hyperglycemia Qualified Code(s): E11.65 - Type 2 diabetes mellitus with hyperglycemia; Z79.4 - retirement (current) use of insulin (9) CAD (coronary artery disease): Asymptomatic Status: Acute Qualifiers: Coronary Disease-Associated Artery/Lesion type: [place] artery [place] vs. transplanted heart: [place] heart Associated angina: without angina Qual ified Code(s): I25.10 - Atherosclerotic heart disease of [place] coronary artery without angina pectoris (10) Hypertension: Fair control Status: Acute Qualifiers: Hypertension type: essential hypertension Qualified Code(s): I10 - Essential (primary) hypertension (11) Hyperlipidemia: Status: Acute Qualifiers: Hyperlipidemia type: mixed hyperlipidemia Qualified Code(s): E78.2 - Mixed hyperlipidemia (12) CHF (congestive heart failure): Compensated currently Status: Acute Qualifiers: Heart failure type: diastolic Heart failure chronicity: chronic Qualified Code(s): I50.32 - Chronic diastolic (congestive) heart failure (13) Elevated CK: Statin held secondary to mild rhabdo on admission Status: Acute (14) Transaminitis: Likely secondary to COVID Status: Acute Additional A&P Information Allow natural Eliquis will suffice for DVT prophylaxis Attestations Medical Necessity Statement*: Needs continued hospitalization secondary to high flow oxygen requirement from Covid 19 viral pneumonia Coding Level of Care Code 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 [facility] Diagnoses COVID-19 U07.1 ARDS (adult respiratory distress syndrome) J80 Acute respiratory failure with hypoxia J96.01 Pulmonary hypertension I27.20 Community acquired pneumonia J18.9 Atrial fibrillation I48.11 Atrial fibrillation type: longstanding persistent Acute kidney injury superimposed on CKD N17.9; N18.9 Diabetes E11.65; Z79.4 Diabetes mellitus type: type 2 Diabetes mellitus handstitching machine collar feller insulin use: with custodial use Diabetes mellitus complication status: with hyperglycemia CAD (coronary artery disease) I25.10 Coronary Disease-Associated Artery/Lesion type: [place] artery [place] vs. transplanted heart: [place] heart Associated angina: without angina Hypertension I10 Hypertension type: essential hypertension Hyperlipidemia E78.2 Hyperlipidemia type: mixed hyperlipidemia CHF (congestive heart failure) I50.32 Heart failure type: diastolic Heart failure chronicity: chronic Elevated CK R74.8 Transaminitis R74.0
[2019-10-29 20:05] LABS: Glucose Point of Care 370 mg/dL (70-110)
[2019-10-30] VITALS (27 sets, daily range): BP systolic 114–157; BP diastolic 57–80; PULSE 69–92; RESP 0–75; TEMP 36.3–37.1; O2SAT 86–94
[2019-10-30] MEDS: apixaban 5 mg Tablet PO ×2 (08:51→17:57)
[2019-10-30] MEDS: carvedilol 3.125 mg Tablet PO ×2 (08:51→17:57)
[2019-10-30] MEDS: amiodarone 200 mg Tablet PO (08:51)
[2019-10-30] MEDS: clopidogrel 75 mg Tablet PO (08:51)
[2019-10-30] MEDS: amlodipine 10 mg Tablet PO (08:51)
[2019-10-30] MEDS: ascorbic acid 500 mg Tablet PO (08:51)
--- NOTE | 2019-10-30 08:51 | PC.SOCIAL ---
IMM Updated Page 2 of IMM explained to patient's daughter by phone. She verbalizes understanding. Spoke with RT Catina in VICU and she states she can't locate the IMM, so a new one was printed off and initialed. Catina placed in VICU chart and provided patient a copy.
[2019-10-30] MEDS: pantoprazole DR 40 mg Tablet PO (08:52)
[2019-10-30] MEDS: thiamine 100 mg Tablet PO ×2 (08:52→17:57)
[2019-10-30 11:52] LABS: Glucose Point of Care 175 mg/dL (70-110)
[2019-10-30 11:52] LABS: Glucose Point of Care 226 mg/dL (70-110)
--- NOTE | 2019-10-30 15:42 | PM.PN ---
Subjective Subjective: Interval history: Vinh reports he is doing okay. He feels little bit better than yesterday. He has been able to stand up. Feels like he has some strength. Medications: Reviewed: Yes Vitals/I&O/Wt Last Vital Signs Temp 97.4 F L 10/30/19 11:00 Pulse 78 10/30/19 12:32 Resp 24 H 10/30/19 12:32 BP 116/64 10/30/19 12:00 Pulse Ox 92 10/30/19 12:32 10/30/19 10/30/19 10/30/19 06:59 14:59 22:59 Intake Total 120 / 1100 600 / 600 Output Total 300 / 1750 650 / 650 Balance -180 / -650 -50 / -50 Weight last 48 hrs Weight 115.298 kg Physical Exam Narrative: EXAM NARRATIVE: General exam no apparent distress Cardiovascular regular rate and rhythm without murmur Lungs a few crackles Abdomen is soft with positive bowel sounds Extremities no cyanosis or clubbing Urinary Catheter Management^: Blandon: Cath Placed During This Visit: yes, but has since been removed by the nurse Reason for Continuing Indwelling Catheter: Not indwelling catheter Urinary Catheter Date of Insertion: 10/20/19 Urinary Catheter Time of Insertion: 10:45 Date Urinary Catheter Removed: 10/27/19 Time Urinary Catheter Discontinued: 17:46 Data : 10/29/19 04:30 10/29/19 04:30 A&P Assessment and plan (1) COVID-19: Continues to slowly wean from oxygen Now on 40 % FiO2 by high flow currently He has completed his Remdisovir and dexamethasone I suspect it will be quite some time before he weans completely from oxygen. Repeat COVID test pending Status: Acute (2) ARDS (adult respiratory distress syndrome): Slow improvement Status: Acute (3) Acute respiratory failure with hypoxia: It appears he may be slowly improving. Status: Acute (4) Pulmonary hypertension: Status: Acute (5) Community acquired pneumonia: He is completed 7 days of vancomycin and Zosyn. Note that his MRSA PCR was negative of his nares. IV antibiotics were discontinued on October 26 Status: Acute (6) Atrial fibrillation: Rate controlled Continue amiodarone Carvedilol dose was reduced secondary to bradycardia Status: Acute Qualifiers: Atrial fibrillation type: longstanding persistent Qualified Code(s): I48.11 - Longstanding persistent atrial fibrillation (7) Acute kidney injury superimposed on CKD: Renal function stable Lisinopril discontinued secondary to concerns of worsening renal function while in the hospital. Status: Acute (8) Diabetes: Continue sliding scale insulin Restart Lantus 5 units at night. Blood sugars have been higher. Continue to follow sugars closely Status: Acute Qualifiers: Diabetes mellitus type: type 2 Diabetes mellitus terminal block assembler insulin use: with nursing home use Diabetes mellitus complication status: with hyperglycemia Qualified Code(s): E11.65 - Type 2 diabetes mellitus with hyperglycemia; Z79.4 - roasterman (current) use of insulin (9) CAD (coronary artery disease): Asymptomatic Status: Acute Qualifiers: Coronary Disease-Associated Artery/Lesion type: [place] artery [place] vs. transplanted heart: [place] heart Associated angina: without angina Qualified Code(s): I25.10 - Atherosclerotic heart disease of [place] coronary artery without angina pectoris (10) Hypertension: Fair control Status: Acute Qualifiers: Hypertension type: essential hypertension Qualified Code(s): I10 - Essential (primary) hypertension (11) Hyperlipidemia: Status: Acute Qualifiers: Hyperlipidemia type: mixed hyperlipidemia Qualified Code(s): E78.2 - Mixed hyperlipidemia (12) CHF (congestive heart failure): Compensated currently Status: Acute Qualifiers: Heart failure type: diastolic Heart failure chronicity: chronic Qualified Code(s): I50.32 - Chronic diastolic (congestive) heart failure (13) Elevated CK: Statin held secondary to mild rhabdo on admission Status: Acute (14) Transaminitis: Likely secondary to COVID Status: Acute Additional A&P Information Allow natural Eliquis will suffice for DVT prophylaxis Attestations Medical Necessity Statement*: Needs continued hospitalization secondary to Covid 19 viral pneumonia requiring high-frequency oxygen treatment. 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 [facility] Diagnoses COVID-19 U07.1 ARDS (adult respiratory distress syndrome) J80 Acute respiratory failure with hypoxia J96.01 Pulmonary hypertension I27.20 Community acquired pneumonia J18.9 Atrial fibrillation I48.11 Atrial fibrillation type: longstanding persistent Acute kidney injury superimposed on CKD N17.9; N18.9 Diabetes E11.65; Z79.4 Diabetes mellitus type: type 2 Diabetes mellitus nursing home insulin use: with nursing home use Diabetes mellitus complication status: with hyperglycemia CAD (coronary artery disease) I25.10 Coronary Disease-Associated Artery/Lesion type: [place] artery [place] vs. transplanted heart: [place] heart Associated angina: without angina Hypertension I10 Hypertension type: essential hypertension Hyperlipidemia E78.2 Hyperlipidemia type: mixed hyperlipidemia CHF (congestive heart failure) I50.32 Heart failure type: diastolic Heart failure chronicity: chronic Elevated CK R74.8 Transaminitis R74.0
[2019-10-30 20:33] LABS: Coronavirus Lab Test PTC Positive
[2019-10-30] MEDS: insulin glargine 100 units/1 mL 5 UNIT SUBCUT (22:22)
[2019-10-31] VITALS (24 sets, daily range): BP systolic 101–147; BP diastolic 57–78; PULSE 65–91; RESP 19–35; TEMP 36.6–37; O2SAT 67–99; BMI 37.5
[2019-10-31 05:06] LABS: Glucose Point of Care 338 mg/dL (70-110)
[2019-10-31 05:06] LABS: Glucose Point of Care 199 mg/dL (70-110)
[2019-10-31 08:05] LABS: Glucose Point of Care 198 mg/dL (70-110)
[2019-10-31] MEDS: apixaban 5 mg Tablet PO ×2 (10:05→19:43)
[2019-10-31] MEDS: amlodipine 10 mg Tablet PO (10:05)
[2019-10-31] MEDS: amiodarone 200 mg Tablet PO (10:05)
[2019-10-31] MEDS: ascorbic acid 500 mg Tablet PO (10:06)
[2019-10-31] MEDS: clopidogrel 75 mg Tablet PO (10:06)
[2019-10-31] MEDS: pantoprazole DR 40 mg Tablet PO (10:06)
[2019-10-31] MEDS: carvedilol 3.125 mg Tablet PO ×2 (10:06→19:43)
[2019-10-31] MEDS: thiamine 100 mg Tablet PO ×2 (10:07→19:43)
--- NOTE | 2019-10-31 10:10 | XRR_ITS ---
PROCEDURE INFORMATION: Exam: XR Chest, 1 View Exam date and time: 10/31/2019 10:48 AM Age: 73 years old Clinical indication: Shortness of breath; Additional info: Worsening oxygen demand/ shortness of breath TECHNIQUE: Imaging protocol: XR of the chest Views: 1 view. COMPARISON: CR XR chest 1V portable [id number] 10/29/2019 8:37 AM FINDINGS: Lungs: Diffuse alveolar opacities suspicious for pneumonia in both lungs are redemonstrated. Findings have improved in the left lower lobe but have worsened in the right middle lobe and right upper lobe. Pleural space: No pleural effusion. No pneumothorax. Heart/Mediastinum: Stable mild enlargement of the cardiac silhouette. Mediastinal contours are unremarkable. Vasculature: Stable vascular calcifications in the aorta. Bones/joints: Unremarkable for age. XR/XR chest 1V portable [id number] IMPRESSION: 1. Diffuse alveolar opacities suspicious for pneumonia in both lungs are redemonstrated. Findings have improved in the left lower lobe but have worsened in the right middle lobe and right upper lobe. Recommend followup chest x-ray to ensure resolution. 2. Incidental/nonacute findings are listed in the report.
[2019-10-31] MEDS: FUROsemide 10 mg/mL SDV 4mL 40 MG IVP ×2 (10:41→23:44)
--- NOTE | 2019-10-31 10:46 | PM.PN ---
Subjective Subjective: Interval history: Vinh reports he is not short of breath. Nursing alerts me that oxygen levels were decreased this morning so they turned him on heated high flow, and FiO2 requirement has been increased to 100%. Medications: Reviewed: Yes Vitals/I&O/Wt Last Vital Signs Temp 98.3 F 10/31/19 08:00 Pulse 89 10/31/19 10:22 Resp 20 H 10/31/19 10:22 BP 135/78 10/31/19 08:00 Pulse Ox 90 10/31/19 10:22 10/30/19 10/31/19 10/31/19 22:59 06:59 14:59 Intake Total 240 / 840 Output Total 700 / 1350 450 / 1800 Balance -460 / -510 -450 / -960 Weight last 48 hrs Weight 115.212 kg Physical Exam Narrative: EXAM NARRATIVE: General exam no apparent distress Cardiovascular regular rate and rhythm without murmur Lungs crackles bilaterally Abdomen is soft with positive bowel sounds Extremities no cyanosis or clubbing Urinary Catheter Management^: Blandon: Cath Placed During This Visit: yes, but has since been removed by the nurse Reason for Continuing Indwelling Catheter: Not indwelling catheter Urinary Catheter Date of Insertion: 10/20/19 Urinary Catheter Time of Insertion: 10:45 Date Urinary Catheter Removed: 10/27/19 Time Urinary Catheter Discontinued: 17:46 Data : 10/29/19 04:30 10/29/19 04:30 A&P Assessment and plan (1) COVID-19: Requiring increased amount of FiO2. He has completed his Remdisovir and dexamethasone However, with worsening we will restart dexamethasone Repeat COVID testing was still positive as of 10/29 Prone as much as possible. Status: Acute (2) ARDS (adult respiratory distress syndrome): Worsened today. Check chest x-ray Initiate BiPAP Lasix 40 mg IV Status: Acute (3) Acute respiratory failure with hypoxia: It appears he may be slowly improving. Status: Acute (4) Pulmonary hypertension: Status: Acute (5) Community acquired pneumonia: He completed 7 days of vancomycin and Zosyn. Note that his MRSA PCR was negative of his nares. IV antibiotics were discontinued on October 26 Status: Acute (6) Atrial fibrillation: Rate controlled Continue amiodarone Carvedilol dose was reduced secondary to bradycardia Status: Acute Qualifiers: Atrial fibrillation type: longstanding persistent Qualified Code(s): I48.11 - Longstanding persistent atrial fibrillation (7) Acute kidney injury superimposed on CKD: Renal function stable Lisinopril discontinued secondary to concerns of worsening renal function while in the hospital. Status: Acute (8) Diabetes: Continue sliding scale insulin Restart Lantus 5 units at night. Blood sugars have been higher. Continue to follow sugars closely Status: Acute Qualifiers: Diabetes mellitus type: type 2 Diabetes mellitus care home insulin use: with adjunct faculty for medical terminology use Diabetes mellitus complication status: with hyperglycemia Qualified Code(s): E11.65 - Type 2 diabetes mellitus with hyperglycemia; Z79.4 - terminal gauger supervisor (current) use of insulin (9) CAD (coronary artery disease): Asymptomatic Status: Acute Qualifiers: Coronary Disease-Associated Artery/Lesion type: [place] artery [place] vs. transplanted heart: [place] heart Associated angina: without angina Qualified Code(s): I25.10 - Atherosclerotic heart disease of [place] coronary artery without angina pectoris (10) Hypertension: Fair control Status: Acute Qualifiers: Hypertension type: essential hypertension Qualified Code(s): I10 - Essential (primary) hypertension (11) Hyperlipidemia: Status: Acute Qualifiers: Hyperlipidemia type: mixed hyperlipidemia Qualified Code(s): E78.2 - Mixed hyperlipidemia (12) CHF (congestive heart failure): Compensated currently Status: Acute Qualifiers: Heart failure type: diastolic Heart failure chronicity: chronic Qualified Code(s): I50.32 - Chronic diastolic (congestive) heart failure (13) Elevated CK: Statin held secondary to mild rhabdo on admission Status: Acute (14) Transaminitis: Likely secondary to COVID Status: Acute Additional A&P Information Allow natural Eliquis will suffice for DVT prophylaxis Attestations Medical Necessity Statement*: Needs continued hospital stay, for continued treatment of Covid 19 requiring high flow oxygen as well as BiPAP. 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 [facility] Diagnoses COVID-19 U07.1 ARDS (adult respiratory distress syndrome) J80 Acute respiratory failure with hypoxia J96.01 Pulmonary hypertension I27.20 Community acquired pneumonia J18.9 Atrial fibrillation I48.11 Atrial fibrillation type: longstanding persistent Acute kidney injury superimposed on CKD N17.9; N18.9 Diabetes E11.65; Z79.4 Diabetes mellitus type: type 2 Diabetes mellitus care home insulin use: with adjunct faculty for medical terminology use Diabetes mellitus complication status: with hyperglycemia CAD (coronary artery disease) I25.10 Coronary Disease-Associated Artery/Lesion type: [place] artery [place] vs. transplanted heart: [place] heart Associated angina: without angina Hypertension I10 Hypertension type: essential hypertension Hyperlipidemia E78.2 Hyperlipidemia type: mixed hyperlipidemia CHF (congestive heart failure) I50.32 Heart failure type: diastolic Heart failure chronicity: chronic Elevated CK R74.8 Transaminitis R74.0
[2019-10-31] MEDS: dexamethasone 10 mg/mL INJ 6 MG IVP (11:12)
[2019-10-31 12:28] LABS: Glucose Point of Care 336 mg/dL (70-110)
[2019-10-31 13:23] LABS: Basophils % 0.2 %; Eosinophils # 0.2 10^3/uL (0.0-0.8); Eosinophils % 1.1 %; Hematocrit 41.8 % (42.0-52.0); Hemoglobin 13.2 g/dL (11.7-16.6); Lymphocytes # 0.9 10^3/uL (0.8-4.8); Mean Corpuscular HGB Conc 31.6 g/dL (30.0-36.0); Mean Corpuscular Hemoglobin 30.5 pg (28.0-34.0); Mean Corpuscular Volume 96.5 fL (80-94); Mean Platelet Volume 10.2 fL (7.4-10.4); Monocytes # 0.9 10^3/uL (0.2-0.9); Monocytes % 7.1 %; Neutrophils # 11.18 10^3/uL (1.8-7.7); Neutrophils % 83.9 %; Nucleated Red Blood Cells % 0 %; Platelet Count 222 10^3/cmm (130-400); Red Blood Count 4.33 10^6/uL (4.1-5.3); Red Cell Distribution Width 12.9 % (12.1-15.1); White Blood Count 13.3 10^3/uL (4.0-10.0)
[2019-10-31 13:35] LABS: D Dimer 1.14 ug/mIFEU (0-0.59)
[2019-10-31 13:45] LABS: Procalcitonin 0.19 ng/mL (0-0.5)
[2019-10-31 13:56] LABS: Alanine Aminotransferase 24 U/L (0-41); Albumin Level 2.2 g/dL (3.5-5.2); Alkaline Phosphatase 63 IU/L (40-130); Anion Gap 13.1 (5-19); Aspartate Amino Transferase 22 U/L (0-40); Blood Urea Nitrogen 26 mg/dL (8-23); Calcium 8.4 mg/dL (8.5-10.5); Carbon Dioxide 25 mmol/L (22-29); Chloride 96 mmol/L (98-107); Ferritin 380 ng/mL (30-400); Globulin 4.3 g/dL (1.3-4.6); Glucose 377 mg/dL (65-115); Lactate Dehydrogenase 350 U/L (135-225); Osmolality Calculated 280 mOsm/kg (285-295); Potassium 5.1 mmol/L (3.5-5.1); Sodium 129 mmol/L (136-145); Total Bilirubin 0.8 mg/dL (0.15-1.2); Total Protein 6.5 g/dL (6.6-8.7)
--- NOTE | 2019-10-31 15:21 | PC.NURSE ---
Earlier in day around noon Pts O2 started to decrease with SPO2 in low 60's. Respiratory contacted Dr. Alexander who ordered IV lasix and Bipap. wants him prone for a couple of hours when put to bed. Pt is now doing better. He is on heated high flow 45/70. Pt did not get to eat lunch due to being on bipap and decreased oxygen. Will continue to monitor.
[2019-10-31 18:00] LABS: Glucose Point of Care 440 mg/dL (70-110)
--- NOTE | 2019-10-31 18:16 | PC.NURSE ---
This nurse gave the Pt a bed bath, washed hair with a shampoo cap, changed all bed linens, and emptied trash. Pt was able to shave face with a razor of his brought from home. Pt stated he was feeling much better. Call light around Pt neck, bed side table in reach. Will continue to monitor.
[2019-10-31] MEDS: insulin glargine 100 units/1 mL 10 UNIT SUBCUT (21:39)
[2019-11-01] VITALS (18 sets, daily range): BP systolic 120–168; BP diastolic 67–88; PULSE 62–86; RESP 17–23; TEMP 36.5–37; O2SAT 91–96
[2019-11-01 00:30] LABS: Glucose Point of Care 404 mg/dL (70-110)
[2019-11-01 00:30] LABS: Glucose Point of Care 429 mg/dL (70-110)
[2019-11-01 05:58] LABS: Basophils % 0.1 %; Hematocrit 42.2 % (42.0-52.0); Hemoglobin 13.5 g/dL (11.7-16.6); Lymphocytes # 0.7 10^3/uL (0.8-4.8); Lymphocytes % 6.1 %; Mean Corpuscular Hemoglobin 30.7 pg (28.0-34.0); Mean Corpuscular Volume 95.9 fL (80-94); Mean Platelet Volume 10.4 fL (7.4-10.4); Monocytes # 0.5 10^3/uL (0.2-0.9); Neutrophils # 10.11 10^3/uL (1.8-7.7); Neutrophils % 89.1 %; Nucleated Red Blood Cells % 0 %; Platelet Count 227 10^3/cmm (130-400); Red Cell Distribution Width 12.6 % (12.1-15.1); White Blood Count 11.3 10^3/uL (4.0-10.0)
[2019-11-01 06:19] LABS: D Dimer 0.88 ug/mIFEU (0-0.59)
[2019-11-01 06:20] LABS: Alanine Aminotransferase 23 U/L (0-41); Albumin Level 2.5 g/dL (3.5-5.2); Alkaline Phosphatase 83 IU/L (40-130); Anion Gap 15.1 (5-19); Aspartate Amino Transferase 23 U/L (0-40); Blood Urea Nitrogen 40 mg/dL (8-23); Calcium 8.9 mg/dL (8.5-10.5); Carbon Dioxide 26 mmol/L (22-29); Chloride 97 mmol/L (98-107); Globulin 4.8 g/dL (1.3-4.6); Glucose 341 mg/dL (65-115); Osmolality Calculated 287 mOsm/kg (285-295); Potassium 5.1 mmol/L (3.5-5.1); Sodium 133 mmol/L (136-145); Total Bilirubin 0.6 mg/dL (0.15-1.2); Total Protein 7.3 g/dL (6.6-8.7)
[2019-11-01 06:49] LABS: Lactate Dehydrogenase 521 U/L (135-225)
[2019-11-01 07:17] LABS: Glucose Point of Care 354 mg/dL (70-110)
[2019-11-01] MEDS: amiodarone 200 mg Tablet PO (08:28)
[2019-11-01] MEDS: amlodipine 10 mg Tablet PO (08:29)
[2019-11-01] MEDS: apixaban 5 mg Tablet PO ×2 (08:29→17:22)
[2019-11-01] MEDS: carvedilol 3.125 mg Tablet PO ×2 (08:30→17:22)
[2019-11-01] MEDS: dexamethasone 10 mg/mL INJ 6 MG IVP (08:30)
[2019-11-01] MEDS: thiamine 100 mg Tablet PO ×2 (08:30→17:22)
[2019-11-01] MEDS: clopidogrel 75 mg Tablet PO (08:30)
[2019-11-01] MEDS: pantoprazole DR 40 mg Tablet PO (08:30)
[2019-11-01] MEDS: ascorbic acid 500 mg Tablet PO (08:30)
[2019-11-01 11:47] LABS: Glucose Point of Care 373 mg/dL (70-110)
[2019-11-01 12:11] LABS: Ferritin 401 ng/mL (30-400)
[2019-11-01 12:36] LABS: C Reactive Protein 200.1 mg/L (0.0-4.9)
[2019-11-01 12:43] LABS: Vancomycin Trough 17.2 ug/mL (10-15)
--- NOTE | 2019-11-01 14:25 | PC.SOCIAL ---
IMM Update Pg 2 of IMM reviewed with patient over the phone. He has cell phone in room. Per Chely RN, she does not know where IMM is. New one was completed. Will keep in SS office until closer to d/c.
[2019-11-01 16:13] LABS: Glucose Point of Care 427 mg/dL (70-110)
--- NOTE | 2019-11-01 16:21 | P.PN_ITS ---
Subjective Subjective: Interval history: Vinh reports he feels better. No other complaints. Significant desaturation occurred yesterday that has improved with BiPAP, IV Lasix. Medications: Reviewed: Yes Vitals/I&O/Wt Last Vital Signs Temp 98.1 F 11/01/19 16:00 Pulse 72 11/01/19 16:00 Resp 19 H 11/01/19 16:00 BP 124/67 11/01/19 16:00 Pulse Ox 94 11/01/19 16:00 11/01/19 11/01/19 11/01/19 06:59 14:59 22:59 Intake Total 350 / 800 940 / 940 Output Total 1550 / 1550 325 / 1875 Balance 350 / -475 -610 / -610 -325 / -935 Weight last 48 hrs Weight 115.212 kg Physical Exam Narrative: EXAM NARRATIVE: General exam no apparent distress Cardiovascular regular rate and rhythm without murmur Lungs crackles bilaterally Abdomen is soft with positive bowel sounds Extremities no cyanosis or clubbing. Trace edema noted Urinary Catheter Management^: Blandon: Cath Placed During This Visit: yes, but has since been removed by the nurse Reason for Continuing Indwelling Catheter: Not indwelling catheter Urinary Catheter Date of Insertion: 10/20/19 Urinary Catheter Time of Insertion: 10:45 Date Urinary Catheter Removed: 10/27/19 Time Urinary Catheter Discontinued: 17:46 Data : 11/01/19 03:55 11/01/19 03:55 A&P Assessment and plan (1) COVID-19: FiO2 is now down to approximately 40 to 45% He has completed his Remdisovir and dexamethasone Secondary to worsening dexamethasone was resumed. Consider discontinuation of this in 1 to 2 days. Repeat COVID testing was still positive as of 10/29 Prone as much as possible. Status: Acute (2) ARDS (adult respiratory distress syndrome): Improved today Continue to wean FiO2 Continue Lasix, 40 mg twice daily will be initiated today Status: Acute (3) Acute respiratory failure with hypoxia: It appears he may be slowly improving. Status: Acute (4) Pulmonary hypertension: Status: Acute (5) Community acquired pneumonia: He completed 7 days of vancomycin and Zosyn. Note that his MRSA PCR was negative of his nares. IV antibiotics were discontinued on October 26 IV antibiotics were reinitiated yesterday secondary to his decompensation. However, with significant improvement with diuresis I am going to discontinue h is vancomycin. Status: Acute (6) Atrial fibrillation: Rate controlled Continue amiodarone Carvedilol dose was reduced secondary to bradycardia Status: Acute Qualifiers: Atrial fibrillation type: longstanding persistent Qualified Code(s): I48.11 - Longstanding persistent atrial fibrillation (7) Acute kidney injury superimposed on CKD: Renal function stable Lisinopril discontinued secondary to concerns of worsening renal function while in the hospital. Status: Acute (8) Diabetes: With addition of dexamethasone glucose has increased significantly Increase Lantus to 20 units Change sliding scale to moderate. May have to increase further to aggressive. Would plan on dexamethasone for 1 more day and then consider discontinuing if patient improving. Status: Acute Qualifiers: Diabetes mellitus type: type 2 Diabetes mellitus skilled nursing insulin use: with skilled nursing use Diabetes mellitus complication status: with hyperglycemia Qualified Code(s): E11.65 - Type 2 diabetes mellitus with hyperglycemia; Z79.4 - intermodal dispatcher (current) use of insulin (9) CAD (coronary artery disease): Asymptomatic Status: Acute Qualifiers: Coronary Disease-Associated Artery/Lesion type: [place] artery [place] vs. transplanted heart: [place] heart Associated angina: without angina Qualified Code(s): I25.10 - Atherosclerotic heart disease of [place] coronary artery without angina pectoris (10) Hypertension: Fair control Status: Acute Qualifiers: Hypertension type: essential hypertension Qualified Code(s): I10 - Essential (primary) hypertension (11) Hyperlipidemia: Status: Acute Qualifiers: Hyperlipidemia type: mixed hyperlipidemia Qualified Code(s): E78.2 - Mixed hyperlipidemia (12) CHF (congestive heart failure): Lasix 40 mg twice daily Status: Acute Qualifiers: Heart failure type: diastolic Heart failure chronicity: chronic Qualified Code(s): I50.32 - Chronic diastolic (congestive) heart failure (13) Elevated CK: Statin held secondary to mild rhabdo on admission Status: Acute (14) Transaminitis: Likely secondary to COVID Status: Acute Additional A&P Information Allow natural Eliquis will suffice for DVT prophylaxis Attestations Medical Necessity Statement*: Needs continued hospitalization for Covid 19 pneumonia requiring high flow FiO2 Coding Level of Care Code Acute Sports Management Intern for [facility] Diagnoses COVID-19 U07.1 ARDS (adult respiratory distress syndrome) J80 Acute respiratory failure with hypoxia J96.01 Pulmonary hypertension I27.20 Community acquired pneumonia J18.9 Atrial fibrillation I48.11 Atrial fibrillation type: longstanding persistent Acute kidney injury superimposed on CKD N17.9; N18.9 Diabetes E11.65; Z79.4 Diabetes mellitus type: type 2 Diabetes mellitus long term care administrator insulin use: with skilled nursing use Diabetes mellitus complication status: with hyperglycemia CAD (coronary artery disease) I25.10 Coronary Disease-Associated Artery/Lesion type: [place] artery [place] vs. transplanted heart: [place] heart Associated angina: without angina Hypertension I10 Hypertension type: essential hypertension Hyperlipidemia E78.2 Hyperlipidemia type: mixed hyperlipidemia CHF (congestive heart failure) I50.32 Heart failure type: diastolic Heart failure chronicity: chronic Elevated CK R74.8 Transaminitis R74.0
[2019-11-01] MEDS: FUROsemide 40 mg Tablet PO (16:29)
--- NOTE | 2019-11-01 19:33 | PC.NURSE ---
Rounding: Patient sitting up in recliner upon entering room watching tv. Patient is on heated [place] oxygen saturation about 92%. Patient alert and oriented at this time and denies any pain. Patient adjusted for comfort and denies any further needs at this time. Will continue to monitor.
[2019-11-01 20:08] LABS: Glucose Point of Care 447 mg/dL (70-110)
[2019-11-01] MEDS: insulin glargine 100 units/1 mL 20 UNIT SUBCUT (20:43)
[2019-11-02] VITALS (34 sets, daily range): BP systolic 107–145; BP diastolic 58–98; PULSE 58–80; RESP 10–27; TEMP 36.4–36.8; O2SAT 87–98; BMI 37.2
--- NOTE | 2019-11-02 05:30 | PC.NURSE ---
End of shift: Patient is on heated hi flow at 35/35. Patient vital signs remain stable. Patient has had no complaints of shortness of breath or pain. Patient has slept in his recliner and voided per urinal. Patient remains alert and oriented. Will continue to monitor.
[2019-11-02 06:51] LABS: Alanine Aminotransferase 22 U/L (0-41); Albumin Level 2.4 g/dL (3.5-5.2); Alkaline Phosphatase 71 IU/L (40-130); Anion Gap 15.9 (5-19); Aspartate Amino Transferase 19 U/L (0-40); Blood Urea Nitrogen 51 mg/dL (8-23); Calcium 8.6 mg/dL (8.5-10.5); Carbon Dioxide 23 mmol/L (22-29); Chloride 100 mmol/L (98-107); Globulin 4.4 g/dL (1.3-4.6); Glucose 373 mg/dL (65-115); Osmolality Calculated 292 mOsm/kg (285-295); Potassium 4.9 mmol/L (3.5-5.1); Sodium 134 mmol/L (136-145); Total Bilirubin 0.5 mg/dL (0.15-1.2); Total Protein 6.8 g/dL (6.6-8.7)
[2019-11-02 08:15] LABS: Glucose Point of Care 350 mg/dL (70-110)
[2019-11-02] MEDS: FUROsemide 40 mg Tablet PO ×2 (08:23→16:17)
[2019-11-02] MEDS: amlodipine 10 mg Tablet PO (08:24)
[2019-11-02] MEDS: ascorbic acid 500 mg Tablet PO (08:24)
[2019-11-02] MEDS: apixaban 5 mg Tablet PO ×2 (08:24→17:07)
[2019-11-02] MEDS: amiodarone 200 mg Tablet PO (08:24)
[2019-11-02] MEDS: clopidogrel 75 mg Tablet PO (08:24)
[2019-11-02] MEDS: carvedilol 3.125 mg Tablet PO ×2 (08:24→17:11)
[2019-11-02] MEDS: pantoprazole DR 40 mg Tablet PO (08:24)
[2019-11-02] MEDS: benzonatate 100 mg Capsule PO (08:25)
[2019-11-02] MEDS: thiamine 100 mg Tablet PO ×2 (08:25→17:07)
[2019-11-02] MEDS: dexamethasone 10 mg/mL INJ 6 MG IVP (08:55)
[2019-11-02] MEDS: albuterol 8 gm MDI 4 PUFF INHALATION (08:59)
--- NOTE | 2019-11-02 09:18 | PC.RESP ---
Pt removed from heated high flow. Pt placed on 7 lpm high flow nasal cannula sats 93% hr 67 rr 20.
[2019-11-02 11:34] LABS: Glucose Point of Care 548 mg/dL (70-110)
[2019-11-02 11:34] LABS: Glucose Point of Care 540 mg/dL (70-110)
[2019-11-02 16:49] LABS: Glucose Point of Care 554 mg/dL (70-110)
--- NOTE | 2019-11-02 18:37 | PC.NURSE ---
today pt was put on 7L NC today and has done well with oxygen sats at 90 to 97%. respiratory gave acetylcysteine and pt had an allergic reaction with severe bronchospasm to it, notified, med placed on hold. he has been up in his chair all day, he has complained he feels constipated because he hasn't went in 3 days when he normally goes daily, notified. cbg has been in the 500's today. he has a sore to the bottom of his left thigh, protective ointment placed
--- NOTE | 2019-11-02 19:17 | PM.PN ---
Subjective Subjective: Interval history: Reports he is feeling better. Has been having issues with constipation. Earlier today had a suspected reaction to Mucomyst with bronchospasm, worsening wheezing. Had received multiple breathing treatments. Currently reports he is not having a whole lot of cough. Denies any chest pain or pressure. Vitals/I&O/Wt Last Vital Signs Temp 97.7 F 11/02/19 16:00 Pulse 77 11/02/19 16:00 Resp 19 H 11/02/19 16:00 BP 145/67 11/02/19 16:00 Pulse Ox 95 11/02/19 16:00 11/02/19 11/02/19 11/02/19 06:59 14:59 22:59 Intake Total 340 / 1380 1080 / 1080 360 / 1440 Output Total 550 / 3175 900 / 900 400 / 1300 Balance -210 / -1795 180 / 180 -40 / 140 Weight last 48 hrs Weight 114.305 kg Physical Exam Const: COMMON NORMALS: no acute distress and patient oriented x3 NUTRITIONAL APPEARANCE: overweight HENMT: COMMON NORMALS: oropharynx normal Neck/C-Spine: COMMON NORMALS: no JVD Resp: COMMON NORMALS: normal respiratory effort AUSCULTATION: rales (Few faint rales at the left base.) Cardio: COMMON NORMALS: no JVD, regular rhythm, S1 normal heart sound present, S2 normal heart sound present and No murmurs present (Cardio) RHYTHM: regular rhythm HEART SOUNDS: S1 normal heart sound present and S2 normal heart sound present GI: COMMON NORMALS: Normal to inspection, nondistended, normoactive bowel sounds present, Soft to palpation and non-tender PALPATION: Yes Soft to palpation Extremity: COMMON NORMALS: no joint enlargement GENERAL: Yes edema (4+) Neuro: COMMON NORMALS: patient oriented x3 and moves all extremities Skin: COMMON NORMALS: no rashes or lesions noted GENERAL SKIN EXAM: no rashes or lesions noted Urinary Catheter Management^: Blandon: Cath Placed During This Visit: yes, but has since been removed by the nurse Reason for Continuing Indwelling Catheter: Not indwelling catheter Urinary Catheter Date of Insertion: 10/20/19 Urinary Catheter Time of Insertion: 10:45 Date Urinary Catheter Removed: 10/27/19 Time Urinary Catheter Discontinued: 17:46 Data : 11/01/19 03:55 11/02/19 04:00 A&P Assessment and plan (1) COVID-19: Oxygenation is gradually improving. He is currently down to 7 L by nasal cannula. He reports subjectively he is feeling better. Did have an episode today of bronchospasm, thought to be perhaps secondary to Mucomyst, which was discontinued this time. Was added to his allergy list. Received several breathing treatments subsequently, with improvement in his symptoms. Currently denies any significant cough, chest pain or pressure. He has been diuresing well, as well and is in negative balance, and perhaps this is helping with his oxygenation as well. At this Time will continue with his treatments as currently ordered. Continue attempts to wean down on oxygen. Reassess. Discussed also with his daughter. Answered all questions. Secondary to worsening dexamethasone was resumed. Consider discontinuation of this in 1 to 2 days. Repeat COVID testing was still positive as of 10/29 Prone as tolerating. Status: Acute (2) ARDS (adult respiratory distress syndrome): Improved Continue to wean FiO2 Continue Lasix, 40 mg twice daily will be initiated today For now continues empirically on Primaxin. Dexamethasone. Status: Acute (3) Acute respiratory failure with hypoxia: Appears is slowly improving. Status: Acute (4) Pulmonary hypertension: Status: Acute (5) Community acquired pneumonia: He completed 7 days of vancomycin and Zosyn. MRSA PCR was negative of his nares. IV antibiotics were discontinued on October 26 IV antibiotics were reinitiated 10/30 secondary to his decompensation. However, with significant improvement with diuresis. Vancomycin was stopped. Continues on Primaxin only currently. Status: Acute (6) Atrial fibrillation: Rate controlled Continue amiodarone Carvedilol dose was reduced secondary to bradycardia Status: Acute Qualifiers: Atrial fibrillation type: longstanding persistent Qualified Code(s): I48.11 - Longstanding persistent atrial fibrillation (7) Acute kidney injury superimposed on CKD: Creatinine currently appears to be better than his baseline which appears to be around 1.6-2 At this time continue diuresis above. Monitor renal function. EB. Lisinopril discontinued secondary to concerns of worsening renal function while in the hospital. Status: Acute (8) Diabetes: With addition of dexamethasone glucose has increased significantly Has been persistently hyperglycemic since restarting dexamethasone. Glucose ranging 300s-500s. Previously episodes of hypoglycemia. Lantus to 20 units, for now will continue unchanged. Will increase sliding scale to aggressive. Monitor glucose, with low threshold for de-escalation on discontinuation of steroid. 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 transplanted heart: [place] heart Associated angina: without angina Qualified Code(s): I25.10 - Atherosclerotic heart disease of [place] coronary artery without angina pectoris (10) Hypertension: Fair control Status: Acute Qualifiers: Hypertension type: essential hypertension Qualified Code(s): I10 - Essential (primary) hypertension (11) Hyperlipidemia: Status: Acute Qualifiers: Hyperlipidemia type: mixed hyperlipidemia Qualified Code(s): E78.2 - Mixed hyperlipidemia (12) CHF (congestive heart failure): Lasix 40 mg twice daily. Monitor I&O. He is in negative balance. Currently has been diuresing pretty well. Will continue same dose of Lasix at this time. He appears to be still over 7 kg above his admission weight. Status: Acute Qualifiers: Heart failure type: diastolic Heart failure chronicity: chronic Qualified Code(s): I50.32 - Chronic diastolic (congestive) heart failure (13) Elevated CK: Statin held secondary to mild rhabdo on admission Status: Acute (14) Transaminitis: Resolved. Likely secondary to COVID Status: Acute Additional A&P Information Constipation: Had bowel regimen. Allow natural Eliquis will suffice for DVT prophylaxis Attestations Medical Necessity Statement*: Continue admission for assessment management of hypoxic respiratory failure secondary viral pneumonia due to COVID-19. CHF exacerbation. In the setting of chronic kidney disease, and other comorbidities as outlined above. Coding Level of Care Code Acute Mental Health Coordinator for [facility] Diagnoses COVID-19 U07.1 ARDS (adult respiratory distress syndrome) J80 Acute respiratory failure with hypoxia J96.01 Pulmonary hypertension I27.20 Community acquired pneumonia J18.9 Atrial fibrillation I48.11 Atrial fibrillation type: longstanding persistent Acute kidney injury superimposed on CKD N17.9; N18.9 Diabetes E11.65; Z79.4 Diabetes mellitus type: type 2 Diabetes mellitus long-term insulin use: with computer terminal operator use Diabetes mellitus complication status: with hyperglycemia CAD (coronary artery disease) I25.10 Coronary Disease-Associated Artery/Lesion type: [place] artery [place] vs. transplanted heart: [place] heart Associated angina: without angina Hypertension I10 Hypertension type: essential hypertension Hyperlipidemia E78.2 Hyperlipidemia type: mixed hyperlipidemia CHF (congestive heart failure) I50.32 Heart failure type: diastolic Heart failure chronicity: chronic Elevated CK R74.8 Transaminitis R74.0
[2019-11-02] MEDS: insulin glargine 100 units/1 mL 20 UNIT SUBCUT (20:20)
[2019-11-02 21:59] LABS: Glucose Point of Care 431 mg/dL (70-110)
[2019-11-03] VITALS (28 sets, daily range): BP systolic 104–144; BP diastolic 68–81; PULSE 53–90; RESP 2–29; TEMP 36.6–36.7; O2SAT 91–98
[2019-11-03 05:53] LABS: D Dimer 0.31 ug/mIFEU (0-0.59)
[2019-11-03 05:55] LABS: Anion Gap 13.7 (5-19); Blood Urea Nitrogen 56 mg/dL (8-23); C Reactive Protein 50.2 mg/L (0.0-4.9); Calcium 8.7 mg/dL (8.5-10.5); Carbon Dioxide 26 mmol/L (22-29); Chloride 97 mmol/L (98-107); Glucose 295 mg/dL (65-115); Lactate Dehydrogenase 380 U/L (135-225); Osmolality Calculated 283 mOsm/kg (285-295); Potassium 4.7 mmol/L (3.5-5.1); Sodium 132 mmol/L (136-145)
[2019-11-03 05:56] LABS: Basophils % 0.1 %; Hematocrit 41.5 % (42.0-52.0); Hemoglobin 13.4 g/dL (11.7-16.6); Lymphocytes # 0.9 10^3/uL (0.8-4.8); Lymphocytes % 6.6 %; Mean Corpuscular HGB Conc 32.3 g/dL (30.0-36.0); Mean Corpuscular Hemoglobin 30.5 pg (28.0-34.0); Mean Corpuscular Volume 94.3 fL (80-94); Mean Platelet Volume 10.2 fL (7.4-10.4); Monocytes # 0.9 10^3/uL (0.2-0.9); Neutrophils % 86.8 %; Nucleated Red Blood Cells % 0 %; Platelet Count 238 10^3/cmm (130-400); Red Cell Distribution Width 12.5 % (12.1-15.1); White Blood Count 14.3 10^3/uL (4.0-10.0)
[2019-11-03 07:36] LABS: Glucose Point of Care 382 mg/dL (70-110)
[2019-11-03] MEDS: FUROsemide 40 mg Tablet PO ×2 (07:59→16:03)
[2019-11-03] MEDS: albuterol 8 gm MDI 4 PUFF INHALATION ×2 (08:52→22:02)
--- NOTE | 2019-11-03 09:29 | PC.SOCIAL ---
IMM Updated Updated pt by phone, on Pg 2 IMM. Pt verbally understands. No questions voiced. Provided pt a copy. Signed, dated, & timed copy to be placed in chart.
[2019-11-03] MEDS: carvedilol 3.125 mg Tablet PO ×2 (09:55→17:40)
[2019-11-03] MEDS: amiodarone 200 mg Tablet PO (09:55)
[2019-11-03] MEDS: apixaban 5 mg Tablet PO ×2 (09:55→17:40)
[2019-11-03] MEDS: pantoprazole DR 40 mg Tablet PO (09:55)
[2019-11-03] MEDS: thiamine 100 mg Tablet PO ×2 (09:55→17:41)
[2019-11-03] MEDS: polyethylene glycol 3350 Pkt 17 gm PO ×2 (09:55→17:41)
[2019-11-03] MEDS: amlodipine 10 mg Tablet PO (09:55)
[2019-11-03] MEDS: clopidogrel 75 mg Tablet PO (09:55)
[2019-11-03] MEDS: ascorbic acid 500 mg Tablet PO (09:55)
[2019-11-03] MEDS: dexamethasone 10 mg/mL INJ 6 MG IVP (10:10)
[2019-11-03 12:21] LABS: Glucose Point of Care 408 mg/dL (70-110)
--- NOTE | 2019-11-03 12:23 | PC.NURSE ---
NOTIFIED DR TANG DUE TO PT BLOOD SUGAR OF 408. DR TANG GAVE A TELEPHONE ORDERED TO STOP DEXAMETHASONE 6MG IVP AND GIVE 20 UNITS OF INSULIN AT THIS TIME.
--- NOTE | 2019-11-03 17:34 | PM.PN ---
Subjective Subjective: Interval history: Improving. Tried doing a little bit of standing exercise today. Not very mobile. Says mostly has been staying sedentary. Breathing gradually improving. Vitals/I&O/Wt Last Vital Signs Temp 98.0 F 11/03/19 07:35 Pulse 65 11/03/19 16:00 Resp 17 11/03/19 16:00 BP 144/79 11/03/19 16:00 Pulse Ox 91 11/03/19 16:00 11/03/19 11/03/19 11/03/19 06:59 14:59 22:59 Intake Total 100 / 1979 720 / 720 Output Total 250 / 2100 1720 / 1720 Balance -150 / -120 -1000 / -1000 Weight last 48 hrs Weight 114.305 kg Physical Exam Const: COMMON NORMALS: no acute distress and patient oriented x3 NUTRITIONAL APPEARANCE: overweight HENMT: COMMON NORMALS: oropharynx normal Neck/C-Spine: COMMON NORMALS: no JVD Resp: COMMON NORMALS: normal respiratory effort AUSCULTATION: rales (Few faint rales at the left base.) and diminished lung sounds Cardio: COMMON NORMALS: no JVD, regular rhythm, S1 normal heart sound present, S2 normal heart sound present and No murmurs present (Cardio) RHYTHM: regular rhythm HEART SOUNDS: S1 normal heart sound present and S2 normal heart sound present GI: COMMON NORMALS: Normal to inspection, nondistended, normoactive bowel sounds present, Soft to palpation and non-tender PALPATION: Yes Soft to palpation Extremity: COMMON NORMALS: no joint enlargement GENERAL: Yes edema (4+) Neuro: COMMON NORMALS: patient oriented x3 and moves all extremities Skin: COMMON NORMALS: no rashes or lesions noted GENERAL SKIN EXAM: no rashes or lesions noted Urinary Catheter Management^: Blandon: Cath Placed During This Visit: yes, but has since been removed by the nurse Reason for Continuing Indwelling Catheter: Not indwelling catheter Urinary Catheter Date of Insertion: 10/20/19 Urinary Catheter Time of Insertion: 10:45 Date Urinary Catheter Removed: 10/27/19 Time Urinary Catheter Discontinued: 17:46 Data : 11/03/19 04:30 11/03/19 04:30 A&P Assessment and plan (1) COVID-19: Oxygenation is gradually improving. Last test was positive on reapeat from 10/28. Per discussion with pulmonology would wait to repeat until 7 days later, which will be 11/04. Currently denies any significant cough, chest pain or pressure. Will DC steroid. Persistent severe LE edema. He has been diuresing well, as well and is in negative balance, and perhaps this is helping with his oxygenation as well. Prone as tolerating. Status: Acute (2) ARDS (adult respiratory distress syndrome): Improved Continue to wean O2 Continue Lasix, 40 mg twice daily will be initiated today For now continues empirically on Primaxin. Dexamethasone last dose today. Status: Acute (3) Acute respiratory failure with hypoxia: Appears is slowly improving. Status: Acute (4) Pulmonary hypertension: Status: Acute (5) Community acquired pneumonia: He completed 7 days of vancomycin and Zosyn. MRSA PCR was negative of his nares. IV antibiotics were discontinued on October 26 IV antibiotics were reinitiated 10/30 secondary to his decompensation. However, with significant improvement with diuresis. Vancomycin was stopped. Continues on Primaxin only currently. Status: Acute (6) Atrial fibrillation: Rate controlled Continue amiodarone Carvedilol dose was reduced secondary to bradycardia Status: Acute Qualifiers: Atrial fibrillation type: longstanding persistent Qualified Code(s): I48.11 - Longstanding persistent atrial fibrillation (7) Acute kidney injury superimposed on CKD: Creatinine currently appears to be baseline which appears to be around 1.6-2 At this time continue diuresis above. Monitor renal function. EB. Lisinopril discontinued secondary to concerns of worsening renal function while in the hospital. Status: Acute (8) Diabetes: With addition of dexamethasone glucose has increased significantly Has been persistently hyperglycemic since restarting dexamethasone. Glucose ranging 300s-500s. Previously episodes of hypoglycemia. Lantus to 20 units, for now will continue unchanged. No increase as stopping dexamethasone after today. At home on 72 units. Aggressive SSI for now, but likely will need to change tomorrow. Monitor glucose, with low threshold for de-escalation on discontinuation of steroid. Status: Acute Qualifiers: Diabetes mellitus type: type 2 Diabetes mellitus senior care insulin use: with ferry terminal supervisor use Diabetes mellitus complication status: with hyperglycemia Qualified Code(s): E11.65 - Type 2 diabetes mellitus with hyperglycemia; Z79.4 - predatory animal exterminator (current) use of insulin (9) CAD (coronary artery disease): Asymptomatic Status: Acute Qualifiers: Coronary Disease-Associated Artery/Lesion type: [place] artery [place] vs. transplanted heart: [place] heart Associated angina: without angina Qualified Code(s): I25.10 - Atherosclerotic heart disease of [place] coronary artery without angina pectoris (10) Hypertension: Fair control Status: Acute Qualifiers: Hypertension type: essential hypertension Qualified Code(s): I10 - Essential (primary) hypertension (11) Hyperlipidemia: Status: Acute Qualifiers: Hyperlipidemia type: mixed hyperlipidemia Qualified Code(s): E78.2 - Mixed hyperlipidemia (12) CHF (congestive heart failure): Lasix 40 mg twice daily. Monitor I&O. He is in negative balance. Currently has been diuresing pretty well. Will continue same dose of Lasix at this time. He appears to be still over 7 kg above his admission weight. Status: Acute Qualifiers: Heart failure type: diastolic Heart failure chronicity: chronic Qualified Code(s): I50.32 - Chronic diastolic (congestive) heart failure (13) Elevated CK: Statin held secondary to mild rhabdo on admission Status: Acute (14) Transaminitis: Resolved. Likely secondary to COVID Status: Acute Additional A&P Information Constipation: Had bowel mvmt with bowel regimen. Physical deconditioning: He has been mostly immobile during the hospitalization with physical deconditioning. He has tried standing up with nursing today. We will inquire regarding how he can be evaluated by PT and if qualifying for rehabilitation whether could be placed at SNF to undergo this given he is otherwise improving. If that is not an option would be limited to returning home unless is retested for nugyen virus and returns negative. Allow natural Eliquis will suffice for DVT prophylaxis Attestations Medical Necessity Statement*: Continue admission for assessment and management of hypoxic respiratory failure secondary to viral pneumonia with COVID-19. CHF exacerbation. Coding Level of Care Code Acute Insulation Sprayer for [facility] Diagnoses COVID-19 U07.1 ARDS (adult respiratory distress syndrome) J80 Acute respiratory failure with hypoxia J96.01 Pulmonary hypertension I27.20 Community acquired pneumonia J18.9 Atrial fibrillation I48.11 Atrial fibrillation type: longstanding persistent Acute kidney injury superimposed on CKD N17.9; N18.9 Diabetes E11.65; Z79.4 Diabetes mellitus type: type 2 Diabetes mellitus ferry terminal supervisor insulin use: with senior care use Diabetes mellitus complication status: with hyperglycemia CAD (coronary artery disease) I25.10 Coronary Disease-Associated Artery/Lesion type: [place] artery [place] vs. transplanted heart: [place] heart Associated angina: without angina Hypertension I10 Hypertension type: essential hypertension Hyperlipidemia E78.2 Hyperlipidemia type: mixed hyperlipidemia CHF (congestive heart failure) I50.32 Heart failure type: diastolic Heart failure chronicity: chronic Elevated CK R74.8 Transaminitis R74.0
[2019-11-03 18:01] LABS: Glucose Point of Care 340 mg/dL (70-110)
[2019-11-03 21:13] LABS: Glucose Point of Care 328 mg/dL (70-110)
[2019-11-03] MEDS: insulin glargine 100 units/1 mL 20 UNIT SUBCUT (22:00)
[2019-11-04] VITALS (27 sets, daily range): BP systolic 117–142; BP diastolic 62–85; PULSE 50–96; RESP 2–24; TEMP 36.6–36.7; O2SAT 88–97; BMI 36.1
[2019-11-04 05:16] LABS: Anion Gap 11.8 (5-19); Blood Urea Nitrogen 60 mg/dL (8-23); Calcium 8.3 mg/dL (8.5-10.5); Carbon Dioxide 27 mmol/L (22-29); Chloride 101 mmol/L (98-107); Glucose 288 mg/dL (65-115); Osmolality Calculated 289 mOsm/kg (285-295); Potassium 4.8 mmol/L (3.5-5.1); Sodium 135 mmol/L (136-145)
[2019-11-04] MEDS: amlodipine 10 mg Tablet PO (08:17)
[2019-11-04] MEDS: ascorbic acid 500 mg Tablet PO (08:17)
[2019-11-04] MEDS: FUROsemide 40 mg Tablet PO ×2 (08:17→16:39)
[2019-11-04] MEDS: amiodarone 200 mg Tablet PO (08:17)
[2019-11-04] MEDS: apixaban 5 mg Tablet PO ×2 (08:17→17:14)
[2019-11-04] MEDS: carvedilol 3.125 mg Tablet PO ×2 (08:18→17:14)
[2019-11-04] MEDS: clopidogrel 75 mg Tablet PO (08:18)
[2019-11-04] MEDS: pantoprazole DR 40 mg Tablet PO (08:18)
[2019-11-04] MEDS: thiamine 100 mg Tablet PO ×2 (08:19→17:14)
[2019-11-04] MEDS: polyethylene glycol 3350 Pkt 17 gm PO (08:19)
[2019-11-04 09:02] LABS: Glucose Point of Care 370 mg/dL (70-110)
[2019-11-04 11:30] LABS: Glucose Point of Care 459 mg/dL (70-110)
--- NOTE | 2019-11-04 12:22 | PC.PT ---
PT note; PT evaluation on hold, awaiting negative covid testing, would be glad to provide written suggested exercise program in meanwhile if contacted regarding same.
[2019-11-04 16:57] LABS: Glucose Point of Care 170 mg/dL (70-110)
--- NOTE | 2019-11-04 20:04 | PM.PN ---
Subjective Subjective: Interval history: He got up and walked more with a walker today with standby assist, walking into the hallway. He denies shortness of breath. Denies cough. He is overall continuing to improve. Vitals/I&O/Wt Last Vital Signs Temp 97.8 F 11/04/19 16:00 Pulse 78 11/04/19 16:00 Resp 18 11/04/19 16:00 BP 131/62 11/04/19 16:00 Pulse Ox 93 11/04/19 16:00 11/04/19 11/04/19 11/04/19 06:59 14:59 22:59 Intake Total 160 / 1680 700 / 700 500 / 1200 Output Total 1275 / 3570 1050 / 1050 750 / 1800 Balance -1115 / -1890 -350 / -350 -250 / -600 Weight last 48 hrs Weight 111.13 kg Weight 111.13 kg Physical Exam Const: COMMON NORMALS: no acute distress and patient oriented x3 NUTRITIONAL APPEARANCE: overweight HENMT: COMMON NORMALS: oropharynx normal Neck/C-Spine: COMMON NORMALS: no JVD Resp: COMMON NORMALS: normal respiratory effort AUSCULTATION: rales (Few faint rales at the left base.) and diminished lung sounds Cardio: COMMON NORMALS: no JVD, regular rhythm, S1 normal heart sound present, S2 normal heart sound present and No murmurs present (Cardio) RHYTHM: regular rhythm HEART SOUNDS: S1 normal heart sound present and S2 normal heart sound present GI: COMMON NORMALS: Normal to inspection, nondistended, normoactive bowel sounds present, Soft to palpation and non-tender PALPATION: Yes Soft to palpation Extremity: COMMON NORMALS: no joint enlargement GENERAL: Yes edema (3+) Neuro: COMMON NORMALS: patient oriented x3 and moves all extremities Skin: COMMON NORMALS: no rashes or lesions noted GENERAL SKIN EXAM: no rashes or lesions noted Urinary Catheter Management^: [place]on: Cath Placed During This Visit: yes, but has since been removed by the nurse Reason for Continuing Indwelling Catheter: Not indwelling catheter Urinary Catheter Date of Insertion: 10/20/19 Urinary Catheter Time of Insertion: 10:45 Date Urinary Catheter Removed: 10/27/19 Time Urinary Catheter Discontinued: 17:46 Data : 11/03/19 04:30 11/04/19 04:15 A&P Assessment and plan (1) COVID-19: Oxygenation stabilized. Saturating in low 90s on 1.5L. He appears to be becoming more mobile, walking with standby assist with a walker, including out into the hallway. He says that felt comfortable. Fortunately we cannot get assessment by PT down in [place]. Given he continues to improve, he is interested in running home. group home placement at this time would not be possible while he is in isolation. Discussed with him and his daughter, we may repeat testing tomorrow morning. If he is still doing well, we will also test with home oxygen evaluation, and potentially may set up, seen for him, possibly returning home while pending additional testing for this continuation of isolation. He says that at home he lives in an apartment in the basement which is segregated from his family with his daughter and her family living upstairs. He would be nice patient near, with family available for any assistance. We will try to arrange for home health for him as well. Physical therapy if possible, and otherwise nursing assessment for vital checks, and recheck of renal function in 3-4 days. Discussed with his daughter isolation will need to be pain, and mask worn by him and her, as well as close by her case they needed to be in contact. Issues, utensils, or other objects coming in contact would need to be is infected. They would monitor his oxygenation with target saturation of 90% or above, and with low threshold to return to hospital in case of worsening of hypoxia, shortness of breath, high fevers, or other symptoms. Patient daughter both verbalized understanding. We will need to find out also where he could have his second test done to confirm negative status, and that this can be done at [place] [facility]. Currently denies any significant cough, chest pain or pressure. DC'd steroid. Persistent severe LE edema slowly improving. He has been diuresing well, as well and is in negative balance, and perhaps this is helping with his oxygenation as well. Mobilize. Status: Acute (2) ARDS (adult respiratory distress syndrome): Improved Continue to wean O2 Continue Lasix, 40 mg twice daily will be initiated today For now continues empirically on Primaxin. Dexamethasone stopped. Status: Acute (3) Acute respiratory failure with hypoxia: Appears is slowly improving. Status: Acute (4) Pulmonary hypertension: Status: Acute (5) Community acquired pneumonia: He completed 7 days of vancomycin and Zosyn. MRSA PCR was negative of his nares. IV antibiotics were discontinued on October 26 IV antibiotics were reinitiated 10/30 secondary to his decompensation. However, with significant improvement with diuresis. Vancomycin was stopped. Continues on Primaxin only currently. Status: Acute (6) Atrial fibrillation: Rate controlled Continue amiodarone Carvedilol dose was reduced secondary to bradycardia Status: Acute Qualifiers: Atrial fibrillation type: longstanding persistent Qualified Code(s): I48.11 - Longstanding persistent atrial fibrillation (7) Acute kidney injury superimposed on CKD: Creatinine currently appears to be baseline which appears to be around 1.6-2 At this time continue diuresis above. Monitor renal function. EB. Lisinopril discontinued secondary to concerns of worsening renal function while in the hospital. Status: Acute (8) Diabetes: Glucose now is better, down to 200s, down as low as 1 set any without change in Lantus. Expect this should continue to improve since steroid been discontinued. Has been persistently hyperglycemic since restarting dexamethasone. Glucose ranging 300s-500s. Previously episodes of hypoglycemia. Lantus to 20 units, for now will continue unchanged. No increase as stopping dexamethasone after today. At home on 72 units. Aggressive SSI for now, but likely will need to change tomorrow. Monitor glucose, with low threshold for de-escalation on discontinuation of steroid. Status: Acute Qualifiers: Diabetes mellitus type: type 2 Diabetes mellitus usp insulin use: with long term care administrator use Diabetes mellitus complication status: with hyperglycemia Qualified Code(s): E11.65 - Type 2 diabetes mellitus with hyperglycemia; Z79.4 - manager terminal (current) use of insulin (9) CAD (coronary artery disease): Asymptomatic Status: Acute Qualifiers: Coronary Disease-Associated Artery/Lesion type: [place] artery [place] vs. transplanted heart: [place] heart Associated angina: without angina Qualified Code(s): I25.10 - Atherosclerotic heart disease of [place] coronary artery without angina pectoris (10) Hypertension: Fair control Status: Acute Qualifiers: Hypertension type: essential hypertension Qualified Code(s): I10 - Essential (primary) hypertension (11) Hyperlipidemia: Status: Acute Qualifiers: Hyperlipidemia type: mixed hyperlipidemia Qualified Code(s): E78.2 - Mixed hyperlipidemia (12) CHF (congestive heart failure): Lasix 40 mg twice daily. Monitor I&O. He is in negative balance. Currently has been diuresing pretty well. Will continue same dose of Lasix at this time. He appears to be still over 7 kg above his admission weight. We will transition him to oral Lasix on discharge, with recheck renal function in 3-4 days. Status: Acute Qualifiers: Heart failure type: diastolic Heart failure chronicity: chronic Qualified Code(s): I50.32 - Chronic diastolic (congestive) heart failure (13) Elevated CK: Statin held secondary to mild rhabdo on admission Status: Acute (14) Transaminitis: Resolved. Likely secondary to COVID Status: Acute Additional A&P Information Constipation: Improvement with bowel regimen. Physical deconditioning: He appears to be progressing well, yesterday did some standing exercises today with standby assistance getting up with a walker, walking in the room, out into the hallway. Says that felt good. group home placement this time is not an option. Given he is interested in returning home, and continues to improve in terms of his oxygenation, and also appears to be making good progress in terms of mobility, has good support at home with family living upstairs, and perhaps we may be able to get home health for him as well, discussed with him and his daughter that returning home with support may be reasonable. Allow natural Eliquis will suffice for DVT prophylaxis Attestations Medical Necessity Statement*: Continue admission for cyst management of hypoxic respiratory failure, viral pneumonia secondary to COVID-19, CHF exacerbation, in setting of CKD, other chronic problems, disposition planning. Coding Level of Care Code Acute Chronic Specialist for [facility] Diagnoses COVID-19 U07.1 ARDS (adult respiratory distress syndrome) J80 Acute respiratory failure with hypoxia J96.01 Pulmonary hypertension I27.20 Community acquired pneumonia J18.9 Atrial fibrillation I48.11 Atrial fibrillation type: longstanding persistent Acute kidney injury superimposed on CKD N17.9; N18.9 Diabetes E11.65; Z79.4 Diabetes mellitus type: type 2 Diabetes mellitus usp insulin use: with long term care administrator use Diabetes mellitus complication status: with hyperglycemia CAD (coronary artery disease) I25.10 Coronary Disease-Associated Artery/Lesion type: [place] artery [place] vs. transplanted heart: [place] heart Associated angina: without angina Hypertension I10 Hypertension type: essential hypertension Hyperlipidemia E78.2 Hyperlipidemia type: mixed hyperlipidemia CHF (congestive heart failure) I50.32 Heart failure type: diastolic Heart failure chronicity: chronic Elevated CK R74.8 Transaminitis R74.0
[2019-11-04 20:08] LABS: Glucose Point of Care 225 mg/dL (70-110)
[2019-11-04] MEDS: insulin glargine 100 units/1 mL 20 UNIT SUBCUT (21:31)
[2019-11-05] VITALS (14 sets, daily range): BP systolic 118–143; BP diastolic 68–84; PULSE 55–80; RESP 14–26; TEMP 36.6–36.8; O2SAT 85–97; BMI 35.1
[2019-11-05 05:38] LABS: Blood Urea Nitrogen 53 mg/dL (8-23); Calcium 8.8 mg/dL (8.5-10.5); Carbon Dioxide 28 mmol/L (22-29); Chloride 101 mmol/L (98-107); Glucose 133 mg/dL (65-115); Osmolality Calculated 284 mOsm/kg (285-295); Sodium 137 mmol/L (136-145)
[2019-11-05 07:30] LABS: Glucose Point of Care 110 mg/dL (70-110)
[2019-11-05] MEDS: FUROsemide 40 mg Tablet PO ×2 (08:15→16:04)
[2019-11-05] MEDS: apixaban 5 mg Tablet PO ×2 (08:15→17:07)
[2019-11-05] MEDS: amlodipine 10 mg Tablet PO (08:15)
[2019-11-05] MEDS: amiodarone 200 mg Tablet PO (08:15)
[2019-11-05] MEDS: ascorbic acid 500 mg Tablet PO (08:16)
[2019-11-05] MEDS: pantoprazole DR 40 mg Tablet PO (08:16)
[2019-11-05] MEDS: thiamine 100 mg Tablet PO ×2 (08:16→17:07)
[2019-11-05] MEDS: clopidogrel 75 mg Tablet PO (08:16)
[2019-11-05] MEDS: carvedilol 3.125 mg Tablet PO ×2 (08:16→17:07)
[2019-11-05 11:31] LABS: Glucose Point of Care 204 mg/dL (70-110)
--- NOTE | 2019-11-05 12:59 | PC.SOCIAL ---
IMM Updated Page 2 of IMM updated. Initialed, dated and timed and asked the COVID unit nurse to place back in chart and provide a copy for patient.
[2019-11-05 16:21] LABS: Glucose Point of Care 208 mg/dL (70-110)
--- NOTE | 2019-11-05 18:51 | P.PN_ITS ---
Subjective Subjective: Interval history: He is feeling well. No shortness of breath. No chest pain. Doing well on 2L NC at rest. Vitals/I&O/Wt Last Vital Signs Temp 98.3 F 11/05/19 16:00 Pulse 72 11/05/19 16:00 Resp 14 11/05/19 16:00 BP 121/71 11/05/19 16:00 Pulse Ox 95 11/05/19 16:00 11/05/19 11/05/19 11/05/19 06:59 14:59 22:59 Intake Total 200 / 1500 650 / 650 500 / 1150 Output Total 1200 / 3325 700 / 700 250 / 950 Balance -1000 / -1825 -50 / -50 250 / 200 Weight last 48 hrs Weight 107.955 kg Weight 111.13 kg Weight 111.13 kg Physical Exam Const: COMMON NORMALS: no acute distress and patient oriented x3 NUTRITIONAL APPEARANCE: overweight HENMT: COMMON NORMALS: oropharynx normal Neck/C-Spine: COMMON NORMALS: no JVD Resp: COMMON NORMALS: normal respiratory effort AUSCULTATION: rales (Few faint rales at the left base.) and diminished lung sounds Cardio: COMMON NORMALS: no JVD, regular rhythm, S1 normal heart sound present, S2 normal heart sound present and No murmurs present (Cardio) RHYTHM: regular rhythm HEART SOUNDS: S1 normal heart sound present and S2 normal heart sound present GI: COMMON NORMALS: Normal to inspection, nondistended, normoactive bowel sounds present, Soft to palpation and non-tender PALPATION: Yes Soft to palpation Extremity: COMMON NORMALS: no joint enlargement GENERAL: Yes edema (3+) Neuro: COMMON NORMALS: patient oriented x3 and moves all extremities Skin: COMMON NORMALS: no rashes or lesions noted GENERAL SKIN EXAM: no rashes or lesions noted Urinary Catheter Management^: [place]: Cath Placed During This Visit: yes, but has since been removed by the nurse Reason for Continuing Indwelling Catheter: Not indwelling catheter Urinary Catheter Date of Insertion: 10/20/19 Urinary Catheter Time of Insertion: 10:45 Date Urinary Catheter Removed: 10/27/19 Time Urinary Catheter Discontinued: 17:46 Data : 11/03/19 04:30 11/05/19 04:10 A&P Assessment and plan (1) COVID-19: Needing 3L by home O2 eval. Unfortunately home O2 could not be arranged for him to leave today. Discussed his hospitalization, condition and discharge with his primary care provider dr Muñiz who will be expecting to follow up with him as well as to follow-up on 20 discontinue isolation. Follow-up on his volume status, diuresis, peripheral edema, as well as renal function. 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 Discussed also with his daughter again with regards to monitoring oxygenation, looking out for complications, as well as ongoing isolation and additional testing of clearance of infection. Repeat cotesting was done early this morning, and if this test is negative, sometime tomorrow or after that would be able to return either to ER or urgent care to have subsequent confirmatory test and if negative isolation may be discontinued. Discussed with the patient that unfortunately this is not offered at [facility]. He is otherwise doing well, at rest currently stable on 2 L of oxygen. He is off steroids. We will go ahead and discontinue Primaxin. Home health will be arranged for him through [facility]. A walker is ordered for him as well to allow for mobility at home. Physical therapy if possible, and otherwise nursing assessment for vital checks, and recheck of renal function in 3-4 days. Discussed with his daughter isolation will need to be pain, and mask worn by him and her, as well as close by her case they needed to be in contact. Issues, utensils, or other objects coming in contact would need to be is infected. They would monitor his oxygenation with target saturation of 90% or above, and with low threshold to return to hospital in case of worsening of hypoxia, shortness of breath, high fevers, or other symptoms. Patient daughter both verbalized understanding. We will need to find out also where he could have his second test done to confirm negative status, and that this can be done at [facility]. Currently denies any significant cough, chest pain or pressure. DC'd steroid. Persistent severe LE edema slowly improving. He has been diuresing well, as well and is in negative balance, and perhaps this is helping with his oxygenation as well. Mobilize. Status: Acute (2) ARDS (adult respiratory distress syndrome): Improved Continue to wean O2 Continue Lasix, 40 mg twice daily will be initiated today DC Primaxin. Dexamethasone stopped. Status: Acute (3) Acute respiratory failure with hypoxia: Appears is slowly improving. Status: Acute (4) Pulmonary hypertension: Status: Acute (5) Community acquired pneumonia: He completed 7 days of vancomycin and Zosyn. MRSA PCR was negative of his nares. IV antibiotics were discontinued on October 26 IV antibiotics were reinitiated 10/30 secondary to his decompensation. However, with significant improvement with diuresis. Vancomycin was stopped. Stop Primaxin. Status: Acute (6) Atrial fibrillation: Rate controlled Continue amiodarone Carvedilol dose was reduced secondary to bradycardia Status: Acute Qualifiers: Atrial fibrillation type: longstanding persistent Qualified Code(s): I48.11 - Longstanding persistent atrial fibrillation (7) Acute kidney injury superimposed on CKD: Creatinine currently appears to be baseline which appears to be around 1.6-2 At this time continue diuresis above. Monitor renal function. EB. Lisinopril discontinued secondary to concerns of worsening renal function while in the hospital. Status: Acute (8) Diabetes: Glucose now is better, down to 200s, down as low as 1 set any without change in Lantus. Expect this should continue to improve since steroid been discontinued. Has been persistently hyperglycemic since restarting dexamethasone. Glucose ranging 300s-500s. Previously episodes of hypoglycemia. Lantus to 20 units, for now will continue unchanged. No increase as stopping dexamethasone after today. At home on 72 units. Aggressive SSI for now, but likely will need to change tomorrow. Monitor glucose, with low threshold for de-escalation on discontinuation of steroid. Status: Acute Qualifiers: Diabetes mellitus complication status: with hyperglycemia Diabetes mellitus senior care insulin use: with watermelon harvesting supervisor use Diabetes mellitus type: type 2 Qualified Code(s): E11.65 - Type 2 diabetes mellitus with hyperglycemia; Z79.4 - custodial (current) use of insulin (9) CAD (coronary artery disease): Asymptomatic Status: Acute Qualifiers: Associated angina: without angina Coronary Disease-Associated Artery/Lesion type: [place] artery [place] vs. transplanted heart: [place] heart Qualified Code(s): I25.10 - Atherosclerotic heart disease of [place] coronary art heath without angina pectoris (10) Hypertension: Fair control. We may need to go with a different antihypertensive than amlodipine due to peripheral edema. Discussed with patient. We do not have much room to increase amlodipine dose due to intermittent bradycardia. Status: Acute Qualifiers: Hypertension type: essential hypertension Qualified Code(s): I10 - Essential (primary) hypertension (11) Hyperlipidemia: Status: Acute Qualifiers: Hyperlipidemia type: mixed hyperlipidemia Qualified Code(s): E78.2 - Mixed hyperlipidemia (12) CHF (congestive heart failure): Lasix 40 mg twice daily. Monitor I&O. He is in negative balance. Currently has been diuresing pretty well. Will continue same dose of Lasix at this time. He appears to be still over 7 kg above his admission weight. We will transition him to oral Lasix on discharge, with recheck renal function in 3-4 days. Status: Acute Qualifiers: Heart failure chronicity: chronic Heart failure type: diastolic Qualified Code(s): I50.32 - Chronic diastolic (congestive) heart failure (13) Elevated CK: Statin held secondary to mild rhabdo on admission Status: Acute (14) Transaminitis: Resolved. Likely secondary to COVID Status: Acute Additional A&P Information Constipation: Improvement with bowel regimen. Physical deconditioning: He appears to be progressing well, yesterday did some standing exercises today with standby assistance getting up with a walker, walking in the room, out into the hallway. Says that felt good. senior care placement this time is not an option. Given he is interested in returning home, and continues to improve in terms of his oxygenation, and also appears to be making good progress in terms of mobility, has good support at home with family living upstairs, and perhaps we may be able to get home health for him as well, discussed with him and his daughter that returning home with support may be reasonable. Allow natural Eliquis will suffice for DVT prophylaxis Attestations Medical Necessity Statement*: Continue admission for disposition arrangements for discharge home to continue recovery from viral pneumonia, COVID-19 infection, CHF exacerbation and other conditions as above. Coding Level of Care Code Acute Supervisor [employer] for g Fwd Exam Comprehensive Diagnoses COVID-19 U07.1 ARDS (adult respiratory distress syndrome) J80 Acute respiratory failure with hypoxia J96.01 Pulmonary hypertension I27.20 Community acquired pneumonia J18.9 Atrial fibrillation I48.11 Atrial fibrillation type: longstanding persistent Acute kidney injury superimposed on CKD N17.9; N18.9 Diabetes E11.65; Z79.4 Diabetes mellitus complication status: with hyperglycemia Diabetes mellitus senior care insulin use: with senior care use Diabetes mellitus type: type 2 CAD (coronary artery disease) I25.10 Associated angina: without angina Coronary Disease-Associated Artery/Lesion type: [place] artery [place] vs. transplanted heart: [place] heart Hypertension I10 Hypertension type: essential hypertension Hyperlipidemia E78.2 Hyperlipidemia type: mixed hyperlipidemia CHF (congestive heart failure) I50.32 Heart failure chronicity: chronic Heart failure type: diastolic Elevated CK R74.8 Transaminitis R74.0
[2019-11-05 20:05] LABS: Glucose Point of Care 176 mg/dL (70-110)
[2019-11-05] MEDS: insulin glargine 100 units/1 mL 20 UNIT SUBCUT (21:01)
[2019-11-06] VITALS (8 sets, daily range): BP systolic 101–119; BP diastolic 66–75; PULSE 61–78; RESP 16–24; TEMP 36.5–36.8; O2SAT 94–98
[2019-11-06 07:28] LABS: Glucose Point of Care 119 mg/dL (70-110)
[2019-11-06] MEDS: FUROsemide 40 mg Tablet PO ×2 (07:45→17:41)
--- NOTE | 2019-11-06 07:45 | PC.NURSE ---
Initial Rounding Pt is sitting in his recliner. Denies any pain or discomfort. Not in respiratory distress. # L/min NC on. Tele-monitor shows Afib in 60s to 70s rate. Pt denies any need at this time. He said, he will do shaving. Instructed pt to call nurse if he has any needs or concerns. Pt verbalizes understanding.
--- NOTE | 2019-11-06 07:54 | PC.NURSE ---
Small weep from pitting Edema When pressed for degree of pitting edema noted minimal weeping on right lower leg. Serous drainage. Skin is intact. Will monitor.
[2019-11-06] MEDS: amiodarone 200 mg Tablet PO (09:35)
[2019-11-06] MEDS: amlodipine 10 mg Tablet PO (09:36)
[2019-11-06] MEDS: apixaban 5 mg Tablet PO ×2 (09:40→17:49)
[2019-11-06] MEDS: ascorbic acid 500 mg Tablet PO (09:41)
[2019-11-06] MEDS: thiamine 100 mg Tablet PO (09:41)
[2019-11-06] MEDS: carvedilol 3.125 mg Tablet PO ×2 (09:41→17:50)
[2019-11-06] MEDS: clopidogrel 75 mg Tablet PO (09:42)
[2019-11-06] MEDS: polyethylene glycol 3350 Pkt 17 gm PO (09:42)
[2019-11-06] MEDS: pantoprazole DR 40 mg Tablet PO (09:42)
[2019-11-06] MEDS: albuterol 8 gm MDI 4 PUFF INHALATION (10:05)
[2019-11-06 10:07] LABS: Anion Gap 12.4 (5-19); Blood Urea Nitrogen 46 mg/dL (8-23); Carbon Dioxide 28 mmol/L (22-29); Chloride 95 mmol/L (98-107); Glucose 311 mg/dL (65-115); Osmolality Calculated 282 mOsm/kg (285-295); Potassium 4.4 mmol/L (3.5-5.1); Sodium 131 mmol/L (136-145)
[2019-11-06 11:13] LABS: Glucose Point of Care 259 mg/dL (70-110)
--- NOTE | 2019-11-06 17:51 | PC.NURSE ---
Discharge to home w/home health services/meds to bed Pt is instructed on his discharge orders, ff-up and his new meds. Educated pt on isolation precaution, handwashing. Oxygen on 3 L/min on. Mask applied for pt and gown. Called house sup. ushered via wheelchair to designated exit.
--- NOTE | 2019-11-06 17:52 | P.DS_ITS ---
Discharge Providers Date of Admission: 10/19/19 21:47 Date of Discharge: November 06, 2019 Attending Provider at Admission: Jose Eduardo Briones Attending Provider at Discharge: Jose Eduardo Briones Primary Care Provider: Nahum Mccarthy Diagnoses at Discharge Discharge Diagnosis (1) COVID-19: Status: Acute (2) ARDS (adult respiratory distress syndrome): Status: Acute (3) Acute respiratory failure with hypoxia: Status: Acute (4) Pulmonary hypertension: Status: Acute (5) Community acquired pneumonia: Status: Acute (6) Atrial fibrillation: Status: Acute Qualifiers: Atrial fibrillation type: longstanding persistent Qualified Code(s): I48.11 - Longstanding persistent atrial fibrillation (7) Acute kidney injury superimposed on CKD: Status: Acute (8) Diabetes: Status: Acute Qualifiers: Diabetes mellitus complication status: with hyperglycemia Diabetes mellitus half-way insulin use: with half-way use Diabetes mellitus type: type 2 Qualified Code(s): E11.65 - Type 2 diabetes mellitus with hyperglycemia; 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 transplanted heart: [place] heart Qualified Code(s): I25.10 - Atherosclerotic heart disease of [place] coronary artery without angina pectoris (10) Hypertension: Status: Acute Qualifiers: Hypertension type: essential hypertension Qualified Code(s): I10 - Essential (primary) hypertension (11) Hyperlipidemia: Status: Acute Qualifiers: Hyperlipidemia type: mixed hyperlipidemia Qualified Code(s): E78.2 - Mixed hyperlipidemia (12) CHF (congestive heart failure): Status: Acute Problem details: With preserved ejection fraction- 60% on ECHO 10/2019 Qualifiers: Heart failure chronicity: chronic Heart failure type: diastolic Qualified Code(s): I50.32 - Chronic diastolic (congestive) heart failure (13) Elevated CK: Status: Acute (14) Transaminitis: Status: Acute Reason for Visit Reason for Visit: WEAKNESS Hospital Course Hospital Course: Pleasant 73-year-old gentleman with history of CAD, CHF, CKD stage III, A. fib, on chronic anticoagulation with Eliquis, DM 2, HTN, HLD, obesity, nephrolithiasis was admitted for assessment management after presenting with symptoms of progressive malaise, fatigue/generalized weakness. Symptoms started about 2 [address] earlier on the way to visit [place] where he spent about a week with progressively worsening fatigue, mild shortness of breath, but otherwise had no fever, chills, muscle aches, headache sore throat, runny nose, or a loss of sensation of smell. In ER noted with fever of 100.9, with new hypoxia requiring 2 L of oxygen by nasal cannula that rapidly progressing oxygen needs to 6 L. With noted mild transaminitis. With noted mild rhabdomyolysis. Subsequently with noted worsening oxygenation, requiring 2 L of oxygen and still decrease in saturation down into the 80s. Prescriptions of CODE STATUS on admission he would not want heroic interventions, but was agreeable for BiPAP support if needed. He was empirically started on treatment for severe COVID-19 due to high suspicion and rapid clinical worsening. Started on Remdisovir, Decadron, received extra dose of Lasix. Was continue empirically on antibiotics for possible bacterial pneumonia with Zosyn, vancomycin. Azithromycin. COVID- 19 testing eventually came back positive. Treatment was continued with Remdisovir, inhalers, empiric antibiotics for possible bacterial pneumonia, steroids for severe pneumonia, ARDS. Continued on Lasix for CHF. Initially with hypoglycemia on presentation, subsequently with hyperglycemia which was difficult to control due to steroids. Transfer was discussed to a higher level facility, however, declined by patient and family. He was assessed by p ulmonology. Antibiotics were gradually de-escalated. He completed the course of Ramdisovir and dexamethasone. Carvedilol dose kept low due to occasional episodes of bradycardia. Lisinopril temporarily held due to transient worsening of renal function. After discontinuation of steroid developed hypoglycemia, and Lantus dose had to be decreased to as low as 10 units. His oxygen requirement plateaued around 40% FiO2 for a while, with continued attempts to wean down. COVID-19 testing was repeated on 10/28, with the test coming back positive. On 10/30 oxygenation worsened significantly, again requiring 100% FiO2, with worsening ARDS. Treatment was restarted for COVID-19 with Remdisovir, dexamethasone, empiric antibiotics were restarted with Primaxin, vancomycin, received additional diuretic. Improved subsequently again, with FiO2 requirement down to 40-45%, and subsequently with continued improvement suspected mostly responsive to diuresis, weaned down on oxygen requirement to 2- 3 L simple cannula. Subjectively he continued to improve, remained afebrile since 10/20. Since the beginning of the week he has had no cough, and subjectively is felt that his breathing is been good. He has had no chest pain or pressure. Functionally he is began getting up initially to standing, and subsequently with standby assistance would walk with a walker in his room, and out into the hallway. Rehabilitation at [facility] was considered, however, this has not been possible with him still being positive for coronavirus, and also with improvement in functioning, he and his family felt secure about him returning home. We have ordered a walker for him. Home health will see him as well. He lives in his own apartment in the basement floor below his daughter and son-in-law who are available to help him if needed. Since his oxygenation has remained stable, we have ordered home oxygen for him by home O2 evaluation to be continued and 3 L. Detailed discussion was had with family regarding continued monitoring of oxygenation, or any worsening symptoms, and return to the hospital in case there is any concern. He will continue diuresis for now, as he still has persistent lower extremity edema. Due to this also amlodipine will not be prescribed. Second course of antibiotic and steroid have been discontinued, and he has done well in the last 2 days. His renal function will need to be monitored and followed up with nephrology as needed. He will need to continue to monitor his glucose. His condition, as well as follow-up was discussed with his primary care provider who will be expecting him in clinic. We have retested him again on 11/04, but unfortunately despite his significant improvement in symptoms the test is still kind of positive, likely due to continued viral shedding. Due to this continued isolation is still recommended as he could still possibly be able to transmit the infection. Additional reassessments and consideration of discontinuation of isolation will need to be conducted in concert with his primary care provider and possibly the health department. Physical Exam Const: COMMON NORMALS: no acute distress and patient oriented x3 GENERAL APPEARANCE: cooperative and comfortable NUTRITIONAL APPEARANCE: overweight ORIENTATION/CONSCIOUSNESS: Yes awake OTHER: He is alert, lucid, appears energetic. In great spirits. Happy to be returning home. HENMT: COMMON NORMALS: oropharynx normal Neck/C-Spine: COMMON NORMALS: no JVD Resp: COMMON NORMALS: normal respiratory effort and clear to auscultation bilaterally AUSCULTATION: clear to auscultation bilaterally Cardio: COMMON NORMALS: no JVD, regular rhythm, S1 normal heart sound present, S2 normal heart sound present and No murmurs present (Cardio) RHYTHM: regular rhythm HEART SOUNDS: S1 normal heart sound present and S2 normal heart sound present GI: COMMON NORMALS: Normal to inspection, nondistended, normoactive bowel sounds present, Soft to palpation and non-tender PALPATION: Yes Soft to palpation Extremity: COMMON NORMALS: no joint enlargement GENERAL: Yes edema (2+) Neuro: COMMON NORMALS: patient oriented x3 and moves all extremities Skin: COMMON NORMALS: no rashes or lesions noted GENERAL SKIN EXAM: no rashes or lesions noted Urinary Catheter Management^: [place]: Cath Placed During This Visit: yes, but has since been removed by the nurse Reason for Continuing Indwelling Catheter: Not indwelling catheter Urinary Catheter Date of Insertion: 10/20/19 Urinary Catheter Time of Insertion: 10:45 Date Urinary Catheter Removed: 10/27/19 Time Urinary Catheter Discontinued: 17:46 Discharge Data Data Completed and Pending: Completed Studies During Hospitalization Category Date Time Status CT chest wo con 7 1250 Urgent Cat Scan 10/20/19 08:08 Completed XR chest 1V jan ble 16042 QAM Exams 10/22/19 06:00 Completed XR chest 1V jan ble [id number] QAM Exams 10/23/19 06:00 Completed XR chest 1V jan ble [id number] QAM Exams 10/25/19 06:00 Completed XR chest 1V jan ble [id number] Routine Exams 10/21/19 07:00 Completed XR chest 1V jan ble [id number] Routine Exams 10/29/19 06:59 Completed XR chest 1V jan ble [id number] Stat Exams 10/19/19 20:13 Completed XR chest 1V jna ble [id number] Stat Exams 10/31/19 10:10 Completed CV echo complete* [id number] Routine Ultrasound 10/20/19 08:08 Completed Labs from last 24 hours 11/06/19 11/06/19 11/06/19 11:06 09:00 07:11 Sodium 131 L Potassium 4.4 Chloride 95 L Carbon Dioxide 28 Anion Gap 12.4 BUN 46 H Creatinine 1.5 H GFR Calculation Not Reportable Glucose 311 H POC Glucose 259 119 Calculated Osmolal ity 282 L Calcium 8.0 L Nasal/Oral COVID-1 9 PCR 11/06/19 11/05/19 11/05/19 04:08 20:00 04:10 Sodium Cancelled Potassium Cancelled Chloride Cancelled Carbon Dioxide Cancelled Anion Gap Cancelled BUN Cancelled Creatinine Cancelled GFR Calculation Cancelled Glucose Cancelled POC Glucose 176 Calculated Osmolal ity Cancelled Calcium Cancelled Nasal/Oral COVID-1 9 PCR See comment Vitals: Last Vital Signs Temp 98.3 F 11/06/19 16:00 Pulse 70 11/06/19 16:00 Resp 22 H 11/06/19 16:00 BP 117/75 11/06/19 16:00 Pulse Ox 94 11/06/19 16:00 Discharge Plan Discharge Patient Disposition: Home Health Service Condition: Stable Prescriptions: New albuterol sulfate 2.5 mg/0.5 mL Solution For Nebulization 2.5 mg inhalation Q4H.RESPIRATORY PRN (Reason: Shortness Of Breath) 30 Days Qty: 1 RF: 1 carvedilol 3.125 mg Tablet 3.125 mg PO BID Qty: 30 RF: 0 benzonatate 100 mg Capsule 100 mg PO TID PRN (Reason: Cough) Qty: 60 RF: 0 bisacodyl 5 mg Tablet,Delayed Release (Dr/Ec) 10 mg PO DAILY PRN (Reason: Constipation) Qty: 30 RF: 0 Miralax 17 gram Powder In Packet 17 g PO BID Qty: 60 RF: 0 Advair Diskus 500-50 mcg/dose Blister With Device 1 puff inhalation BID.RESPIRATORY 30 Days Qty: 1 RF: 0 Spiriva with HandiHaler 18 mcg Capsule, W/Inhalation Device 18 mcg inhalation DAILY.RESPIRATORY Qty: 30 RF: 0 Vitamin B-1 (mononitrate) 100 mg Tablet 100 mg PO BID Qty: 60 RF: 0 Continued amiodarone 200 mg tablet 200 mg PO DAILY RF: 0 atorvastatin 80 mg tablet 80 mg PO DAILY RF: 0 omega-3 fatty acids [Fish Oil Concentrate] 1,000 mg capsule 1,000 mg PO BID RF: 0 calcitriol 0.25 mcg capsule 0.25 mcg PO DAILY RF: 0 glipizide 5 mg tablet 2.5 mg PO BID RF: 0 cholecalciferol (vitamin D3) 50 mcg (2,000 unit) capsule 50 mcg PO DAILY RF: 0 clopidogrel 75 mg tablet 75 mg PO DAILY RF: 0 doxazosin 4 mg tablet 4 mg PO DAILY RF: 0 insulin aspart U-100 [Novolog Flexpen U-100 Insulin] 100 unit/mL (3 mL) insulin pen 24 unit SUBCUT DAILY RF: 0 Eliquis 5 mg tablet 5 mg PO BID RF: 0 furosemide 20 mg tablet 40 mg PO BID Qty: 120 RF: 0 Changed Lantus U-100 Insulin 100 unit/mL solution 20 unit SUBCUT DAILY Qty: 0 RF: 0 Held lisinopril 20 mg tablet 20 mg PO DAILY RF: 0 Hold Instructions: Resume on 11/19/19. 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 If saturation is persistently 88% or below we seek medical attention, similarly if you are having significant worsening of shortness of breath, any chest pain or pressure, high fevers, any severe swelling, lack of urine output, or other problems, please seek medical attention without delay. At home please maintain isolation, until discontinued by your primary care provider since repeat test again came back positive on 11/04. Please isolate in your apartment with door closed, in case of coming in contact with your family wear a mask, and they should wear a mask and gloves as well. Any utensils, dishes, or other objects that they may come in contact with should be disinfected. Please maintain contact with your primary providers office with regards to following up with repeat testing and safe timing of discontinuation of precautions. You can also contact [facility] at the main number and pressing extension 1. Please follow up with urgent care calling them ahead of time or calling main [facility] [place], pressing 1 for COVID hotline and making arrangement to repeat after negative test to repeat second test 24 hours or more after the first. At home continue diuretic with Lasix 40 mg twice a day, continue to watch edema in your legs, as well as measure daily weights and record. 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 Diagnoses COVID-19 U07.1 ARDS (adult respiratory distress syndrome) J80 Acute respiratory failure with hypoxia J96.01 Pulmonary hypertension I27.20 Community acquired pneumonia J18.9 Atrial fibrillation I48.11 Atrial fibrillation type: longstanding persistent Acute kidney injury superimposed on CKD N17.9; N18.9 Diabetes E11.65; Z79.4 Diabetes mellitus complication status: with hyperglycemia Diabetes mellitus half-way insulin use: with half-way use Diabetes mellitus type: type 2 CAD (coronary artery disease) I25.10 Associated angina: without angina Coronary Disease-Associated Artery/Lesion type: [place] artery [place] vs. transplanted heart: [place] heart Hypertension I10 Hypertension type: essential hypertension Hyperlipidemia E78.2 Hyperlipidemia type: mixed hyperlipidemia CHF (congestive heart failure) I50.32 Heart failure chronicity: chronic Heart failure type: diastolic Elevated CK R74.8 Transaminitis R74.0
== END 2019-11-06 17:51 | disposition home health service (06) | DRG 177 ==
LOC: ER 19:51 → CSU 23:03 → ICU 10-20 20:01
PROVIDERS: Emergency Medicine; Family Medicine; Internal Medicine; Student in an Organized Health Care Education/Training Program; Admitting Provider Internal Medicine; PCP Internal Medicine; Visit Provider Internal Medicine
DX: U07.1 COVID-19 (principal); J80 Acute respiratory distress syndrome; J18.9 Pneumonia, unspecified organism; J12.89 Other viral pneumonia; I48.11 Longstanding persistent atrial fibrillation; N17.9 Acute kidney failure, unspecified; I50.32 Chronic diastolic (congestive) heart failure; I13.0 Hypertensive heart and chronic kidney disease with heart failure and stage 1 through stage 4 chronic kidney disease, or unspecified chronic kidney disease; M62.82 Rhabdomyolysis; I27.20 Pulmonary hypertension, unspecified; E11.65 Type 2 diabetes mellitus with hyperglycemia; E11.22 Type 2 diabetes mellitus with diabetic chronic kidney disease; Z66 Do not resuscitate; Z79.4 Long term (current) use of insulin; I25.10 Atherosclerotic heart disease of native coronary artery without angina pectoris; E78.2 Mixed hyperlipidemia; N18.3 Chronic kidney disease, stage 3 (moderate); Z79.01 Long term (current) use of anticoagulants; E66.9 Obesity, unspecified; Z68.35 Body mass index [BMI] 35.0-35.9, adult; R00.1 Bradycardia, unspecified; E11.649 Type 2 diabetes mellitus with hypoglycemia without coma; T38.0X5A Adverse effect of glucocorticoids and synthetic analogues, initial encounter; Y92.230 Patient room in hospital as the place of occurrence of the external cause; Z79.02 Long term (current) use of antithrombotics/antiplatelets; K59.00 Constipation, unspecified
CPT/HCPCS: 12345; 36415; 36416; 36600; 51702; 71045; 71250; 80048; 80051; 80053; 80202; 81001; 82274; 82533; 82550; 82553; 82728; 82803; 82810; 82962; 83520; 83605; 83615; 83630; 83735; 83880; 83986; 84100; 84145; 84443; 84484; 85025; 85378; 85384; 85610; 85651; 86140; 86403; 87040; 87070; 87205; 87449; 87493; 87506; 87635; 87641; 87804; 93005; 93306; 94640; 94660; 94664; 94668; 96372; 96375; 99283; C9113; J0456; J0743; J1100; J1650; J1815 ×2; J1940; J1956; J2543; J3370; J3535; J7050; J7608; J7611

== ENCOUNTER 2019-11-10 19:43 | Outpatient (CLI) | payer OTHER, SELFPAY ==
[2019-11-10 20:18] LABS: Alanine Aminotransferase 35 U/L (0-41); Albumin Level 2.8 g/dL (3.5-5.2); Alkaline Phosphatase 70 IU/L (40-130); Anion Gap 11.8 (5-19); Aspartate Amino Transferase 25 U/L (0-40); Blood Urea Nitrogen 32 mg/dL (8-23); Calcium 8.3 mg/dL (8.5-10.5); Carbon Dioxide 31 mmol/L (22-29); Chloride 96 mmol/L (98-107); Globulin 3.3 g/dL (1.3-4.6); Glucose 128 mg/dL (65-115); Osmolality Calculated 279 mOsm/kg (285-295); Potassium 3.8 mmol/L (3.5-5.1); Sodium 135 mmol/L (136-145); Total Bilirubin 0.6 mg/dL (0.15-1.2); Total Protein 6.1 g/dL (6.6-8.7)
== END 2019-11-10 19:44 | disposition home or self-care (01) ==
LOC: LAB 19:45
PROVIDERS: PCP Internal Medicine; Visit Provider Family Medicine
DX: U07.1 COVID-19 (principal); E11.9 Type 2 diabetes mellitus without complications
CPT/HCPCS: 80053

== ENCOUNTER 2019-11-13 21:58 | Outpatient (CLI) | payer OTHER, MEDICARE, SELFPAY ==
[2019-11-15 19:20] LABS: Quest SARS-CoV-2 RNA NOT DETECTED (NOT DETECTED)
== END 2019-11-13 21:59 | disposition home or self-care (01) ==
PROVIDERS: PCP Internal Medicine; Visit Provider Family Medicine
DX: U07.1 COVID-19 (principal)
CPT/HCPCS: 87635

== ENCOUNTER 2019-11-17 20:40 | Outpatient (CLI) | payer OTHER, MEDICARE, SELFPAY ==
[2019-11-19 22:39] LABS: Quest SARS-CoV-2 RNA NOT DETECTED (NOT DETECTED)
== END 2019-11-17 20:41 | disposition home or self-care (01) ==
LOC: LAB 21:02
PROVIDERS: PCP Internal Medicine; Visit Provider Family Medicine
DX: U07.1 COVID-19 (principal)
CPT/HCPCS: 87635

== ENCOUNTER 2019-11-27 10:53 | Outpatient (CLI) | payer OTHER, MEDICARE, SELFPAY ==
[2019-11-27 11:19] LABS: Basophils % 0.6 %; Eosinophils # 0.1 10^3/uL (0.0-0.8); Eosinophils % 1.7 %; Hematocrit 38.6 % (42.0-52.0); Hemoglobin 12.2 g/dL (11.7-16.6); Lymphocytes # 1.6 10^3/uL (0.8-4.8); Lymphocytes % 31.2 %; Mean Corpuscular HGB Conc 31.6 g/dL (30.0-36.0); Mean Corpuscular Hemoglobin 30.7 pg (28.0-34.0); Mean Corpuscular Volume 97.2 fL (80-94); Mean Platelet Volume 10.1 fL (7.4-10.4); Monocytes # 0.6 10^3/uL (0.2-0.9); Monocytes % 10.7 %; Neutrophils % 55.4 %; Nucleated Red Blood Cells % 0 %; Platelet Count 184 10^3/cmm (130-400); Red Blood Count 3.97 10^6/uL (4.1-5.3); Red Cell Distribution Width 13.9 % (12.1-15.1); White Blood Count 5.2 10^3/uL (4.0-10.0)
[2019-11-27 11:40] LABS: Alanine Aminotransferase 26 U/L (0-41); Alkaline Phosphatase 85 IU/L (40-130); Anion Gap 13.8 (5-19); Aspartate Amino Transferase 32 U/L (0-40); Blood Urea Nitrogen 14 mg/dL (8-23); Calcium 8.8 mg/dL (8.5-10.5); Carbon Dioxide 25 mmol/L (22-29); Chloride 102 mmol/L (98-107); Globulin 2.7 g/dL (1.3-4.6); Glucose 450 mg/dL (65-115); Osmolality Calculated 300 mOsm/kg (285-295); Potassium 3.8 mmol/L (3.5-5.1); Sodium 137 mmol/L (136-145); Total Bilirubin 0.5 mg/dL (0.15-1.2); Total Protein 5.7 g/dL (6.6-8.7)
== END 2019-11-27 10:54 | disposition home or self-care (01) ==
LOC: LAB 10:56
PROVIDERS: PCP Internal Medicine; Visit Provider Family Medicine
DX: E11.9 Type 2 diabetes mellitus without complications (principal)
CPT/HCPCS: 80053; 85025

== ENCOUNTER → 2020-02-18 09:10 | Outpatient (BNVA) | payer OTHER, MEDICARE, SELFPAY | PROVIDERS: PCP Family Medicine; Visit Provider Surgery | DX: Z11.59 Encounter for screening for other viral diseases (principal); K61.0 Anal abscess | CPT/HCPCS: 87635 ==

== ENCOUNTER → 2020-02-23 07:41 | Day surgery (SDC) | payer OTHER, MEDICARE, SELFPAY ==
[2020-02-22 09:48] VITALS: BMI 34.0
[2020-02-23 08:19] VITALS: BP 145/77; PULSE 60; RESP 18; TEMP 36.8; O2SAT 97
[2020-02-23 08:54] LABS: Glucose Point of Care 274 mg/dL (70-110)
[2020-02-23] MEDS: sodium chloride 0.9% 1,000 ML 30 ML IV (09:16)
--- NOTE | 2020-02-23 09:24 | ANES.PREANE2 ---
Pre-Anesthetic Assessment Pre-Anesthetic Assessment: Height/Weight: Height 1.75 m Weight 104.326 kg Temp Pulse Resp BP Pulse Ox 98.2 F 60 18 145/77 97 02/23/20 08:19 02/23/20 08:19 02/23/20 08:19 02/23/20 08:19 02/23/20 08:19 Preop Diagnosis: Perianal abscess Proposed Procedure: Operation Date: 02/23/20 09:40 Proposed Procedures p Exam Under Anesthesia 25530 K61.0(Not Applicable) - Delta Ernandez MD s Poss Incision And Drainage of perianal abscess(Not Applicable) - Delta Ernandez MD Familial anesthetic complications: none Was Beta Kaitlyn taken within 24 hours: N/A Last intake: Intake Last Liquid Date 02/22/20 Last Liquid Time 15:00 Last Solid Date 02/22/20 Last Solid Time 15:00 Social: Social History: No alcohol and No tobacco Exam: Pre-Anes Outpt Exam: alert, oriented x 3, clear to auscultation bilaterally and regular rate & rhythm Airway: Cervical ROM: WNL MP: 3 Dentition: Full Pulmonary: Comments: covid 19 this year - back to baseline CV/HEM: CV/HEM: Afib, CAD (stent 2006) and HTN : : Chronic renal Insufficiency Metabolic: Metabolic: DM and Morbid obesity Neuropsych: Neuropsych: CVA (no residual deficits) Anesthetic Plan: ASA status: 3 Anesthesia: General Risk of > 500 ml blood loss (7ml/kg in children): No Meds/Allergies Current Medications: Current Medications Generic Name Dose Route Start Last Admin Trade Name Freq PRN Reason Stop Dose Admin Sodium Chloride 1,000 mls @ 30 ml s/hr 02/23/20 08:00 02/23/20 09:16 Sodium Chloride 0.9% IV 02/24/20 07:59 30 mls/hr .Q24H DELILAH Administration PFSH Anesthesia PFSH: Medical History Atrial fibrillation CAD (coronary artery disease) CHF (congestive heart failure) With preserved ejection fraction- 60% on ECHO 10/2019 CKD (chronic kidney disease) Diabetes Hyperlipidemia Hypertension Obesity Renal stones Surgical History History of hernia repair Family History Other CAD (coronary artery disease) Cancer Diabetes Social History Smoking and tobacco status: never smoked Alcohol intake: never Lives independently: Yes Household members: other Details: child and grandchild. Housing: Other Current occupational status: retired Data Anesthesia Other Labs: Laboratory Results - last 48 hr 02/23/20 08:31 POC Glucose 274 Cardiac Studies: No Data to Display
--- NOTE | 2020-02-23 10:51 | PC.NURSE ---
Dr Ernandez came through and said that the pt should have had a CT scan before surgery. The CT scan is scheduled for tomorrow. Will try to get it done today if spot available.
[2020-02-23 11:41] LABS: Blood Urea Nitrogen 24 mg/dL (8-23)
== END ==
PROVIDERS: PCP Family Medicine; Visit Provider Surgery
DX: K61.0 Anal abscess (principal); Z53.8 Procedure and treatment not carried out for other reasons
CPT/HCPCS: 36416; 82565; 82962; 84520; J0330; J1100; J2405; J2704; J3490; J7030

== ENCOUNTER 2020-02-24 12:58 | Outpatient (CLI) | payer OTHER, SELFPAY ==
--- NOTE | 2020-02-24 13:06 | CT_ITS ---
WS: [id number] CT pelvis TECHNIQUE: Contrast-enhanced CT of the pelvis with coronal and sagittal reformatted images. CLINICAL INFORMATION: K61.0 - Anal abscess COMPARISON: None. DLP: 828.[address] scans at [facility] use at least one of these dose optimization techniques: automat ed exposure control; mA and/or kV adjustment per patient size (includes targeted exams where dose is matched to clinical indication); or iterative reconstruction. FINDINGS: Small amount of induration and inflammatory stranding involving the perineum extending to the rectum likely represents area of concern. No evidence of drainable abscess or fluid collection. Small amount of induration and soft tissue thickening along the perineum measures 11 mm. Normal sigmoid colon. Sigmoid diverticulosis. No evidence of acute diverticulitis. Prostate calcifica tion. Aortic calcification. A few prominent inguinal lymph nodes more prominent on the left likely re active. Largest left inguinal lymph node measures 16 mm. No free fluid in the pelvis. CT/CT pelvis w con* [id number] IMPRESSION: 1. Small amount of induration and soft tissue thickening along the perineum ex tending to the rectum consistent with recent history of infection. No evidence of drainable abscess or fluid collection. 2. No free fluid in the pelvis. 3. Sigmoid diverticulosis. 4. A few prominent left inguinal lymph nodes likely reactive. 5. No other significant findings.
[2020-02-24] MEDS: iodixanol 320 mg/mL 100mL Btl IV (13:20)
== END 2020-02-24 12:59 | disposition home or self-care (01) ==
LOC: RADWPI 13:05
PROVIDERS: PCP Family Medicine; Visit Provider Surgery
DX: K61.0 Anal abscess (principal); K57.30 Diverticulosis of large intestine without perforation or abscess without bleeding
CPT/HCPCS: 72193; Q9967

== ENCOUNTER → 2020-06-16 09:16 | Outpatient (BNVA) | payer OTHER, SELFPAY | PROVIDERS: PCP Family Medicine; Referring Provider Family Medicine; Visit Provider Urology | DX: Z12.5 Encounter for screening for malignant neoplasm of prostate (principal); N40.0 Benign prostatic hyperplasia without lower urinary tract symptoms | CPT/HCPCS: 81003; G0103 ==

== ENCOUNTER → 2020-08-16 15:52 | Outpatient (BNVA) | payer OTHER, SELFPAY | PROVIDERS: PCP Family Medicine; Visit Provider Internal Medicine Cardiovascular Disease | DX: I13.0 Hypertensive heart and chronic kidney disease with heart failure and stage 1 through stage 4 chronic kidney disease, or unspecified chronic kidney disease (principal); I50.33 Acute on chronic diastolic (congestive) heart failure; I25.10 Atherosclerotic heart disease of native coronary artery without angina pectoris; N18.2 Chronic kidney disease, stage 2 (mild); E78.2 Mixed hyperlipidemia; R06.02 Shortness of breath | CPT/HCPCS: 80048; 83880 ==

== ENCOUNTER → 2020-08-25 11:03 | Outpatient (BNVA) | payer OTHER, SELFPAY | PROVIDERS: PCP Family Medicine; Visit Provider Internal Medicine Cardiovascular Disease | DX: E11.65 Type 2 diabetes mellitus with hyperglycemia (principal); N18.2 Chronic kidney disease, stage 2 (mild); Z79.4 Long term (current) use of insulin; I25.10 Atherosclerotic heart disease of native coronary artery without angina pectoris; I27.20 Pulmonary hypertension, unspecified; I50.32 Chronic diastolic (congestive) heart failure; R60.9 Edema, unspecified | CPT/HCPCS: 80048; 83880 ==

== ENCOUNTER → 2020-09-26 08:36 | Outpatient (BNVA) | payer OTHER, SELFPAY | PROVIDERS: PCP Family Medicine; Visit Provider Internal Medicine Cardiovascular Disease | DX: E11.65 Type 2 diabetes mellitus with hyperglycemia (principal); I25.10 Atherosclerotic heart disease of native coronary artery without angina pectoris; I50.32 Chronic diastolic (congestive) heart failure; Z79.4 Long term (current) use of insulin | CPT/HCPCS: 80048; 83880 ==

== ENCOUNTER → 2020-10-11 09:17 | Outpatient (BNVA) | payer OTHER, SELFPAY | PROVIDERS: PCP Family Medicine; Visit Provider Internal Medicine Cardiovascular Disease | DX: N17.9 Acute kidney failure, unspecified (principal); E11.22 Type 2 diabetes mellitus with diabetic chronic kidney disease; E11.65 Type 2 diabetes mellitus with hyperglycemia; N18.9 Chronic kidney disease, unspecified; I50.32 Chronic diastolic (congestive) heart failure; I25.10 Atherosclerotic heart disease of native coronary artery without angina pectoris; R60.9 Edema, unspecified; Z79.4 Long term (current) use of insulin | CPT/HCPCS: 80048; 83880 ==

== ENCOUNTER → 2020-11-07 08:43 | Outpatient (BNVA) | payer OTHER, SELFPAY | PROVIDERS: PCP Family Medicine; Visit Provider Internal Medicine Cardiovascular Disease | DX: I50.32 Chronic diastolic (congestive) heart failure (principal); I10 Essential (primary) hypertension; E78.5 Hyperlipidemia, unspecified | CPT/HCPCS: 80048; 83880 ==

== ENCOUNTER 2020-12-05 08:14 | Outpatient (CLI) | payer OTHER, SELFPAY ==
--- NOTE | 2020-12-05 08:19 | USCV_ITS ---
Vinh Potts Age: 75 Gender: M : 1945 Exam Date: 12/05/2020 08:31 Ordering Phys: Ros Muñiz MD Technologist: Consuelo Trejo Exam Location: [facility] [place] Indication: BLATERAL LOWER LEG NON HEALING ULCERS BP: 120 / 70 HR: 63 Rhythm: Atrial fibrillation Technical Quality: Adequate MEASUREMENTS (Male / Female) Normal Values 2D ECHO LV Diastolic Diameter PLAX 4.3 cm 4.2 - 5.9 / 3.9 - 5.3 cm LV Systolic Diameter PLAX 2.5 cm LV Chamber Size 3.4 cm IVS Diastolic Thickness 1.3 cm 0.6 - 1.0 / 0.6 - 0.9 cm IVS Systolic Thickness 2.0 cm LVPW Diastolic Thickness 1.8 cm 0.6 - 1.0 / 0.6 - 0.9 cm LVPW Systolic Thickness 2.0 cm RV Chamber Size 2.5 cm LVOT Diameter 2.0 cm LV Ejection Fraction 2D Teich 74.9 % LV Ejection Fraction MOD 2C -34.4 % LV Ejection Fraction 2C AL -32.6 % LA Diameter 4.0 cm LA Width 3.4 cm LA Height 4.8 cm RA Width 3.9 cm RA Height 4.8 cm Aorta at Sinotubular Diameter 3.5 cm M-MODE LV Diastolic Diameter MM 4.7 cm 4.2 - 5.9 / 3.9 - 5.3 cm LV Systolic Diameter MM 3.5 cm LV Ejection Fraction MM Teich 52.1 % IVS Diastolic Thickness MM 1.3 cm 0.6 - 1.0 / 0.6 - 0.9 cm IVS Systolic Thickness MM 1.4 cm LVPW Diastolic Thickness MM 1.3 cm 0.6 - 1.0 / 0.6 - 0.9 cm LVPW Systolic Thickness MM 1.8 cm Aortic Annulus Diameter 3.9 cm LA Ao Ratio MM 1.2 MV E Point Septal Separation 0.8 cm DOPPLER AV Peak Velocity 126.0 cm/s LVOT Peak Velocity 68.0 cm/s AV Area Cont Eq vti 1.8 cm squared AV Area Cont Eq pk 1.7 cm squared MV Area PHT 4.0 cm squared Mitral E to A Ratio 184.7 MV E' Velocity 60.0 cm/s Mitral E to MV E' Ratio 13.4 Mitral E to LV E' Lateral Ratio 12.7 Mitral E to LV E' Septal Ratio 14.2 TR Peak Velocity 218.5 cm/s TR Peak Gradient 19.1 mmHg TR Mean Velocity 165.3 cm/s TR Mean Gradient 12.3 mmHg TR Velocity Time Integral 66.0 cm TV Peak E Velocity 61.0 cm/s Right Atrial Pressure 3.0 mmHg Pulmonary Artery Systolic Pressu 22.1 mmHg PV Peak Velocity 77.0 cm/s RV Acceleration Time 0.1 s RV Ejection Time 0.3 s RV AcT/ET 0.4 FINDINGS Left Ventricle Normal left ventricular cavity size. Borderline left ventricular ejection fraction. Left ventricle ejection fraction around 52% there is no significant regional wall motion abnormality. In the presence of atrial fibrillation diastolic function cannot be assessed accurately. Right Ventricle The right ventricle is normal in size and function. Right Atrium The right atrium is normal in size. Left Atrium The left atrium is normal in size. Mitral Valve Moderately thickened mitral valve. No mitral valve stenosis. Trace mitral valve regurgitation. Aortic Valve Moderate aortic valve calcification. No aortic valve stenosis. No aortic valve regurgitation. Tricuspid Valve Structurally normal tricuspid valve without significant stenosis or regurgitation. Pulmonary artery systolic pressure is normal. Pulmonic Valve Pulmonic valve not well visualized. Pericardium Normal pericardium without effusion. Aorta Normal ascending aorta dimension. CONCLUSIONS 1-Normal left ventricular cavity size. Borderline left ventricular ejection fraction. Left ventricle ejection fraction around 52% there is no significant regional wall motion abnormality. In the presence of atrial fibrillation diastolic function cannot be assessed accurately. 2-Moderately thickened mitral valve. No mitral valve stenosis. Trace mitral valve regurgitation. 3-Moderate aortic valve calcification. No aortic valve stenosis. No aortic valve regurgitation. 4-There is no pericardial effusion. 5-Pulmonary artery systolic pressure is within normal limits. 6-Right atrial pressure is around 5 mm of mercury. 7-No significant change since the prior echocardiogram study of 10/20/2019. Mainor Zhu MD (Electronically Signed) Final Date: 05 December 2020 21:13 S
== END 2020-12-05 08:15 | disposition home or self-care (01) ==
LOC: RAD 08:16
PROVIDERS: PCP Family Medicine; Visit Provider Family Medicine
DX: L97.919 Non-pressure chronic ulcer of unspecified part of right lower leg with unspecified severity; L97.929 Non-pressure chronic ulcer of unspecified part of left lower leg with unspecified severity; I48.91 Unspecified atrial fibrillation; I08.0 Rheumatic disorders of both mitral and aortic valves
CPT/HCPCS: 93306

== ENCOUNTER → 2021-09-19 12:50 | Outpatient (BNVA) | payer OTHER, SELFPAY | PROVIDERS: PCP Family Medicine; Visit Provider Nurse Practitioner Family | DX: I25.10 Atherosclerotic heart disease of native coronary artery without angina pectoris (principal); I10 Essential (primary) hypertension | CPT/HCPCS: 99214 ==

== ENCOUNTER → 2021-10-19 12:50 | Outpatient (BNVA) | payer OTHER, SELFPAY | PROVIDERS: PCP Family Medicine; Referring Provider Family Medicine; Visit Provider Orthopaedic Surgery | DX: M51.36 Other intervertebral disc degeneration, lumbar region (principal); M47.816 Spondylosis without myelopathy or radiculopathy, lumbar region; M81.0 Age-related osteoporosis without current pathological fracture | CPT/HCPCS: 72120; 99203; 99204 ==

== ENCOUNTER → 2021-10-24 13:06 | Outpatient (BNVA) | payer OTHER, SELFPAY | PROVIDERS: PCP Family Medicine; Visit Provider Nurse Practitioner Family | DX: I25.10 Atherosclerotic heart disease of native coronary artery without angina pectoris (principal); I13.0 Hypertensive heart and chronic kidney disease with heart failure and stage 1 through stage 4 chronic kidney disease, or unspecified chronic kidney disease; E11.22 Type 2 diabetes mellitus with diabetic chronic kidney disease; I50.32 Chronic diastolic (congestive) heart failure; N18.2 Chronic kidney disease, stage 2 (mild); Z79.4 Long term (current) use of insulin | CPT/HCPCS: 99214 ==

== ENCOUNTER 2021-11-01 08:36 | Outpatient (RCR) | payer OTHER, SELFPAY | END 2021-11-05 23:59 | disposition home or self-care (01) | LOC: SPT 08:36 | PROVIDERS: PCP Family Medicine; Referring Provider Orthopaedic Surgery; Visit Provider Orthopaedic Surgery | DX: M54.59 Other low back pain (principal) | CPT/HCPCS: 97161 ==

== ENCOUNTER 2021-11-06 06:00 | Outpatient (RCR) | payer OTHER, SELFPAY | END 2021-12-06 23:59 | disposition home or self-care (01) | LOC: SPT 06:00 | PROVIDERS: PCP Family Medicine; Referring Provider Orthopaedic Surgery; Visit Provider Orthopaedic Surgery | DX: M54.50 Low back pain, unspecified (principal) | CPT/HCPCS: 97110 ==

== ENCOUNTER 2021-12-07 06:00 | Outpatient (RCR) | payer OTHER, SELFPAY | END 2021-12-27 23:59 | disposition home or self-care (01) | LOC: SPT 06:00 | PROVIDERS: PCP Family Medicine; Visit Provider Orthopaedic Surgery | DX: M54.50 Low back pain, unspecified (principal) | CPT/HCPCS: 97110 ==

== ENCOUNTER → 2022-05-17 11:44 | Outpatient (BNVA) | payer OTHER, SELFPAY | PROVIDERS: PCP Family Medicine; Visit Provider Internal Medicine Cardiovascular Disease | DX: R06.02 Shortness of breath (principal); I25.10 Atherosclerotic heart disease of native coronary artery without angina pectoris; I11.0 Hypertensive heart disease with heart failure; N18.2 Chronic kidney disease, stage 2 (mild); E11.65 Type 2 diabetes mellitus with hyperglycemia; Z79.4 Long term (current) use of insulin; E78.2 Mixed hyperlipidemia | CPT/HCPCS: 36415; 80048; 83880; 99214 ==

== ENCOUNTER 2022-06-13 15:12 | Outpatient (CLI) | payer OTHER, SELFPAY ==
--- NOTE | 2022-06-13 16:00 | USCV_ITS ---
Vinh Potts Age: 76 Gender: M : 1945 Exam Date: 06/13/2022 16:34 Ordering Phys: Arlene Charlton MD ([email or web address]) Technologist: Agnes Lou Exam Location: [facility] [place] Indication: CHF BP: 142 / 68 HR: 62 Rhythm: Sinus Technical Quality: Technically difficult study MEASUREMENTS (Male / Female) Normal Values 2D ECHO LV Diastolic Diameter PLAX 3.3 cm 4.2 - 5.9 / 3.9 - 5.3 cm LV Systolic Diameter PLAX 2.9 cm IVS Diastolic Thickness 1.2 cm 0.6 - 1.0 / 0.6 - 0.9 cm IVS Systolic Thickness 1.5 cm LVPW Diastolic Thickness 3.4 cm 0.6 - 1.0 / 0.6 - 0.9 cm LVPW Systolic Thickness 1.7 cm LVOT Diameter 2.1 cm LV Ejection Fraction 2D Teich 56.5 % LV Ejection Fraction MOD 2C 65.2 % LV Ejection Fraction 2C AL 64.0 % LA Diameter 4.6 cm LA Width 4.1 cm LA Height 7.4 cm RA Width 3.6 cm RA Height 5.8 cm Aorta at Sinotubular Diameter 2.4 cm IVC Diameter 2.0 cm DOPPLER LVOT Peak Velocity 106.0 cm/s MV Peak Velocity 126.0 cm/s MV Area PHT 4.8 cm squared Mitral E to A Ratio 3.7 MV E' Velocity 50.5 cm/s Mitral E to MV E' Ratio 9.6 Mitral E to LV E' Lateral Ratio 8.5 Mitral E to LV E' Septal Ratio 11.0 TR Peak Velocity 205.0 cm/s TR Peak Gradient 16.8 mmHg Right Atrial Pressure 5.0 mmHg Pulmonary Artery Systolic Pressu 21.8 mmHg RV Acceleration Time 0.1 s RV Ejection Time 0.3 s RV AcT/ET 0.4 FINDINGS Left Ventricle Normal left ventricular size and systolic function, EF 69 %. No regional wall motion abnormalities. Right Ventricle Normal right ventricular size and systolic function. Right Atrium Normal right atrial size. Left Atrium Mildly increased left atrial size. Mitral Valve No gross abnormalities noted Aortic Valve No gross abnormalities noted Tricuspid Valve Mild tricuspid valve regurgitation. Pulmonic Valve Pulmonic valve not well visualized. Pericardium No pericardial effusion. Aorta Normal aortic annulus size. IVC Normal inferior vena cava. CONCLUSIONS Normal left ventricular size and systolic function, EF 69 %. Mildly increased left atrial size. No regional wall motion abnormalities. There is no pericardial effusion. Technically difficult study (Echo contrast - Optison was used to delineate the endocardium and to estimate the LV ejection fraction) Dr Arlene Charlton MD [facility] (Electronically Signed) Final Date: 18 June 2022 09:41 S
[2022-06-13] MEDS: perflutren protein-a microsphr 0.22 mg/mL SDV 3 mL IV (17:50)
== END 2022-06-13 15:13 | disposition home or self-care (01) ==
LOC: RAD 15:15
PROVIDERS: PCP Family Medicine; Visit Provider Internal Medicine Cardiovascular Disease
DX: I50.9 Heart failure, unspecified (principal); I51.7 Cardiomegaly
CPT/HCPCS: C8929; Q9956

== ENCOUNTER → 2022-11-15 10:52 | Outpatient (BNVA) | payer OTHER, SELFPAY | PROVIDERS: PCP Family Medicine; Visit Provider Internal Medicine Cardiovascular Disease | DX: I25.10 Atherosclerotic heart disease of native coronary artery without angina pectoris (principal); I12.9 Hypertensive chronic kidney disease with stage 1 through stage 4 chronic kidney disease, or unspecified chronic kidney disease; I50.32 Chronic diastolic (congestive) heart failure; N18.2 Chronic kidney disease, stage 2 (mild); E11.22 Type 2 diabetes mellitus with diabetic chronic kidney disease; I27.20 Pulmonary hypertension, unspecified; E11.65 Type 2 diabetes mellitus with hyperglycemia; Z79.4 Long term (current) use of insulin; E78.2 Mixed hyperlipidemia; Z79.01 Long term (current) use of anticoagulants | CPT/HCPCS: 99214 ==

== ENCOUNTER → 2022-12-20 13:11 | Outpatient (BNVA) | payer OTHER, SELFPAY | PROVIDERS: PCP Family Medicine; Visit Provider Dermatology | DX: R22.1 Localized swelling, mass and lump, neck (principal); R22.2 Localized swelling, mass and lump, trunk; L82.0 Inflamed seborrheic keratosis; L57.0 Actinic keratosis; L82.1 Other seborrheic keratosis; L81.4 Other melanin hyperpigmentation; L57.8 Other skin changes due to chronic exposure to nonionizing radiation | CPT/HCPCS: 17000; 17003; 17110; 99213 ==

== ENCOUNTER → 2023-02-04 08:10 | Outpatient (BNVA) | payer OTHER, SELFPAY | PROVIDERS: PCP Family Medicine; Visit Provider Podiatrist Foot & Ankle Surgery | DX: B35.1 Tinea unguium (principal); I73.9 Peripheral vascular disease, unspecified; E11.65 Type 2 diabetes mellitus with hyperglycemia; Z79.4 Long term (current) use of insulin; N18.2 Chronic kidney disease, stage 2 (mild); E11.22 Type 2 diabetes mellitus with diabetic chronic kidney disease | CPT/HCPCS: 11721; 99203 ==

== ENCOUNTER → 2023-04-15 09:10 | Outpatient (BNVA) | payer OTHER, SELFPAY | PROVIDERS: PCP Family Medicine; Visit Provider Podiatrist Foot & Ankle Surgery | DX: I73.9 Peripheral vascular disease, unspecified (principal); B35.1 Tinea unguium; E11.65 Type 2 diabetes mellitus with hyperglycemia; Z79.4 Long term (current) use of insulin; N18.2 Chronic kidney disease, stage 2 (mild); E11.22 Type 2 diabetes mellitus with diabetic chronic kidney disease | CPT/HCPCS: 11721 ==

== ENCOUNTER → 2023-06-03 09:40 | Outpatient (BNVA) | payer OTHER, SELFPAY | PROVIDERS: PCP Family Medicine; Visit Provider Internal Medicine Cardiovascular Disease | DX: I25.10 Atherosclerotic heart disease of native coronary artery without angina pectoris (principal); I13.0 Hypertensive heart and chronic kidney disease with heart failure and stage 1 through stage 4 chronic kidney disease, or unspecified chronic kidney disease; N18.2 Chronic kidney disease, stage 2 (mild); I50.32 Chronic diastolic (congestive) heart failure; E11.65 Type 2 diabetes mellitus with hyperglycemia; E11.22 Type 2 diabetes mellitus with diabetic chronic kidney disease; Z79.4 Long term (current) use of insulin; E78.2 Mixed hyperlipidemia; I73.9 Peripheral vascular disease, unspecified; I27.20 Pulmonary hypertension, unspecified | CPT/HCPCS: 99214 ==

== ENCOUNTER → 2023-06-24 08:50 | Outpatient (BNVA) | payer OTHER, SELFPAY | PROVIDERS: PCP Family Medicine; Visit Provider Podiatrist Foot & Ankle Surgery | DX: B35.1 Tinea unguium (principal); I73.9 Peripheral vascular disease, unspecified; E11.65 Type 2 diabetes mellitus with hyperglycemia; Z79.4 Long term (current) use of insulin; N18.2 Chronic kidney disease, stage 2 (mild) | CPT/HCPCS: 11721 ==

== ENCOUNTER → 2023-08-26 08:54 | Outpatient (BNVA) | payer OTHER, SELFPAY | PROVIDERS: PCP Family Medicine; Visit Provider Podiatrist Foot & Ankle Surgery | DX: B35.1 Tinea unguium (principal); I73.9 Peripheral vascular disease, unspecified; E11.65 Type 2 diabetes mellitus with hyperglycemia; Z79.4 Long term (current) use of insulin; N18.2 Chronic kidney disease, stage 2 (mild) | CPT/HCPCS: 11721 ==

== ENCOUNTER → 2023-10-28 10:15 | Outpatient (BNVA) | payer OTHER, SELFPAY | PROVIDERS: PCP Family Medicine; Visit Provider Podiatrist Foot & Ankle Surgery | DX: B35.1 Tinea unguium (principal); I73.9 Peripheral vascular disease, unspecified; E11.65 Type 2 diabetes mellitus with hyperglycemia; Z79.4 Long term (current) use of insulin; N18.2 Chronic kidney disease, stage 2 (mild); E11.29 Type 2 diabetes mellitus with other diabetic kidney complication | CPT/HCPCS: 11721 ==

== ENCOUNTER → 2023-11-27 09:03 | Outpatient (BNVA) | payer OTHER, SELFPAY | PROVIDERS: PCP Family Medicine; Visit Provider Internal Medicine Cardiovascular Disease | DX: I25.10 Atherosclerotic heart disease of native coronary artery without angina pectoris (principal); I73.9 Peripheral vascular disease, unspecified; I50.32 Chronic diastolic (congestive) heart failure; I10 Essential (primary) hypertension; E78.2 Mixed hyperlipidemia; I27.20 Pulmonary hypertension, unspecified; E11.65 Type 2 diabetes mellitus with hyperglycemia; Z79.4 Long term (current) use of insulin; N18.2 Chronic kidney disease, stage 2 (mild); I13.0 Hypertensive heart and chronic kidney disease with heart failure and stage 1 through stage 4 chronic kidney disease, or unspecified chronic kidney disease; E11.22 Type 2 diabetes mellitus with diabetic chronic kidney disease | CPT/HCPCS: 99214 ==

== ENCOUNTER → 2023-12-23 09:06 | Outpatient (BNVA) | payer OTHER, SELFPAY | PROVIDERS: PCP Family Medicine; Visit Provider Nurse Practitioner Family | DX: L57.0 Actinic keratosis (principal); R22.1 Localized swelling, mass and lump, neck; R22.2 Localized swelling, mass and lump, trunk; L82.1 Other seborrheic keratosis; L81.4 Other melanin hyperpigmentation; L57.8 Other skin changes due to chronic exposure to nonionizing radiation; D18.01 Hemangioma of skin and subcutaneous tissue | CPT/HCPCS: 17000; 99214 ==

== ENCOUNTER 2023-12-24 12:34 | Outpatient (CLI) | payer OTHER, SELFPAY ==
[2023-12-24 14:04] LABS: Blood Urea Nitrogen 41 mg/dL (8-23)
== END 2023-12-24 12:35 | disposition home or self-care (01) ==
PROVIDERS: PCP Family Medicine; Visit Provider Nurse Practitioner Family
DX: R22.2 Localized swelling, mass and lump, trunk (principal)
CPT/HCPCS: 36415; 84520

== ENCOUNTER → 2024-01-07 09:59 | Outpatient (BNVA) | payer OTHER, SELFPAY | PROVIDERS: PCP Family Medicine; Visit Provider Podiatrist Foot & Ankle Surgery | DX: B35.1 Tinea unguium (principal); I73.9 Peripheral vascular disease, unspecified; E11.65 Type 2 diabetes mellitus with hyperglycemia; Z79.4 Long term (current) use of insulin; N18.2 Chronic kidney disease, stage 2 (mild) | CPT/HCPCS: 11721 ==

== ENCOUNTER 2024-02-03 09:16 | Outpatient (CLI) | payer OTHER, SELFPAY ==
--- NOTE | 2024-02-03 09:20 | CT_ITS ---
WS: [id number] CT NECK NONCONTRAST HISTORY: ACTINIC KERATOSIS TECHNIQUE: Contiguous 2 mm axial images are performed through the neck without intravenous contrast. Sagittal and coronal reformats are also submitted. All CT scans at [facility] use at least on e of these dose optimization techniques: automated exposure control; mA and/or kV adjustment per alexia ent size (includes targeted exams where dose is matched to clinical indication); or iterative reconst ruction. CONTRAST: CONTRAST: None DLP: 359.96 mGy.cm COMPARISON: 07/18/2017 No marker is placed in the region of the palpable abnormality. No soft tissue masses noted along the inferior neck. There is a very tiny superficial nodule in the upper midline of the thorax which is no nspecific measuring approximately 5 mm. Nasopharynx, oropharynx, hypopharynx and larynx are unremarkable. No soft tissue masses or abnormal e nhancement. Torus tubarius and fossa of Rosenmuller and parapharyngeal fat are normal. Very small, subcentimeter cervical chain lymph nodes do not appear to be pathologic. Thyroid gland and salivary glands are normally enhancing with no masses. Mild spondylitic disease in the cervical spine. Disc spaces are narrowed. Partial fusion of the RIGHT C4-5 facet joint. Visualized portions of the skull base demonstrate no abnormalities. Orbits and globes are within norm al limits. No soft tissue masses. Visualized paranasal sinuses and mastoid air cells are normal. Atherosclerotic calcifications in the carotid bifurcations, greater distribution at the LEFT bifurcat ion with stenosis approximately 50%. CT/CT neck wo con [id number] IMPRESSION: 1. No neck mass identified. 2. Subcentimeter and nonpathologic appearing cervical chain lymph nodes.
--- NOTE | 2024-02-03 09:20 | CT_ITS ---
WS: [id number] CT chest wo con [id number] HISTORY: ACTINIC KERATOSIS TECHNIQUE: Axial imaging performed through the thorax. Coronal and sagittal reformats are submitted. All CT scans at [facility] use at least one of these dose optimization techniques: automated exposure control; mA and/or kV adjustment per patient size (includes targeted exams where dose is mat ched to clinical indication); or iterative reconstruction. CONTRAST: None DLP: 709.31 mGy.cm COMPARISON: 10/20/2019 Lungs and central airway: Peripheral bilateral upper and lower lobe mild interstitial thickening and prominence. Much improved aeration as compared to 10/20/2019. There are a few tiny peripheral micronod ules and a few calcifications. No mass. Pleura: Normal. No pleural effusion. Heart and pericardium: Mild cardiomegaly. No pericardial effusion. Mediastinum and lew: A few small calcified lymph nodes in the hilum. Vessels: Mild atherosclerosis thoracic aorta. Normal size pulmonary artery. Coronary arteries are hea vily calcified. Chest wall and lower neck: 3 mm very vague nodule in the LEFT chest wall was not present in 2019. Thi s is a nonspecific. Upper abdomen: Large gallstone measuring 3.9 cm. Hepatic cyst 2.1 x 2.5 cm. Small hiatal hernia. No a drenal mass. Mild atrophy superior pole of each kidney. Moderate diffuse pancreatic atrophy. Osseous structures: No destructive process. CT/CT chest wo con [id number] IMPRESSION: 1. Very mild interstitial thickening appears chronic throughout both lungs. Ma rked improvement in pulmonary aeration since 2019. 2. No mediastinal or hilar adenopathy. 3. Very heavy dense calcification in the coronary arteries. 4. Cholelithiasis without acute cholecystitis. 5. Hepatic cyst. 6. Marked diffuse pancreatic atrophy.
[2024-02-03 10:48] LABS: Blood Urea Nitrogen 25 mg/dL (8-23)
== END 2024-02-03 09:17 | disposition home or self-care (01) ==
LOC: RAD 09:16
PROVIDERS: PCP Family Medicine; Visit Provider Nurse Practitioner Family
DX: R91.1 Solitary pulmonary nodule (principal); I25.84 Coronary atherosclerosis due to calcified coronary lesion; K80.20 Calculus of gallbladder without cholecystitis without obstruction; K86.89 Other specified diseases of pancreas
CPT/HCPCS: 70490; 71250; 82565; 84520

== ENCOUNTER → 2024-03-10 08:25 | Outpatient (BNVA) | payer OTHER, SELFPAY | PROVIDERS: PCP Family Medicine; Visit Provider Podiatrist Foot & Ankle Surgery | DX: B35.1 Tinea unguium (principal); I73.9 Peripheral vascular disease, unspecified; E11.65 Type 2 diabetes mellitus with hyperglycemia; Z79.4 Long term (current) use of insulin; N18.2 Chronic kidney disease, stage 2 (mild) | CPT/HCPCS: 11721 ==

== ENCOUNTER → 2024-03-24 10:32 | Outpatient (BNVA) | payer OTHER, SELFPAY | PROVIDERS: PCP Family Medicine; Referring Provider Family Medicine; Visit Provider Surgery | DX: R22.1 Localized swelling, mass and lump, neck (principal) | CPT/HCPCS: 99203 ==

== ENCOUNTER 2024-04-06 13:12 | Outpatient (CLI) | payer OTHER, SELFPAY ==
--- NOTE | 2024-04-06 13:30 | US_ITS ---
WS: [id number] ULTRASOUND SOFT TISSUES RIGHT posterior neck. HISTORY: subcutaneous mass on neck COMPARISON: None available. TECHNIQUE: 2-D and color Doppler imaging is submitted. No mass is identified along the posterior RIGHT neck at the site of the palpable abnormality. No area s of increased vascularity. US/US soft tissue head neck [id number] IMPRESSION: No RIGHT posterior cervical chain neck mass identified by ultrasound. If there is continued concern for neck mass consider follow-up evaluation by neck CT wit h contrast.
== END 2024-04-06 13:13 | disposition home or self-care (01) ==
LOC: RAD 13:13
PROVIDERS: PCP Family Medicine; Visit Provider Surgery
DX: R22.1 Localized swelling, mass and lump, neck (principal)
CPT/HCPCS: 76536

== ENCOUNTER → 2024-04-28 08:43 | Outpatient (BNVA) | payer OTHER, SELFPAY | PROVIDERS: PCP Family Medicine; Visit Provider Surgery | DX: Z09 Encounter for follow-up examination after completed treatment for conditions other than malignant neoplasm (principal); R03.0 Elevated blood-pressure reading, without diagnosis of hypertension | CPT/HCPCS: 99214 ==

== ENCOUNTER → 2024-05-21 08:34 | Outpatient (BNVA) | payer OTHER, SELFPAY | PROVIDERS: PCP Family Medicine; Visit Provider Podiatrist Foot & Ankle Surgery | DX: E11.65 Type 2 diabetes mellitus with hyperglycemia (principal); B35.1 Tinea unguium; L84 Corns and callosities; I73.9 Peripheral vascular disease, unspecified; Z79.4 Long term (current) use of insulin; N18.2 Chronic kidney disease, stage 2 (mild) | CPT/HCPCS: 11055; 11721 ==

== ENCOUNTER → 2024-05-26 08:25 | Outpatient (BNVA) | payer OTHER, SELFPAY | PROVIDERS: PCP Family Medicine; Visit Provider Nurse Practitioner Family | DX: I25.10 Atherosclerotic heart disease of native coronary artery without angina pectoris (principal); I13.0 Hypertensive heart and chronic kidney disease with heart failure and stage 1 through stage 4 chronic kidney disease, or unspecified chronic kidney disease; I50.32 Chronic diastolic (congestive) heart failure; N18.9 Chronic kidney disease, unspecified; E78.2 Mixed hyperlipidemia; E11.22 Type 2 diabetes mellitus with diabetic chronic kidney disease; I27.20 Pulmonary hypertension, unspecified; Z79.4 Long term (current) use of insulin | CPT/HCPCS: 99214 ==

== ENCOUNTER → 2024-07-22 08:38 | Outpatient (BNVA) | payer OTHER, SELFPAY | PROVIDERS: PCP Family Medicine; Visit Provider Podiatrist Foot & Ankle Surgery | DX: E11.65 Type 2 diabetes mellitus with hyperglycemia (principal); B35.1 Tinea unguium; I73.9 Peripheral vascular disease, unspecified; Z79.4 Long term (current) use of insulin; N18.2 Chronic kidney disease, stage 2 (mild) | CPT/HCPCS: 11721 ==

== ENCOUNTER → 2024-09-22 08:29 | Outpatient (BNVA) | payer OTHER, SELFPAY | PROVIDERS: PCP Family Medicine; Visit Provider Podiatrist Foot & Ankle Surgery | DX: E11.65 Type 2 diabetes mellitus with hyperglycemia (principal); B35.1 Tinea unguium; I73.9 Peripheral vascular disease, unspecified; Z79.4 Long term (current) use of insulin; N18.2 Chronic kidney disease, stage 2 (mild) | CPT/HCPCS: 11721 ==

== ENCOUNTER → 2024-11-25 08:31 | Outpatient (BNVA) | payer OTHER, SELFPAY | PROVIDERS: PCP Family Medicine; Visit Provider Podiatrist Foot & Ankle Surgery | DX: E11.65 Type 2 diabetes mellitus with hyperglycemia (principal); B35.1 Tinea unguium; I73.9 Peripheral vascular disease, unspecified; Z79.4 Long term (current) use of insulin; N18.2 Chronic kidney disease, stage 2 (mild) | CPT/HCPCS: 11721 ==

== ENCOUNTER → 2024-12-10 10:20 | Outpatient (BNVA) | payer OTHER, SELFPAY | PROVIDERS: PCP Family Medicine; Visit Provider Internal Medicine Cardiovascular Disease | DX: I25.10 Atherosclerotic heart disease of native coronary artery without angina pectoris (principal); I73.9 Peripheral vascular disease, unspecified; I13.0 Hypertensive heart and chronic kidney disease with heart failure and stage 1 through stage 4 chronic kidney disease, or unspecified chronic kidney disease; E11.22 Type 2 diabetes mellitus with diabetic chronic kidney disease; N18.9 Chronic kidney disease, unspecified; I50.30 Unspecified diastolic (congestive) heart failure; Z79.4 Long term (current) use of insulin; I48.0 Paroxysmal atrial fibrillation; Z79.01 Long term (current) use of anticoagulants; E78.5 Hyperlipidemia, unspecified | CPT/HCPCS: 99214 ==

== ENCOUNTER → 2025-01-20 09:42 | Outpatient (BNVA) | payer OTHER, SELFPAY | PROVIDERS: PCP Family Medicine; Visit Provider Nurse Practitioner Family | DX: R22.1 Localized swelling, mass and lump, neck (principal); R22.2 Localized swelling, mass and lump, trunk; I78.1 Nevus, non-neoplastic; L73.8 Other specified follicular disorders; L91.8 Other hypertrophic disorders of the skin; D69.2 Other nonthrombocytopenic purpura; L57.8 Other skin changes due to chronic exposure to nonionizing radiation; L82.1 Other seborrheic keratosis; D48.5 Neoplasm of uncertain behavior of skin; L57.0 Actinic keratosis | CPT/HCPCS: 11102; 17000; 99213 ==

== ENCOUNTER → 2025-01-27 07:39 | Outpatient (BNVA) | payer OTHER, SELFPAY | PROVIDERS: PCP Family Medicine; Visit Provider Podiatrist Foot & Ankle Surgery | DX: E11.65 Type 2 diabetes mellitus with hyperglycemia (principal); B35.1 Tinea unguium; E11.8 Type 2 diabetes mellitus with unspecified complications; I73.9 Peripheral vascular disease, unspecified; Z79.4 Long term (current) use of insulin; N18.2 Chronic kidney disease, stage 2 (mild) | CPT/HCPCS: 11721 ==